=== PATIENT | female | born 1990 | race Caucasian/White ===

== ENCOUNTER → 2019-05-20 10:29 | Outpatient (CLI) | payer MEDICAID, SELFPAY ==
[2014-07-11 08:45] VITALS: BMI 27.5
[2019-05-20 12:08] LABS: Absolute Lymphocyte Count 3.35 X10^3/uL (0.83-4.51); Absolute Neutrophil Count 4.9 X10^3/uL (2.0-7.7); Basophil# 0.02 X10^3/uL; Basophil% 0.2 % (0-1); Eosinophil# 0.47 X10^3/uL; Hemoglobin 11.5 g/dL (12.0-15.0); Lymphocyte # 3.35 X10^3/ul (4.0); Lymphocyte % 35.9 % (19-41); Mean Corp Hgb Conc 31.1 g/dL (32-36); Mean Corpuscular Hgb 26.6 pg (27.0-32.0); Mean Corpuscular Volume 85.5 fL (81-99); Mean Platelet Vol. 9.1 fl (6.2-12.0); Monocyte# 0.56 X10^3/uL; NRBC Flagged by Analyzer 0 % (0-5); Neutrophil # 4.92 X10^3/uL (2.7-7.7); Neutrophil % 52.8 % (47-70); Platelet Count 521 K/mm3 (150-450); RBC Distribution Width CV 15.3 % (11.6-14.6); Red Blood Count 4.33 M/mm3 (4.2-5.4); White Blood Count 9.3 K/mm3 (4.4-11.0)
[2019-05-20 12:21] LABS: ALB/GLOB Ratio 0.8 RATIO (0.9-2.4); AST(SGOT) 13 U/L (15-37); Alanine Aminotransfer ALT/SGPT 18 U/L (13-56); Albumin, Serum 3.3 g/dL (3.2-5.0); Alkaline Phosphatase 86 U/L (45-117); Anion Gap 7 (5-15); BUN 7 mg/dL (7-18); BUN/Creat Ratio 10.4 RATIO (10-20); Calcium,Total 8.5 mg/dL (8.5-10.1); Chloride 107 mmol/L (98-107); Cholesterol 246 mg/dL (200); Creatinine, Serum 0.67 mg/dL (0.55-1.02); EST Glomerular Filtration Rate 109 mL/min (>60); Est Glom Filt Rate - Afr Amer 132 mL/min (>60); Globulin 3.9 g/dL (2.2-4.2); Glucose 100 mg/dL (74-106); High Density Lipoprotein 42 mg/dL; Potassium 3.8 mmol/L (3.5-5.1); Protein, Total 7.2 g/dL (6.4-8.2); Sodium Level 138 mmol/L (136-145); Triglycerides 154 mg/dL; Very Low Density Lipoprotein 31 mg/dL (5-40)
[2019-05-22 16:07] LABS: Alternaria alternata 0.12 kU/L (Class 0/I); Aspergillus fumigatus 0.16 kU/L (Class 0/I); Bahia Grass 1.68 kU/L (Class III); Bermuda Grass 1.89 kU/L (Class III); Bluegrass, Kentucky 1.81 kU/L (Class III); Cat Hair/Dander, Standard 0.11 kU/L (Class 0/I); Cedar, Mountain 1.42 kU/L (Class III); Cladosporium herbarum 0.12 kU/L (Class 0/I); D farinae Mite 4.18 kU/L (Class IV); D pteronyssinus 4.12 kU/L (Class IV); Dog Epithelia 0.66 kU/L (Class II); Elm, American White 1.82 kU/L (Class III); Hazelnut Tree 1.71 kU/L (Class III); Hickory, White 1.98 kU/L (Class III); Johnson Grass 1.95 kU/L (Class III); Maple/Box Elder 1.88 kU/L (Class III); Mucor racemosus 0.31 kU/L (Class 0/I); Mugwort 1.85 kU/L (Class III); Mulberry, White 1.59 kU/L (Class III); Oak, White 1.77 kU/L (Class III); Penicillium chrysogen <0.10 kU/L (Class 0); Plantain, English 2.19 kU/L (Class III); Ragweed, Short/Common 3.56 kU/L (Class III); Sheep Sorrel(Dock) 2.15 kU/L (Class III); Sweet Gum 2.35 kU/L (Class III)
[2019-05-23 12:03] LABS: Nettle 1.73 kU/L (Class III)
== END ==
PROVIDERS: PCP Family Medicine; Referring Provider Family Medicine; Visit Provider Family Medicine
DX: J30.9 Allergic rhinitis, unspecified (principal); Z82.49 Family history of ischemic heart disease and other diseases of the circulatory system
CPT/HCPCS: 36415; 80053; 80061; 85025; 86003

== ENCOUNTER 2020-12-25 14:20 | Emergency (ER) | payer MEDICAID, SELFPAY ==
[2020-12-25 14:23] VITALS: BP 126/92; PULSE 79; RESP 18; TEMP 36.6; O2SAT 98; BMI 30.6
[2020-12-25 14:57] VITALS: BP 127/101; PULSE 79; RESP 16; O2SAT 98
--- NOTE | 2020-12-25 14:59 | RAD_ITS ---
STUDY: X-RAY CHEST REASON FOR EXAM: Female, 30 years old. Cp TECHNIQUE: Single AP portable view of the chest. COMPARISON: None. FINDINGS: EKG electrodes are seen. The lungs are clear and expanded. There is no demonstrated pleural abnormality. Normal size heart. Normal mediastinum and milton. Normal visualized pulmonary arteries. Normal visualized aortic arch and descending thoracic aorta. Normal visualized thoracic spine. Normal visualized ribs, clavicles, and shoulders. There is no demonstrated abnormality of the visualized soft tissue structures of the upper abdomen. RAD/Chest 1 View (Portable) IMPRESSION: Normal x-ray examination of the chest. Electronically Signed: Alberto Padilla MD at 15:10 EDT , Service support ,
--- NOTE | 2020-12-25 15:46 | EKG12_ITS ---
Test Reason : CP Blood Pressure : / mmHG Vent. Rate : 073 BPM Atrial Rate : 073 BPM P-R Int : 126 ms QRS Dur : 076 ms QT Int : 428 ms P-R-T Axes : 055 039 055 degrees QTc Int : 471 ms Sinus rhythm with marked sinus arrhythmia Low voltage QRS Borderline ECG Confirmed by RAMYA THOMSON, JOSE ALBERTO ([id number]), news editor BRIDGET RM ([id number]) on 12/28/2020 11:12:36 AM Referred By: Confirmed By:JOSE ALBERTO BUI MD
--- NOTE | 2020-12-25 16:06 | ED.VIS.CHEST ---
HPI History of Present Illness Chief Complaint: Chest Pain Narrative Narrative: Patient presents with 1 day of bilateral upper chest wall pain unknown if there is any injury however she when she moves her arms she has chest pain she has no pleuritic component she has no shortness of breath no radiation of the chest pain. No recent fever chills cough or congestion no abdominal pain. PFSH PFSH Medical History Smoker Home Medications naproxen [Naprosyn] 500 mg PO BID #14 tab 12/25/20 [Rx Last Taken Unknown] Allergy/AdvReac Type Severity Reaction Status Date / Time amoxicillin Allergy Unknown Verified 12/25/20 14:25 Penicillins Allergy Unknown Verified 12/25/20 14:25 Social History Smoking Status: Current every day smoker tobacco type: cigarettes ROS ROS ED ROS Narrative Past medical history: Reviewed Medications: Reviewed Social history: Noncontributory Review of systems: All systems negative except as indicated General: No fever Eyes: No visual changes ENT: No upper airway congestion, normal voice Neck: No neck pain Cardiovascular: Chest pain as in HPI Respiratory: No shortness of breath or cough Gastrointestinal: No abdominal pain, nausea vomiting or diarrhea Genitourinary: No dysuria Musculoskeletal: Denies myalgias no difficulty with ambulation Skin: No rash Neurological: No memory loss, confusion or any focal weakness Psych: No recent behavioral changes Hematologic: No easy bleeding or easy bruising EXAM Physical Exam Narrative Exam Narrative: Physical exam General: Well nourished, Well developed, No Acute Distress Head: Normocephalic, Atraumatic Eyes: Conjunctiva not pale ENT: Moist mucous membranes Neck: Supple, Nontender, No lymphadenopathy Cardiovascular: Regular rate, Regular rhythm Chest wall: She has bilateral reproducible chest wall pain both with palpation and with movement of the arms. Respiratory: No distress, CTA bilaterally Abdomen: Soft, Nontender, Nondistended Back: Nontender, Normal Inspection. Negative for: CVA tenderness Extremities: Nontender, No edema Skin: Normal color, No rash Neurological: Alert, Normal Strength, Normal Sensation Psychological: Normal affect Const Vital Signs: 12/25/20 14:23 12/25/20 14:57 Temperature 98 F Temperature Source Temporal Pulse Rate 79 79 Respiratory Rate 18 16 Respiratory Effort Normal Blood Pressure 126/92 H 127/101 H Blood Pressure Mean 103 109 Pulse Ox 98 98 Oxygen Delivery Method Room Air Room Air MDM MDM MDM Narrative Medical decision making narrative: Patient has a normal EKG and chest x-ray this is likely musculoskeletal all discharged in stable condition. Radiography Diagnostic Testing: Clinical Impression(s) from Imaging Studies Chest X-Ray 12/25/20 14:59 IMPRESSION: Normal x-ray examination of the chest. Electronically Signed: Alberto Padilla MD at 15:10 EDT , Service support , Discharge Plan Triage Chief Complaint: Chest Pain ED Provider: Han Sandhu Dx/Rx/DC Orders Clinical Impression: Chest pain Instructions: ED Chest Pain, Uncertain Cause Prescriptions: New naproxen [Naprosyn] 500 mg tablet 500 mg PO BID Qty: 14 RF: 0 Primary Care Provider: Ranjeet Bernard Referrals: Ranjeet Bernard MD [Primary Care Provider] - Disposition Disposition: Home, Self Care
[2020-12-25 16:16] VITALS: BP 148/104; PULSE 77; RESP 16; O2SAT 99
== END 2020-12-25 16:17 | disposition home or self-care (01) ==
PROVIDERS: Emergency Provider Emergency Medicine; PCP Family Medicine
DX: R07.89 Other chest pain (principal); F17.210 Nicotine dependence, cigarettes, uncomplicated
CPT/HCPCS: 71045; 93005; 99283

== ENCOUNTER 2021-03-11 11:31 | Inpatient (IN) | payer MEDICAID, SELFPAY ==
[2021-03-11] VITALS (33 sets, daily range): BP systolic 54–153; BP diastolic 41–125; PULSE 37–99; RESP 11–158; TEMP 36.1–36.7; O2SAT 97–99; BMI 29.7; BMI 30.5
--- NOTE | 2021-03-11 11:36 | EKG12_ITS ---
Test Reason : CP Blood Pressure : / mmHG Vent. Rate : 104 BPM Atrial Rate : 104 BPM P-R Int : 120 ms QRS Dur : 074 ms QT Int : 366 ms P-R-T Axes : 064 004 033 degrees QTc Int : 481 ms AGE AND GENDER SPECIFIC ECG ANALYSIS Sinus tachycardia Anteroseptal infarct , possibly acute ACUTE MT / STEMI Abnormal ECG Confirmed by RAMYA THOMSON, JOSE ALBERTO ([id number]), make up editor BRIDGET RM ([id number]) on 03/12/2021 9:34:10 AM Referred By: Joyce Dolan Confirmed By:JOSE ALBERTO BUI MD
--- NOTE | 2021-03-11 11:41 | CM.ED ---
SW Note Referral Source: STEMI Referral Reason: STEMI SW and RN CM responded to STEMI alert. NO family present. SW remains available. Plan: Emotional support to family, if present. Erna HILLMAN
[2021-03-11] MEDS: Aspirin 81 MG TAB.CHEW 324 MG PO (11:42)
[2021-03-11] MEDS: TICAGRELOR 90 MG TABLET 180 MG PO (11:42)
[2021-03-11] MEDS: Heparin Injection (Vial) 5,000 UNIT/ML VIAL 4000 UNIT IV (11:42)
[2021-03-11] MEDS: Morphine 4 MG/ML Syringe IV (11:42)
--- NOTE | 2021-03-11 11:43 | ED.VIS.CHEST ---
HPI History of Present Illness Chief Complaint: Chest Pain Narrative Narrative: 30-year-old female presenting with chest pain. She states it started as a mild discomfort this morning when she woke up and she took ibuprofen and went back to sleep and woke up with the feeling of somebody stepping on her chest. She denies any cardiac history. She states to get has no medical problems. She does have a history of tobacco use. She states that her father has cardiac issues but she is not sure if he had them in a young age. Patient has no history of DVT/PE and no risk factors. PFSH PFSH Medical History Asthma CAD (coronary artery disease) Myocardial infarct (~03/11/21) Smoker Medical History no medical history Allergy/AdvReac Type Severity Reaction Status Date / Time amoxicillin Allergy Unknown Verified 03/11/21 11:36 Penicillins Allergy Unknown Verified 03/11/21 11:36 Family History (Updated 03/11/21 @ 14:58 by Malissa SHAY, PA) Father , age 68 CAD (coronary artery disease) had ICD Surgical History (Updated 03/11/21 @ 15:09 by Malissa SHAY, PA) S/P coronary artery stent placement Surgical History no surgical history Social History (Updated 03/11/21 @ 15:15 by Malissa SHAY, PA) current occupational status: disabled Smoking Status: Current every day smoker tobacco type: cigarettes additional social history: completed 9th grade, working on [employer] ED Constitutional Constitutional ED: Denies chills or fever(s) Eyes Eyes: Denies blurry vision or change in vision ENT ENT ED: Denies rhinorrhea or sore throat Cardiovascular Cardiovascular: Reports as per HPI Respiratory/Chest Respiratory/Chest: Reports dyspnea; Denies cough Gastrointestinal Gastrointestinal: Reports nausea; Denies abdominal pain or vomiting Genitourinary Genitourinary ED: Denies dysuria or hematuria Musculoskeletal Musculoskeletal: Reports back pain; Denies arthralgias or myalgias Integumentary Denies rash Neurologic Neurologic: Denies headache(s) EXAM Physical Exam Const Vital Signs: 03/11/21 11:32 03/11/21 11:36 03/11/21 11:47 Temperature 97.9 F Temperature Source Temporal Pulse Rate 98 Respiratory Rate 23 H 22 H Respiratory Effort Blood Pressure 152/125 H 153/125 H Blood Pressure Mean 134 Pulse Ox 99 99 Oxygen Delivery Method Room Air Room Air 03/11/21 11:48 Temperature Temperature Source Pulse Rate Respiratory Rate Respiratory Effort Normal Non-Labored Blood Pressure Blood Pressure Mean Pulse Ox Oxygen Delivery Method Positive well nourished Constitutional Narrative: Appears to be having significant chest pain General Appearance ED: Negative for pallor HEENT Reports moist mucous membranes normocephalic and atraumatic Eyes PERRL and EOMs intact bilaterally Chest Wall inspection of chest normal and palpation of chest normal Resp Resp Narrative: Tachypneic Auscultation: Negative for rales, rhonchi or wheezes Cardio regular rate and regular rhythm Neuro oriented x3 and CN's II-XII intact bilaterally Sensorium / Orientation: awake and alert Psych Attitude: agitated Mood & Affect: anxious Skin General Skin Exam: Negative for jaundice or pallor Heart Score History: Highly Suspicious ECG: Significant ST-Depression Age: </= 45 years Risk Factors: 1 or 2 Risk Factors Troponin: >/=3 x Normal Limit Score: 7 MDM MDM MDM Narrative Medical decision making narrative: Patient presented with chest pain and her initial EKG showed ST elevations in V2, V3, V4, V5. There is some slight elevation in V6 as well as leads I and aVL. Reciprocal changes are noted in lead III and aVF with depression. On my interpretation his EKG represents acute STEMI. STEMI alert is called. Patient given 324 of aspirin, Brilinta 180 mg, 4000 units of heparin. She did not have a chest x-ray in the emergency room due to needing to go to the [facility] emergently. Dr. Dolan came to the bedside we reviewed the EKG and he took her to the [facility]. Her blood work came back with a leukocytosis of 14.1, hemoglobin of 12.8, hematocrit 40.1, platelets 584 which is elevated. BMP was normal with exception of a slight elevation in the glucose at 127 without anion gap. Chloride was 110. Troponin returned at 784. It was reported to me that the patient had a 90% occlusion of her LAD. Impression: 1. STEMI Lab Data Labs: Laboratory Results - last 24 hr 03/11/21 03/11/21 11:40 11:40 WBC 14.1 H RBC 4.86 Hgb 12.8 Hct 40.1 MCV 82.5 MCH 26.3 L MCHC 31.9 L RDW Std Deviation 45.6 H RDW Coeff of Elke 15.1 H Plt Count 584 H MPV 8.7 Immature Gran % (Auto) 0.400 Neut % (Auto) 60.6 Lymph % (Auto) 29.9 [place] % (Auto) 5.2 Eos % (Auto) 3.6 Baso % (Auto) 0.3 Absolute Neuts (auto) 8.5 H Absolute Lymphs (auto) 4.20 Nucleated RBC % 0 Sodium 139 Potassium 3.5 Chloride 110 H Carbon Dioxide 22.0 Anion Gap 7 BUN 7 Creatinine 0.84 Estim Creat Clear Calc 79.54 Est GFR (MDRD) Af Amer 100 Est GFR (MDRD) Non-Af 83 BUN/Creatinine Ratio 8.3 L Glucose 127 H Calcium 8.9 Troponin I High Sens 784 H* Discharge Plan Disposition Disposition: Acute Care Hospital [facility]
[2021-03-11 11:52] LABS: Absolute Neutrophil Count 8.5 X10^3/uL (2.0-7.7); Basophil# 0.04 X10^3/uL; Basophil% 0.3 % (0-1); Eosinophil# 0.51 X10^3/uL; Eosinophils% 3.6 % (0-5); Hematocrit 40.1 % (37-47); Hemoglobin 12.8 g/dL (12.0-15.0); Lymphocyte % 29.9 % (19-41); Mean Corp Hgb Conc 31.9 g/dL (32-36); Mean Corpuscular Hgb 26.3 pg (27.0-32.0); Mean Corpuscular Volume 82.5 fL (81-99); Mean Platelet Vol. 8.7 fl (6.2-12.0); Monocyte# 0.73 X10^3/uL; Monocyte% 5.2 % (0-10); NRBC Flagged by Analyzer 0 % (0-5); Neutrophil # 8.52 X10^3/uL (2.7-7.7); Neutrophil % 60.6 % (47-70); Platelet Count 584 K/mm3 (150-450); RBC Distribution Width CV 15.1 % (11.6-14.6); RBC Distribution Width SD 45.6 fl (35.1-43.9); Red Blood Count 4.86 M/mm3 (4.2-5.4); White Blood Count 14.1 K/mm3 (4.4-11.0)
[2021-03-11 12:17] LABS: Anion Gap 7 (5-15); BUN 7 mg/dL (7-18); BUN/Creat Ratio 8.3 RATIO (10-20); Calcium,Total 8.9 mg/dL (8.5-10.1); Chloride 110 mmol/L (98-107); Creatinine, Serum 0.84 mg/dL (0.55-1.02); EST Glomerular Filtration Rate 83 mL/min (>60); Est Glom Filt Rate - Afr Amer 100 mL/min (>60); Estimated Creatinine Clearance 79.54 ml/min; Glucose 127 mg/dL (74-106); Potassium 3.5 mmol/L (3.5-5.1); Sodium Level 139 mmol/L (136-145); Troponin-I HS 784 pg/mL (3.0-54.0)
--- NOTE | 2021-03-11 12:18 | ED.RN ---
Anabelle Rodriguez aware pt is here and will be in icu after procedure. She will find a sitter for her daughter and will be in to see pt.
--- NOTE | 2021-03-11 13:15 | EKG12_ITS ---
Test Reason : AM EKG Blood Pressure : / mmHG Vent. Rate : 078 BPM Atrial Rate : 078 BPM P-R Int : 128 ms QRS Dur : 074 ms QT Int : 476 ms P-R-T Axes : 052 048 090 degrees QTc Int : 542 ms Normal sinus rhythm with sinus arrhythmia Prolonged QT Septal LA, age undetermined, cannot be excluded Abnormal ECG Confirmed by RAMYA THOMSON, JOSE ALBERTO ([id number]), food editor BRIDGET RM ([id number]) on 03/12/2021 1:55:02 PM Referred By: Joyce Dolan Confirmed By:JOSE ALBERTO BUI MD
--- NOTE | 2021-03-11 13:22 | PCM.CONS.C ---
Documented by User: LAURITA Hilton 03/12/21 09:10 Assessment & Plan Assessment/Plan (1) STEMI (ST elevation myocardial infarction): (2) CAD (coronary artery disease): (3) S/P coronary artery stent placement: PLAN: pt underwent thrombectomy and PCI to LAD would like to obtain a COVID test and toxicology report to help evaluate for causes of premature CAD. Will start pt on Brilinta, ASA, atorvastatin. When BP tolerates will start BB and GORAN-I. She will need to be on Brilinta at least one year prior to stopping and life long ASA will encourage smoking cessation will refer pt to cardiac rehab HPI Consult Data Date of Consult: 03/12/21 HPI Narrative HPI Narrative: YURI DAVIS, is a 30 F who presented to the ER with sudden onset CP. Pt notes that the CP started earlier this morning. She took some advil and went back to bed. When she awoke she had pain that was substernal, radiated to her right shoulder and to her back. Described it as pressure/heaviness, 10/10. Was relieved after stent was placed. She notes that she was in the ER in December for similar symptoms but were not as significant and had not had any since then. EKG today demonstrated ST elevations in V2,V3,V4,V5. Slight elevation in V6 as well as leads I and aVL. Reciprocal changes are noted in lead III and aVF with depression. STEMI was called, she was urgently taken to systems testing laboratory technician. Initial troponin was 784. She does have a hx of tobacco abuse, she tells me she has decreased this. She previously was smoking 2PPD and has decreased this to one. It does appear that she has untreated hyperlipidemia. She denies recent drug use. She thinks that she has a sinus infection but has not been treated for this. She notes that her father had CAD and at 68 but had surgery when she was young and had an ICD. PFSH Medical History Asthma CAD (coronary artery disease) Myocardial infarct (~03/11/21) Smoker Medical History no medical history Allergy/AdvReac Type Severity Reaction Status Date / Time amoxicillin Allergy Unknown Verified 03/11/21 11:36 Penicillins Allergy Unknown Verified 03/11/21 11:36 Family History Father , age 68 CAD (coronary artery disease) had ICD Surgical History S/P coronary artery stent placement Surgical History no surgical history Social History current occupational status: disabled Smoking Status: Current every day smoker tobacco type: cigarettes additional social history: completed 9th grade, working on [employer] Constitutional Constitutional: Reports fatigue; Denies change in weight, fever(s) or headache(s) Eyes Eyes: Reports none ENT HEENT: Reports dental pain, nasal congestion and post nasal drip; Denies dizziness, dysphagia or epistaxis Cardiovascular Cardiovascular: Reports as per HPI Respiratory/Chest Respiratory/Chest: Denies chest congestion, dyspnea on exertion, shortness of breath at rest or shortness of breath with exertion Gastrointestinal Gastrointestinal: Denies abdominal pain, bloating, melena or nausea Musculoskeletal Musculoskeletal: Denies arthralgias, deformity, difficulty walking or muscle spasms Neurologic Neurologic: Denies abnormal gait, dizziness, headache(s), loss of vision or syncope Physical Exam Const alert, oriented x3, no apparent distress and average body habitus Nutritional Appearance: obese HEENT normocephalic, head/scalp atraumatic, hearing grossly normal bilaterally, external ears normal and nasal mucous membranes and turbinates normal Teeth and Gingiva: poor dentition Throat: posterior oropharynx normal Eyes PERRL, EOMs intact bilaterally and conjunctivae normal Neck full ROM, no lymphadenopathy, supple and no JVD Resp normal respiratory effort and clear to auscultation bilaterally Cardio regular rate, regular rhythm, S1 normal heart sound, S2 normal heart sound, no murmurs, no rub, no gallops, no clicks and peripheral pulses 2+ throughout GI normal to inspection, nondistended, normoactive bowel sounds, soft to palpation, non-tender and non-distended Extremity normal to inspection and normal capillary refill Neuro oriented x3, CN's II-XII intact bilaterally, moves all extremities, no focal motor deficits and no sensory deficits noted Psych mental status grossly normal and thought process normal Risk Stratification Risk Stratification Applicable: Yes Age >/= 65: No >/= 3 CAD Risk Factors (HTN, HLD, DM, family hx of CAD, or current smoker): Yes Aspirin Use in the Past 7 Days: No Severe Angina (>/= episodes in 24 hours): Yes EKG ST Changes >/= 0.5mm: Yes Positive Cardiac Marker: Yes ERON Risk Stratification Score: 4 ERON % Risk: 20% Risk Charges/Coding Visit Charges Office Visits / Consults: [id number] IP Consult L5 Objective Data Vital Signs: Vital Signs Temp Pulse Resp BP Pulse Ox 97.9 F 98 22 H 153/125 H 99 03/11/21 11:32 03/11/21 11:32 03/11/21 11:36 03/11/21 11:36 03/11/21 11:47 Oxygen Delivery Method Room Air Weight: 167 lb 8.821 oz Body Mass Index (BMI) 29.7 Lab / Micro Data Result Diagrams: 03/12/21 05:00 03/12/21 05:00 Labs: Laboratory Results - last 24 hr 03/11/21 11:40: WBC 14.1 H, RBC 4.86, Hgb 12.8, Hct 40.1, MCV 82.5, MCH 26.3 L, MCHC 31.9 L, RDW Std Deviation 45.6 H, RDW Coeff of Elke 15.1 H, Plt Count 584 H, MPV 8.7, Immature Gran % (Auto) 0.400, Neut % (Auto) 60.6, Lymph % (Auto) 29.9, [place] % (Auto) 5.2, Eos % (Auto) 3.6, Baso % (Auto) 0.3, Absolute Neuts (auto) 8.5 H, Absolute Lymphs (auto) 4.20, Nucleated RBC % 0 03/11/21 11:40: Sodium 139, Potassium 3.5, Chloride 110 H, Carbon Dioxide 22.0, Anion Gap 7, BUN 7, Creatinine 0.84, Estim Creat Clear Calc 79.54, Est GFR (MDRD) Af Amer 100, Est GFR (MDRD) Non-Af 83, BUN/Creatinine Ratio 8.3 L, Glucose 127 H, Calcium 8.9, Troponin I High Sens 784 H* Cardiology Labs/Tests 03/11/21 11:40: WBC 14.1 H, RBC 4.86, Hgb 12.8, Hct 40.1, MCV 82.5, MCH 26.3 L, MCHC 31.9 L, Plt Count 584 H, MPV 8.7, Immature Gran % (Auto) 0.400, Neut % (Auto) 60.6, Lymph % (Auto) 29.9, [place] % (Auto) 5.2, Eos % (Auto) 3.6, Baso % (Auto) 0.3, Absolute Neuts (auto) 8.5 H, Nucleated RBC % 0 03/11/21 11:40: Sodium 139, Potassium 3.5, Chloride 110 H, Carbon Dioxide 22.0, Anion Gap 7, BUN 7, Creatinine 0.84, Est GFR (MDRD) Af Amer 100, Est GFR (MDRD) Non-Af 83, BUN/Creatinine Ratio 8.3 L, Glucose 127 H, Calcium 8.9 Cardiac Cath with PCI 03/11/2021: Hemodynamics; LVEDP measuring 28 mmHg Ejection fraction is around 40% with anteroapical hypokinesia There is no systolic gradient across aortic valve. There is no mitral regurgitation noted Coronary angiography; 1. Left main coronary artery normal angiographically bifurcating into LAD and left circumflex 2. LAD has large thrombus at the ostium and the proximal LAD occluded, postprocedure successful PCI showing large LAD reaching all the way to the apex with abundant septal branches and prominent first diagonal branch 3. Left circumflex large vessel normal angiographically 4. RCA large dominant normal angiographically Conclusion recommendation; This patient 30-year-old female presented with STEMI with large anterior septal DE with a large thrombus in the ostium and the proximal LAD With successful PCI as explained X-RAY CHEST 03/11/2021: REASON FOR EXAM: Female, 30 years old. Chest pain -- If not obtained within past 24 hours. TECHNIQUE: Single AP portable view of the chest. COMPARISON: Comparison is made with prior study dated 12/25/2020. FINDINGS: EKG electrodes are seen. The lungs are clear and expanded. There is no demonstrated pleural abnormality. Normal size heart. Normal mediastinum and milton. Normal visualized pulmonary arteries. Normal visualized aortic arch and descending thoracic aorta. Normal visualized thoracic spine. Normal visualized ribs, clavicles, and shoulders. There is no demonstrated abnormality of the visualized soft tissue structures of the upper abdomen. RAD/Chest 1 View (Portable) IMPRESSION: Normal x-ray examination of the chest. Documented by User: Dr. Joyce Dolan MD 03/12/21 16:39 Assessment & Plan Assessment/Plan (1) STEMI (ST elevation myocardial infarction): (2) CAD (coronary artery disease): (3) S/P coronary artery stent placement: PLAN: Patient with a STEMI/large thrombus in proximal LAD Underwent successful PCI and stenting of the proximal LAD Stable clinically She had echocardiographic evaluation which showed moderate LV systolic dysfunction ejection fraction in the range of 35-40% with anteroseptal and apical hypokinesia Also noted she has moderate size apical thrombus Patient started on Eliquis 5 mg twice a day, low-dose aspirin 81 mg and Brilinta 90 mg twice daily Cardiac care plan recommendations; 1. We will continue medical treatment 2. From cardiac standpoint patient will follow up with the cardiology team at [facility] 3. Cardiac rehab program/phase 1 4. DAPT/dual antiplatelet therapy with Brilinta 90 mg twice daily/low-dose aspirin for 1 year and continuation of low-dose aspirin indefinitely 5. To continue on GORAN inhibitor, beta-imma carvedilol, statin 6. Advise cessation of smoking. HPI Consult Data Date of Consult: 03/12/21 [facility] Medical History Asthma CAD (coronary artery disease) Myocardial infarct (~03/11/21) Smoker Medical History no medical history Allergy/AdvReac Type Severity Reaction Status Date / Time amoxicillin Allergy Unknown Verified 03/11/21 11:36 Penicillins Allergy Unknown Verified 03/11/21 11:36 Family History Father , age 68 CAD (coronary artery disease) had ICD Surgical History S/P coronary artery stent placement Surgical History no surgical history Social History current occupational status: disabled Smoking Status: Current every day smoker tobacco type: cigarettes additional social history: completed 9th grade, working on [employer] Lab / Micro Data Result Diagrams: 03/12/21 05:00 03/12/21 05:00
--- NOTE | 2021-03-11 13:26 | PCIREPORT_ITS ---
PCI Cardiac Cath Report PCI Report: PCI/STEMI cath report; 1. Access from right radial/right common femoral artery 2. Selective left coronary angiography 3. Selective right coronary angiography 4. Successful PCI of the culprit which is a large thrombus involving the proximal/ostial left anterior descending artery With a ERON 0 flow in the LAD, with placement of 3 x 30 mm overlapped by 3 x 15 mm drug-eluting stent/NEDA-Orsiro, postdilated with 3.5 x 20 mm NC balloon and achieve an excellent result With improvement of ERON flow from 0 to 3 and reduction of occluded LAD from 100% to 0% 5. Measurement of LVEDP 6. Low ventriculogram 7. Selective right common femoral artery angiography and placement of Perclose to close the right common femoral artery arteriotomy site 8. Placement of TR band to right radial artery arteriotomy site. Consent; Risk and benefit of the procedure explained in detail to the patient she elected to proceed informed consent obtained Preprocedure diagnosis; 30-year-old patient who with With sudden onset retrosternal chest pain with diaphoresis, relative at home called EMS service and brought at the emergency to the ER at [facility] where she has ST elevation in the anterior leads with reciprocal changes in the inferior Patient had no history of diabetes no history of hypertension she is a mother of 2-year-old daughter and her father with a history of MS with a history of bypass surgery Also noted patient had a history of smoking. Procedure in detail; Interventional equipment; 1. Diagnostic catheter 5 [place] JL 3.5 2. 5 [place] JR4 diagnostic catheter 3. 5 [place] angled pigtail catheter 4. 6 [place] 3.5 JL guide catheter 5. 0.014 run-through extra floppy 180 cm straight guidewire. 6. 2.5 x 50 mm regular balloon/Emerge-MR. 7. 3 x 30 mm drug-eluting stent//NEDA-Orsiro mission 8. 3 x 15 mm drug-eluting stent/DEWS-Orsiro [place] 9. 3.5 x 20 mm NC balloon Patient was brought to the emergency to the [employer] she was given heparin 5000 in the ER, aspirin, Brilinta Initially obtain access from the right radial artery however she had severe spasm with difficulty of proceeding with the guide catheter due to severe spasm with use of multiple nitroglycerin and verapamil Therefore we will proceed with access from the right common femoral artery under fluoroscopic guidance with a 6 [place] sheath placed in the right common femoral artery To proceed with a diagnostic catheter 5 [place] JR4, 5 [place] JR4 and selective angiogram of left and right. Obtain Identify the culprit lesion which is a large thrombus involving the large proximal and ostial LAD then we will proceed with guide catheter with use 6 [place] JL 3.5 guide advanced to the ascending aorta through the right common femoral artery and engaged the left ostium without difficulty and then we will proceed with the 0.014 guidewire across the lesion then predilated the lesion with 2.5 x 15 mm regular balloon this was followed by placement of a drug- eluting stent 3 x 30 overlapped by 3 x 15 and postdilated with 3.5 x 20 mm NC balloon and achieve an excellent result with ERON-3 flow maintained in the LAD Following this we used a pigtail catheter electrogram obtained 30 degree lateral projection in addition to measurement of LVEDP. Hemodynamics; LVEDP measuring 28 mmHg Ejection fraction is around 40% with anteroapical hypokinesia There is no systolic gradient across aortic valve. There is no mitral regurgitation noted Coronary angiography; 1. Left main coronary artery normal angiographically bifurcating into LAD and left circumflex 2. LAD has large thrombus at the ostium and the proximal LAD occluded, postprocedure successful PCI showing large LAD reaching all the way to the apex with abundant septal branches and prominent first diagonal branch 3. Left circumflex large vessel normal angiographically 4. RCA large dominant normal angiographically Conclusion recommendation; This patient 30-year-old female presented with STEMI with large anterior septal MS with a large thrombus in the ostium and the proximal LAD With successful PCI as explained Cardiac care plan recommendations; 1. We will check for hypercoagulable status of this patient 2. Patient to continue on DAPT/dual antiplatelet therapy with Brilinta 90 mg twice daily/aspirin 81 mg once a day for 1 year 3. We will start the patient on statin high-dose atorvastatin 40 mg 4. We will start on low-dose beta-mima and GORAN inhibitor as tolerated 5. Patient had history of smoking and advised cessation of smoking 6. Patient will be scheduled for cardiac rehab program at [facility] 7. Patient to follow-up with the cardiology team for continuation of cardiac care plan at [facility] cardiac center. Joyce Dolan MD,FAC,[facility]
[2021-03-11] MEDS: 0.9% Normal Saline 1,000 ML 75 ML IV (13:45)
--- NOTE | 2021-03-11 13:59 | CRPHASE1_ITS ---
Patient Communication PHII Cardiac Rehab Discussed with Patient:: Yes Guide to Cardiac Rehab Given to Patient:: Yes Cardiac Rehab Facility Choice List Given to Patient:: Yes Choice Program [facility][NOTE 3] PHII:: Communication Given to CR Cat Scan Tech:: Joyce Dolan Phase II Cardiac Rehab:: Yes Sessions:: 36 sessions - 3 days/wk, 12 weeks Cardiac Rehabilitation Info Cardiac Rehabilitation Program Information: Cardiac Rehabilitation is important for patients like you who are recovering from a heart problem. Cardiac rehabilitation programs are recognized as integral to the continued care of the patient with coronary heart disease. The cardiac rehabilitation program is designed to optimize a patient's physical, psychological, and social functioning. Health career manager work in cardiac rehabilitation programs and assist you with getting the treatments you need to get stronger and healthier - like exercise, healthy eating habits, and medications. Cardiac rehabilitation has been show to help people with heart problems live longer and have better life enjoyment than people who do not go to cardiac rehabilitation. Please contact the Cardiac Rehabilitation Program at [facility] at in two weeks if you have not heard from them.
--- NOTE | 2021-03-11 13:59 | CRPH1.INSTRU ---
General Education CAD and cardiac anatomy and function:: Needs reinforcement Explanation of diagnoses and procedures:: Needs reinforcement Sign/Symptoms of IL:: Needs reinforcement Antiplatelet therapy: Needs reinforcement Proper use of NTG-SL: Needs reinforcement Emergency procedures and activation of EMS: Needs reinforcement Compliance of all prescribed medications: Needs reinforcement Smoking Patient Nicotine/Smoking Risk Factors Are:: Cigarettes Recommendations Include:: Participation in a smoking cessation program Nicotine/Smoking Response Code:: Needs reinforcement Dyslipidemia Patient Dyslipidemia Risk Factors Are:: Total Cholesterol, Triglycerides, HDL, LDL Recommendations Include:: Lipid profile not available, Therapeutic Lifestyle Change dietary guidelines Dyslipidemia Response Code:: Needs reinforcement Overweight/Obesity Patient Overweight/Obesity Risk Factors Are:: Overweight = 26-29 Recommendations Include:: Weight loss of 5-10%, Reduced calorie diet, Exercise 5-7 times/week Overweight/Obesity:: Needs reinforcement Hypertension Patient Hypertension Risk Factors Are:: No documented hx of HTN Heart Disease Patient Heart Disease Risk Factors Are:: Family history of heart disease < 65 years old Recommendations Include:: Educated family members of their risk Heart Disease Response Code:: Needs reinforcement Diabetes Patient Diabetes Risk Factors Are:: No documented hx of diabetes Sedentary Patient Sedentary Risk Factors Are:: Lack of regular exercise Recommendations Include:: Aerobic exercise 5-7 times/week for 20-30 minutes continuously, Benefits of regular exercise, Discussed home walking program, Monitored Outpatient Cardiac Rehab Sedentary Response Code:: Needs reinforcement
--- NOTE | 2021-03-11 14:17 | EKG12_ITS ---
Test Reason : HYPOTENSION Blood Pressure : / mmHG Vent. Rate : 084 BPM Atrial Rate : 084 BPM P-R Int : 116 ms QRS Dur : 072 ms QT Int : 492 ms P-R-T Axes : 060 062 085 degrees QTc Int : 581 ms Normal sinus rhythm T wave abnormality, consider anterior ischemia Prolonged QT Abnormal ECG When compared with ECG of 11-MAR-2021 11:33, MANUAL COMPARISON REQUIRED, DATA IS UNCONFIRMED Confirmed by ANN THOMSON, MILES ([id number]), video tape editor BRIDGET RM ([id number]) on 03/15/2021 9:41:48 AM Referred By: Joyce Dolan Confirmed By:MILES JUAREZ MD
--- NOTE | 2021-03-11 14:18 | HP.PCM.HOS_ITS ---
HPI - General General Date of Admission: 03/11/21 Date of Service: 03/11/21 Chief Complaint: Chest pain and SOB on day of admission HPI Narrative YURI DAVIS, is a 30 F came to ER with chest pain mainly mild discomfort when she woke up. She took Advil and went to bed but pain did not relieved and woke up with substernal with radiation to right shoulder and back, felt like pressure or heaviness 10 out of 10 intensity. She had associated mild shortness of breath. Twelve-lead EKG shows ST elevation in V2 V3 V4 and V5 with slight elevation in V6, 1 and aVL. Reciprocal changes in lead III and aVF with depression. STEMI was called and patient taken to [facility] immediately. Right radial artery therefore was accessed through right common femoral artery. Large thrombus involving ostial and occluded proximal LAD was found with ERON 0 flow. Patient had 2 stents and balloon dilatation placed ERON flow from 0-3. EF Patient had perclosure device placed. EF 40% with anteroapical hypokinesia. No MR. No systolic gradient of her aortic valve. Patient was brought to ICU and was admitted. Soon after that patient developed hypotension and bradycardia, heart rate down to 30s and blood pressure systolic in 60s. I went to see the patient. IV fluid resuscitation bolus, Levophed drip was started. Salesforce Developer was channeler insole was called stat. The patient pain over right groin, perineal region right lumbar area. There is suspicion of a retroperitoneal bleed. Patient looked pale. The channeler insole came immediately. Right femoral artery pressure . Patient complained of pain. Salesforce Developer ordered 6 units of of PRBC transfusion with 2 units stat, vascular surgery consult, route delivery service driver consult, CT abdomen patient is hemodynamically stable. Patient went for CT abdomen when heart rate and blood pressure was notably stabl e. Family history: Father had coronary artery reviewed ICD in at the age of 68. [facility] Medical History Asthma CAD (coronary artery disease) Myocardial infarct (~03/11/21) Smoker Medical History no medical history Allergy/AdvReac Type Severity Reaction Status Date / Time amoxicillin Allergy Unknown Verified 03/11/21 11:36 Penicillins Allergy Unknown Verified 03/11/21 11:36 Family History Father , age 68 CAD (coronary artery disease) had ICD Surgical History S/P coronary artery stent placement Surgical History no surgical history Social History current occupational status: disabled Smoking Status: Current every day smoker tobacco type: cigarettes additional social history: completed 9th grade, working on [employer] ROS ROS Narrative Patient was seen while patient was having bradycardia, hypotension, mild headache and pain over right groin and femoral region. Complaining of mild blurry vision. As per ER physician and channeler insole consult note patient does not have any comorbidities. History of smoking 2 pack/day of cigarettes. Denies drug substance use No cardiac history. 14 complete ROS unobtainable as patient hemodynamically unstable, mild dizziness, and encephalopathic Vital Signs Vital Signs Vital Signs: 03/11/21 11:32 03/11/21 11:36 03/11/21 11:47 Temperature 97.9 F Temperature Source Temporal Pulse Rate 98 Respiratory Rate 23 H 22 H Respiratory Effort Blood Pressure 152/125 H 153/125 H Blood Pressure Mean 134 Pulse Ox 99 99 Oxygen Delivery Method Room Air Room Air 03/11/21 11:48 Temperature Temperature Source Pulse Rate Respiratory Rate Respiratory Effort Normal Non-Labored Blood Pressure Blood Pressure Mean Pulse Ox Oxygen Delivery Method Weight Weight: 172 lb 9.951 oz Body Mass Index (BMI) 30.5 Physical Exam Narrative General: Drowsy, lethargic, dizziness HEENT: Atraumatic, PERRLA, EOMI, Normocephalic Oral: No Gingival or Mucosal Lesions/ Ulcerations Neck: Supple, No JVD, Negative Carotid Bruits Lungs: Air entry diminished in bilateral lung bases. No crepitation/rhonchi. Tachypnea respiratory rate 22 to 23/min Cardiovascular: Sinus bradycardia, heart rate in 60s. BP 83/65. No murmur gallop or rub. Abdomen: Bowel Sounds , Soft, Non Tender, Non-Distended : Mild tenderness over right groin, lumbar area. External urethral catheter. Extremities: No edema, Capillary Refill Less than 3 Seconds Skin: Right groin firm pressure application. Dressing is dry. Musculoskeletal: No Tenderness to Palpation of Joints or Extremities Neurological: Cranial nerves II-XII grossly intact, complete neuro exam unobt ainable Psych/Mental Status: Lethargic, dizzy Results Lab / Micro Data Result Diagrams: 03/11/21 16:30 03/11/21 11:40 Labs: Laboratory Results - last 24 hr 03/11/21 11:40: WBC 14.1 H, RBC 4.86, Hgb 12.8, Hct 40.1, MCV 82.5, MCH 26.3 L, MCHC 31.9 L, RDW Std Deviation 45.6 H, RDW Coeff of Elke 15.1 H, Plt Count 584 H, MPV 8.7, Immature Gran % (Auto) 0.400, Neut % (Auto) 60.6, Lymph % (Auto) 29.9, [place] % (Auto) 5.2, Eos % (Auto) 3.6, Baso % (Auto) 0.3, Absolute Neuts (auto) 8.5 H, Absolute Lymphs (auto) 4.20, Nucleated RBC % 0 03/11/21 11:40: Sodium 139, Potassium 3.5, Chloride 110 H, Carbon Dioxide 22.0, Anion Gap 7, BUN 7, Creatinine 0.84, Estim Creat Clear Calc 79.54, Est GFR (MDRD) Af Amer 100, Est GFR (MDRD) Non-Af 83, BUN/Creatinine Ratio 8.3 L, Gl ucose 127 H, Calcium 8.9, Troponin I High Sens 784 H* Assessment & Plan Assessment/Plan (1) STEMI (ST elevation myocardial infarction): QUALIFIERS: Involved coronary artery: LAD coronary artery Qualified Code(s): I21.02 - ST elevation (STEMI) myocardial infarction involving left anterior descending coronary artery PLAN: 1. Anterior wall STEMI: Patient went for immediate cardiac [facility] as per STEMI protocol. Patient had thrombectomy and PCI to LAD as mentioned in HPI. Initially, right radial artery approach was taken but patient had severe spasm and guidewire could not be advanced even after verapamil and other agents and then right femoral artery approach was done. Patient had complication with hypotension and bradycardia after cardiac cath in ICU. IV fluid volume resuscitation, 1 unit PRBC transfusion given with high suspicion of retroperitoneal bleed and temporally started him on IV norepinephrine drip. CT abdomen and pelvis with IV contrast shows no evidence of retroperitoneal hematoma. Asymptomatic gallstones. 2. Hypotension and bradycardia, etiology exactly unclear possible vasovagal effect, possible distributive shock: As mentioned above, route delivery service driver was consulted. H&H done twice 1 during hypotension and later on showed hemoglobin 12.6 and 13.0 on baseline. Platelet count 524,000. Patient has leukocytosis with high neutrophil. I talked to Dr. Dolan, he said no aspirin or Brilinta today but resume from tomorrow. No beta-mima or antihypertensive as patient on Levophed drip. Atorvastatin 40 mg nightly daily. Fasting profile tomorrow a.m. U tox and COVID-19 PCR ordered. Serum test is negative. 3. Chronic cigarette smoking: Patient smokes a pack per day. Was previously smoking 2 packs/day. 4. DVT prophylaxis: Low risk. Bilateral SCDs. No anticoagulation today. Evaluate tomorrow if no bleeding, patient will be on aspirin and Brilinta. 5 Leukocytosis with left shift, etiology unclear: Patient does not show signs or symptoms of infection. History of dyslipidemia, untreated: Fasting for ordered. Not on any statin at home. Chest x-ray reported normal. No hypoxia. Charges/Coding Visit Charges Inpatient E&M: 44066 Init Hosp L3
--- NOTE | 2021-03-11 14:36 | EKG12_ITS ---
Test Reason : AM EKG Blood Pressure : / mmHG Vent. Rate : 080 BPM Atrial Rate : 080 BPM P-R Int : 130 ms QRS Dur : 074 ms QT Int : 502 ms P-R-T Axes : 060 034 102 degrees QTc Int : 578 ms Normal sinus rhythm Low voltage QRS Septal infarct , age undetermined T wave abnormality, consider anterolateral ischemia Prolonged QT Abnormal ECG When compared with ECG of 12-MAR-2021 05:01, T wave inversion more evident in Anterolateral leads Confirmed by ANN THOMSON, MILES ([id number]), offline editor BRIDGET RM ([id number]) on 03/16/2021 10:02:32 AM Referred By: Joyce Dolan Confirmed By:MILES JUAREZ MD
--- NOTE | 2021-03-11 14:45 | RAD_ITS ---
STUDY: X-RAY CHEST REASON FOR EXAM: Female, 30 years old. Chest pain -- If not obtained within past 24 hours. TECHNIQUE: Single AP portable view of the chest. COMPARISON: Comparison is made with prior study dated 12/25/2020. FINDINGS: EKG electrodes are seen. The lungs are clear and expanded. There is no demonstrated pleural abnormality. Normal size heart. Normal mediastinum and mil[place]. Normal visualized pulmonary arteries. Normal visualized aortic arch and descending thoracic aorta. Normal visualized thoracic spine. Normal visualized ribs, clavicles, and shoulders. There is no demonstrated abnormality of the visualized soft tissue structures of the upper abdomen. RAD/Chest 1 View (Portable) IMPRESSION: Normal x-ray examination of the chest. Electronically Signed: Alberto Padilla MD at 15:00 EST , Service support ,
[2021-03-11] MEDS: 0.9% Normal Saline 1,000 ML 999 ML IV (15:11)
[2021-03-11 15:26] LABS: Absolute Neutrophil Count 12.5 X10^3/uL (2.0-7.7); Basophil# 0.03 X10^3/uL; Basophil% 0.2 % (0-1); Eosinophil# 0.24 X10^3/uL; Eosinophils% 1.4 % (0-5); Hematocrit 39.7 % (37-47); Hemoglobin 12.6 g/dL (12.0-15.0); Lymphocyte % 21.6 % (19-41); Mean Corp Hgb Conc 31.7 g/dL (32-36); Mean Corpuscular Hgb 26.6 pg (27.0-32.0); Mean Corpuscular Volume 83.8 fL (81-99); Mean Platelet Vol. 8.9 fl (6.2-12.0); Monocyte# 0.65 X10^3/uL; Monocyte% 3.8 % (0-10); NRBC Flagged by Analyzer 0 % (0-5); Neutrophil # 12.45 X10^3/uL (2.7-7.7); Neutrophil % 72.5 % (47-70); Platelet Count 532 K/mm3 (150-450); RBC Distribution Width CV 15.1 % (11.6-14.6); RBC Distribution Width SD 45.7 fl (35.1-43.9); Red Blood Count 4.74 M/mm3 (4.2-5.4); White Blood Count 17.2 K/mm3 (4.4-11.0)
--- NOTE | 2021-03-11 15:26 | CT_ITS ---
STUDY: CT ABDOMEN AND PELVIS WITHOUT CONTRAST REASON FOR EXAM: Female, 30 years old. Possible retroperitoneal hematoma. RADIATION DOSAGE (If Supplied By Facility): CTDIvol = ( 15.64 ) mGy, DLP = ( 801.18 ) mGycm TECHNIQUE: Transaxial images were obtained from the dome of the diaphragm to the symphysis pubis without oral contrast, and without intravenous contrast. Sagittal and coronal images were reconstructed. Individualized dose optimization techniques were used for this CT. COMPARISON: None. FINDINGS: The visualized lung bases are unremarkable. The visualized portions of the heart are within normal limits. Normal liver. There are multiple gallstones. Normal spleen. Normal pancreas. Normal bilateral adrenal glands. Normal right kidney. Normal left kidney. Normal visualized stomach. Normal small intestine. Normal colon. The appendix is visualized and appears normal. Normal abdominal aorta. Normal inferior vena cava. Normal retroperitoneum. Distended urinary bladder. Normal abdominal wall. Normal osseous structures. CT/Abdomen/Pelvis without Cont IMPRESSION: No evidence of retroperitoneal hematoma. Gallstones. Electronically Signed: Alberto Padilla MD at 16:01 EST , Service support ,
[2021-03-11 15:53] LABS: BNP,B-Type NATRIURETIC PEPTIDE 76.2 pg/mL (0-100)
[2021-03-11 15:54] LABS: Magnesium 1.9 mg/dL (1.6-2.6); Troponin-I HS > 25000 pg/mL (3.0-54.0)
[2021-03-11 15:59] LABS: Internal QC Validated? YES +Cl - CLEAR BKGD; Pregnancy, Serum, hCG Quali. NEGATIVE Negative
[2021-03-11 16:41] LABS: Absolute Lymphocyte Count 2.98 X10^3/uL (0.83-4.51); Absolute Neutrophil Count 16.2 X10^3/uL (2.0-7.7); Basophil# 0.05 X10^3/uL; Basophil% 0.2 % (0-1); Eosinophil# 0.22 X10^3/uL; Eosinophils% 1.1 % (0-5); Hematocrit 39.1 % (37-47); Lymphocyte # 2.98 X10^3/ul (0.83-4.51); Lymphocyte % 14.7 % (19-41); Mean Corp Hgb Conc 33.2 g/dL (32-36); Mean Corpuscular Hgb 27.3 pg (27.0-32.0); Mean Platelet Vol. 8.7 fl (6.2-12.0); Monocyte# 0.72 X10^3/uL; Monocyte% 3.5 % (0-10); NRBC Flagged by Analyzer 0 % (0-5); Neutrophil # 16.24 X10^3/uL (2.7-7.7); Neutrophil % 80.1 % (47-70); Platelet Count 524 K/mm3 (150-450); RBC Distribution Width CV 14.8 % (11.6-14.6); RBC Distribution Width SD 44.7 fl (35.1-43.9); Red Blood Count 4.77 M/mm3 (4.2-5.4); White Blood Count 20.3 K/mm3 (4.4-11.0)
[2021-03-11 17:13] LABS: Troponin-I HS > 25000 pg/mL (3.0-54.0)
--- NOTE | 2021-03-11 17:17 | EX.PCM.CONCC ---
Assessment & Plan Assessment/Plan (1) STEMI (ST elevation myocardial infarction): QUALIFIERS: Involved coronary artery: LAD coronary artery Qualified Code(s): I21.02 - ST elevation (STEMI) myocardial infarction involving left anterior descending coronary artery (2) S/P coronary artery stent placement: (3) CAD (coronary artery disease): PLAN: RECOMMENDATIONS: 1. Wean Levophed as tolerated 2. Hold on any beta-blockers for now 3. No further blood transfusions 4. Continue cardiac monitoring 5. Okay to use albuterol as needed 6. No further H&H until tomorrow morning indicated IMPRESSIONS: 1. Acute cardiogenic shock status post ST elevation SD status post intervention Patient currently on pressor therapy, but weaning quickly. Clinical suspicion for a vagal response leading to acute findings. Patient does not have any retroperitoneal hematoma. Hemoglobin is adequate at this time. Patient will be weaned off of pressors prior to initiation of any beta-blockers or GORAN inhibitors. Continue to monitor with telemetry. Reasonable to add atropine to the bedside if patient has another bradycardic episode. 2. Tobacco abuse/reported asthma/elevated blood sugars Extensive discussion with the patient about the necessity of complete smoking cessation to avoid future complications. Patient reports a history of asthma, but is not currently on any therapy. Patient does have some wheezing on exam, but this may be a pulmonary edema. Albuterol as needed is likely sufficient. We will hold off on any steroids at this time, especially given elevated blood sugars. Could consider obtaining a hemoglobin A1c/diabetic work-up as an outpatient. TIME: 32 minutes critical care time spent addressing patient's hypotension, concern for retroperitoneal hematoma, STEMI, review of all data and collaboration with care team HPI Consult Data Date of Consult: 03/11/21 HPI Narrative HPI Narrative: YURI DAVIS is a 30 F, with a past medical history significant for tobacco abuse and asthma, who presents to [facility] on 03/11/2021 secondary to mild chest discomfort upon waking up. Patient had taken some ibuprofen and went back to sleep. Patient described it as someone stepping on my chest. Patient does not have any history of cardiac issues and has never had DVT/PE. Patient does state that her father has cardiac issues. In the ER, patient was hypertensive at 152/125 and tachypneic at 23 breaths/min. Initial EKG showed ST elevations in V2 through V5 with reciprocal depression. STEMI was called. Patient was given aspirin, Brilinta and heparin and transferred to the [facility] for intervention. Laboratory work-up showed a white blood cell count of 14.1, creatinine of 0.84 and a potassium of 3.5. Initial troponin was 784. In the [facility], patient was unable to have a radial approach secondary to vasospasm in the brachial area. Patient ultimately had to use a femoral approach and was noted to have a large clot in the left main. This was addressed by the eyeglass cutter and the patient was transferred to the intensive care unit. I was called emergently to the patient's room for concerns for a need for a central line or a retroperitoneal hematoma. Patient reportedly became bradycardic and hypotensive along with becoming pale and diaphoretic. Patient was seen by the eyeglass cutter at the bedside. A nurse was applying pressure to the groin. Patient was ordered a unit of trauma blood prior to my arrival. Ultrasound machine was obtained and patient was evaluated using an abdominal probe. No retroperitoneal hematoma could be noted. However, there was significant concern by the eyeglass cutter, so patient was personally escorted to the CT scanner for definitive study. Patient also was initiated on Levophed through a peripheral IV. No hematoma was noted on CT scan of the chest and the patient was transferred back to the intensive care unit. Patient appears to be much improved at this time. Patient is still requiring Levophed, but requirements have significantly decreased. Patient is not reporting any chest pain, Harshil pain, nausea or vomiting. Patient does not report any history of hypercoagulable state. Patient is a smoker and reportedly does have asthma. 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 Patient is not currently on any inhaler therapy. Patient is reportedly not a diabetic, but did have a blood sugar of 127 on presentation. Review of systems otherwise negative from a constitutional, HEENT, respiratory, cardiovascular, GI, genitourinary, musculoskeletal, skin, neurologic, psychiatric and hematologic system unless stated above. PFSH Medical History Asthma CAD (coronary artery disease) Myocardial infarct (~03/11/21) Smoker Medical History no medical history Allergy/AdvReac Type Severity Reaction Status Date / Time amoxicillin Allergy Unknown Verified 03/11/21 11:36 Penicillins Allergy Unknown Verified 03/11/21 11:36 Family History Father , age 68 CAD (coronary artery disease) had ICD Surgical History S/P coronary artery stent placement Surgical History no surgical history Social History current occupational status: disabled Smoking Status: Current every day smoker tobacco type: cigarettes additional social history: completed 9th grade, working on [employer] ROS Narrative See HPI Physical Exam Const alert, oriented x3 and no apparent distress Nutritional Appearance: obese HEENT normocephalic, head/scalp atraumatic, hearing grossly normal bilaterally, external ears normal and nasal mucous membranes and turbinates normal Teeth and Gingiva: other Other Details: Primarily edentulous Throat: posterior oropharynx normal Eyes PERRL, EOMs intact bilaterally and conjunctivae normal Neck full ROM, no lymphadenopathy, supple and no JVD Chest inspection of chest normal Chest: symmetrical chest wall rise; Negative for crepitus Resp normal respiratory effort and normal air movement Auscultation: clear to auscultation bilaterally and wheezes expiratory wheezes; Negative for rales or rhonchi Cardio regular rate, regular rhythm, S1 normal heart sound, S2 normal heart sound, no murmurs, no rub, no gallops, no clicks and peripheral pulses 2+ throughout GI normal to inspection, nondistended, normoactive bowel sounds, soft to palpation, non-tender and non-distended Extremity normal to inspection and normal capillary refill Skin no rashes or lesions noted Skin Narrative: No significant ecchymosis noted at insertion sites Neuro oriented x3, CN's II-XII intact bilaterally, moves all extremities, no focal motor deficits and no sensory deficits noted Psych mental status grossly normal and thought process normal Lab / Micro Data Result Diagrams: 03/11/21 16:30 03/11/21 11:40 Labs: Laboratory Results - last 24 hr 03/11/21 11:40: WBC 14.1 H, RBC 4.86, Hgb 12.8, Hct 40.1, MCV 82.5, MCH 26.3 L, MCHC 31.9 L, RDW Std Deviation 45.6 H, RDW Coeff of [place]ke 15.1 H, Plt Count 584 H, MPV 8.7, Immature Gran % (Auto) 0.400, Neut % (Auto) 60.6, Lymph % (Auto) 29.9, [place] % (Auto) 5.2, Eos % (Auto) 3.6, Baso % (Auto) 0.3, Absolute Neuts (auto) 8.5 H, Absolute Lymphs (auto) 4.20, Nucleated RBC % 0 03/11/21 11:40: Sodium 139, Potassium 3.5, Chloride 110 H, Carbon Dioxide 22.0, Anion Gap 7, BUN 7, Creatinine 0.84, Estim Creat Clear Calc 79.54, Est GFR (MDRD) Af Amer 100, Est GFR (MDRD) Non-Af 83, BUN/Creatinine Ratio 8.3 L, Glucose 127 H, Calcium 8.9, Troponin I High Sens 784 H* 03/11/21 15:15: Magnesium 1.9, Troponin I High Sens > 80905 H* 03/11/21 15:15: Serum , Qual NEGATIVE 03/11/21 15:15: B-Natriuretic Peptide 76.2 03/11/21 15:15: WBC 17.2 H, RBC 4.74, Hgb 12.6, Hct 39.7, MCV 83.8, MCH 26.6 L, MCHC 31.7 L, RDW Std Deviation 45.7 H, RDW Coeff of [place]ke 15.1 H, Plt Count 532 H, MPV 8.9, Immature Gran % (Auto) 0.500, Neut % (Auto) 72.5 H, Lymph % (Auto) 21.6, [place] % (Auto) 3.8, Eos % (Auto) 1.4, Baso % (Auto) 0.2, Absolute Neuts (auto) 12.5 H, Absolute Lymphs (auto) 3.70, Nucleated RBC % 0 03/11/21 15:15: Blood Type A POSITIVE, Antibody Screen NEGATIVE, Crossmatch See Detail 03/11/21 16:30: Troponin I High Sens > 26027 H* 03/11/21 16:30: WBC 20.3 H, RBC 4.77, Hgb 13.0, Hct 39.1, MCV 82.0, MCH 27.3, MCHC 33.2, RDW Std Deviation 44.7 H, RDW Coeff of [place]ke 14.8 H, Plt Count 524 H, MPV 8.7, Immature Gran % (Auto) 0.400, Neut % (Auto) 80.1 H, Lymph % (Auto) 14.7 L, [place] % (Auto) 3.5, Eos % (Auto) 1.1, Baso % (Auto) 0.2, Absolute Neuts (auto) 16.2 H, Absolute Lymphs (auto) 2.98, Nucleated RBC % 0 Radiology Impression Chest X-Ray 03/11/21 14:45 IMPRESSION: Normal x-ray examination of the chest. Electronically Signed: Alberto Padilla MD at 15:00 EST , Service support , Abdomen/Pelvis CT 03/11/21 15:26 IMPRESSION: No evidence of retroperitoneal hematoma. Gallstones. Electronically Signed: Alberto Padilla MD at 16:01 EST , Service support , Charges/Coding Procedures Hospitalists Procedures: [id number] Critial Care 1st Hr
--- NOTE | 2021-03-11 17:29 | CHAPLAIN ---
Type of Pastoral Visit ___ Initial Visit ___ Follow-up Visit ___ On-call Visit ___ General Patient Visit ___ Spiritual Assessment ___ Family Conference ___ Bereavement ___ Rapid Response ___ Code Blue ___ Other (describe below) Pastoral Care Referral From ___ Patient ___ Family ___ Nurse ___ Physician ___ De Icer Kit Assembler ___ Metal Tile Lather ___ Other (describe below) Sacrament/Intervention ___ Active listening ___ Anointing ___ Scientologist ___ Bereavement ___ Communion ___ Sarah exploration ___ ___ Life review ___ Prayer ___ Reconciliation ___ Sacrament of Sick ___ Supportive presence ___ Wedding ___ Other (describe below) Pastoral Comments responded to stemi - no family present
--- NOTE | 2021-03-11 17:31 | PCS.PANDOC ---
PANDEMIC DOCUMENTATION INITIATED: Date: 10/05/2020 Time: 190
[2021-03-11] MEDS: TICAGRELOR 90 MG TABLET PO (20:55)
[2021-03-11] MEDS: Atorvastatin Calcium 40 MG Tablet PO (20:55)
[2021-03-12] VITALS (19 sets, daily range): BP systolic 82–112; BP diastolic 57–83; PULSE 66–101; RESP 14–22; TEMP 36.1–36.6; O2SAT 96–100
[2021-03-12 00:20] LABS: Amphetamine Urine VISTA NEGATIVE (<1000 ng/mL); Barbiturate Urine VISTA NEGATIVE (< 200 ng/mL); Benzodiazepine Urine VISTA POSITIVE (< 200 ng/mL); Cocaine Urine VISTA NEGATIVE (< 300 ng/mL); Ecstacy Urine VISTA NEGATIVE (< 500 ng/mL); Methadone Urine VISTA NEGATIVE (< 300 ng/mL); PCP Urine VISTA NEGATIVE (< 25 ng/mL); THC Urine VISTA NEGATIVE (< 50 ng/mL); Vista UDS pH Range 4
[2021-03-12 01:41] LABS: Phosphorus 3.3 mg/dL (2.5-4.9)
[2021-03-12 01:43] LABS: Troponin-I HS 18431 pg/mL (3.0-54.0)
[2021-03-12] MEDS: Ondansetron 4 MG/2 ML Vial IV (05:07)
[2021-03-12 05:08] LABS: Absolute Lymphocyte Count 2.31 X10^3/uL (0.83-4.51); Absolute Neutrophil Count 13.2 X10^3/uL (2.0-7.7); Basophil# 0.03 X10^3/uL; Basophil% 0.2 % (0-1); Eosinophil# 0.14 X10^3/uL; Eosinophils% 0.9 % (0-5); Hematocrit 37.7 % (37-47); Hemoglobin 12.4 g/dL (12.0-15.0); Lymphocyte # 2.31 X10^3/ul (0.83-4.51); Lymphocyte % 14.1 % (19-41); Mean Corp Hgb Conc 32.9 g/dL (32-36); Mean Corpuscular Hgb 27.4 pg (27.0-32.0); Mean Corpuscular Volume 83.2 fL (81-99); Mean Platelet Vol. 8.8 fl (6.2-12.0); Monocyte# 0.65 X10^3/uL; NRBC Flagged by Analyzer 0 % (0-5); Neutrophil # 13.17 X10^3/uL (2.7-7.7); Neutrophil % 80.4 % (47-70); Platelet Count 436 K/mm3 (150-450); RBC Distribution Width SD 45.5 fl (35.1-43.9); Red Blood Count 4.53 M/mm3 (4.2-5.4); White Blood Count 16.4 K/mm3 (4.4-11.0)
[2021-03-12 05:36] LABS: ALB/GLOB Ratio 0.8 RATIO (0.9-2.4); AST(SGOT) 80 U/L (15-37); Alanine Aminotransfer ALT/SGPT 42 U/L (13-56); Albumin, Serum 2.9 g/dL (3.2-5.0); Alkaline Phosphatase 75 U/L (45-117); Anion Gap 8 (5-15); BUN 8 mg/dL (7-18); BUN/Creat Ratio 14.5 RATIO (10-20); Chloride 108 mmol/L (98-107); Cholesterol 156 mg/dL (200); Creatinine, Serum 0.55 mg/dL (0.55-1.02); EST Glomerular Filtration Rate 135 mL/min (>60); Est Glom Filt Rate - Afr Amer 164 mL/min (>60); Estimated Creatinine Clearance 121.47 ml/min; Globulin 3.6 g/dL (2.2-4.2); Glucose 104 mg/dL (74-106); High Density Lipoprotein 36 mg/dL; Potassium 3.5 mmol/L (3.5-5.1); Protein, Total 6.5 g/dL (6.4-8.2); Sodium Level 138 mmol/L (136-145); Thyroid Stim Hormone (TSH) 0.82 uIU/mL (0.358-3.74); Triglycerides 97 mg/dL; Very Low Density Lipoprotein 19 mg/dL (5-40)
--- NOTE | 2021-03-12 06:48 | PN.CC_ITS ---
Assessment & Plan Assessment/Plan (1) STEMI (ST elevation myocardial infarction): QUALIFIERS: Involved coronary artery: LAD coronary artery Qualified Code(s): I21.02 - ST elevation (STEMI) myocardial infarction involving left anterior descending coronary artery (2) S/P coronary artery stent placement: (3) CAD (coronary artery disease): PLAN: RECOMMENDATIONS: 1. Likely okay to initiate medical therapy for STEMI 2. Increase activity per cardiology 3. No further blood transfusions 4. Continue cardiac monitoring 5. Okay to leave the intensive care unit from my perspective 6. Hemodynamically stable on room air. We will sign off from a critical care perspective IMPRESSIONS: 1. Acute cardiogenic shock status post ST elevation IA status post i ntervention Patient no longer requiring pressor therapy. Clinical suspicion for a vag al response leading to acute bradycardia and hypotension yesterday. Patient does not have any retroperitoneal hematoma. Hemoglobin is adequate at this time. Likely okay to initiate medical therapy for ST elevation IA. Continue to monitor with telemetry. Okay to leave the intensive care unit from my perspective 2. Tobacco abuse/reported asthma/elevated blood sugars Extensive discussion with the patient about the necessity of complete smoking cessation to avoid future complications. Patient reports a history of asthma, but is not currently on any therapy. Patient does have some wheezing on exam, but this may be a pulmonary edema. Albuterol as needed is likely sufficient. We will hold off on any steroids at this time, especially given elevated blood sugars. Could consider obtaining a hemoglobin A1c/diabetic work- up as an outpatient. Patient could follow-up as an outpatient for evaluation of asthma if requested, otherwise defer to PCP Subjective Subjective Patient did well overnight. Patient has been off of Levophed since last evening and tolerating well. Patient with no complaints this morning. Patient is not having any nausea, chest pain or palpitations. No significant recurrent ectopy has been noted overnight. Objective Data Objective Data Vital Signs: Vital Signs Temp Pulse Resp BP Pulse Ox 36.3 C L 69 16 88/57 L 97 03/12/21 00:00 03/12/21 06:00 03/12/21 06:00 03/12/21 06:00 03/12/21 06:00 Oxygen Delivery Method Room Air Weight: 83.1 kg Body Mass Index (BMI) 30.5 Intake & Output: Intake and Output for Last 24 Hours 03/10/21 03/11/2103/12/22 23:59 23:59 23:59 Intake Total 1367.26 / 1367.26 Output Total 500 / 800 300 / 300 Balance 867.26 / 567.26 -300 / -300 Lab / Micro Data Result Diagrams: 03/12/21 05:00 03/12/21 05:00 Labs: Laboratory Results - last 24 hr 03/11/21 11:40: WBC 14.1 H, RBC 4.86, Hgb 12.8, Hct 40.1, MCV 82.5, MCH 26.3 L, MCHC 31.9 L, RDW Std Deviation 45.6 H, RDW Coeff of Elke 15.1 H, Plt Count 584 H, MPV 8.7, Immature Gran % (Auto) 0.400, Neut % (Auto) 60.6, Lymph % (Auto) 29.9, [place] % (Auto) 5.2, Eos % (Auto) 3.6, Baso % (Auto) 0.3, Absolute Neuts (auto) 8.5 H, Absolute Lymphs (auto) 4.20, Nucleated RBC % 0 03/11/21 11:40: Sodium 139, Potassium 3.5, Chloride 110 H, Carbon Dioxide 22.0, Anion Gap 7, BUN 7, Creatinine 0.84, Estim Creat Clear Calc 79.54, Est GFR (MDRD) Af Amer 100, Est GFR (MDRD) Non-Af 83, BUN/Creatinine Ratio 8.3 L, Glucose 127 H, Calcium 8.9, Troponin I High Sens 784 H* 03/11/21 15:15: Magnesium 1.9, Troponin I High Sens > 74251 H* 03/11/21 15:15: Serum , Qual NEGATIVE 03/11/21 15:15: B-Natriuretic Peptide 76.2 03/11/21 15:15: WBC 17.2 H, RBC 4.74, Hgb 12.6, Hct 39.7, MCV 83.8, MCH 26.6 L, MCHC 31.7 L, RDW Std Deviation 45.7 H, RDW Coeff of Elke 15.1 H, Plt Count 532 H, MPV 8.9, Immature Gran % (Auto) 0.500, Neut % (Auto) 72.5 H, Lymph % (Auto) 21.6, [place] % (Auto) 3.8, Eos % (Auto) 1.4, Baso % (Auto) 0.2, Absolute Neuts (auto) 12.5 H, Absolute Lymphs (auto) 3.70, Nucleated RBC % 0 03/11/21 15:15: Blood Type A POSITIVE, Antibody Screen NEGATIVE, Crossmatch See Detail 03/11/21 16:30: Troponin I High Sens > 87808 H* 03/11/21 16:30: WBC 20.3 H, RBC 4.77, Hgb 13.0, Hct 39.1, MCV 82.0, MCH 27.3, MCHC 33.2, RDW Std Deviation 44.7 H, RDW Coeff of Elke 14.8 H, Plt Count 524 H, MPV 8.7, Immature Gran % (Auto) 0.400, Neut % (Auto) 80.1 H, Lymph % (Auto) 14.7 L, [place] % (Auto) 3.5, Eos % (Auto) 1.1, Baso % (Auto) 0.2, Absolute Neuts (auto) 16.2 H, Absolute Lymphs (auto) 2.98, Nucleated RBC % 0 03/11/21 23:40: Urine Opiates Screen POSITIVE H, Urine Methadone Screen NEGATIVE, Ur Barbiturates Screen NEGATIVE, Ur Phencyclidine Scrn NEGATIVE, Ur Amphetamines Screen NEGATIVE, U Methamphetamin-MDMA NEGATIVE, U Benzodiazepines Scrn POSITIVE H, Urine Cocaine Screen NEGATIVE, U Cannabinoids Screen NEGATIVE, Ur Drug Screen Comment 03/12/21 01:00: Troponin I [place] Sens [id number] H* 03/12/21 01:00: Phosphorus 3.3 03/12/21 05:00: Sodium 138, Potassium 3.5, Chloride 108 H, Carbon Dioxide 22.0, Anion Gap 8, BUN 8, Creatinine 0.55, Estim Creat Clear Calc 121.47, Est GFR (MDRD) Af Amer 164, Est GFR (MDRD) Non-Af 135, BUN/Creatinine Ratio 14.5, Glucose 104, Calcium 8.0 L, Total Bilirubin 0.70, AST 80 H, ALT 42, Alkaline Phosphatase 75, Total Protein 6.5, Albumin 2.9 L, Globulin 3.6, Albumin/Globulin Ratio 0.8 L, Triglycerides 97, Cholesterol 156, LDL Cholesterol 101, VLDL Cholesterol 19, HDL Cholesterol 36 L, TSH 0.82 03/12/21 05:00: WBC 16.4 H, RBC 4.53, Hgb 12.4, Hct 37.7, MCV 83.2, MCH 27.4, MCHC 32.9, RDW Std Deviation 45.5 H, RDW Coeff of Elke 15.0 H, Plt Count 436, MPV 8.8, Immature Gran % (Auto) 0.400, Neut % (Auto) 80.4 H, Lymph % (Auto) 14.1 L, [place] % (Auto) 4.0, Eos % (Auto) 0.9, Baso % (Auto) 0.2, Absolute Neuts (auto) 13.2 H, Absolute Lymphs (auto) 2.31, Nucleated RBC % 0 Micro: Microbiology 03/11/21 17:30 Nasal Secretion SARS-CoV-2 Antigen (Rapid) - Final Radiography Diagnostic Testing: Radiology Impression Chest X-Ray 03/11/21 14:45 IMPRESSION: Normal x-ray examination of the chest. Electronically Signed: Alberto Padilla MD at 15:00 EST , Service support , Abdomen/Pelvis CT 03/11/21 15:26 IMPRESSION: No evidence of retroperitoneal hematoma. Gallstones. Electronically Signed: Alberto Padilla MD at 16:01 EST , Service support , Physical Exam Const alert, oriented x3 and no apparent distress Nutritional Appearance: obese HEENT normocephalic, head/scalp atraumatic, hearing grossly normal bilaterally, external ears normal and nasal mucous membranes and turbinates normal Teeth and Gingiva: other Other Details: Primarily edentulous Throat: posterior oropharynx normal Eyes PERRL, EOMs intact bilaterally and conjunctivae normal Neck full ROM, no lymphadenopathy, supple and no JVD Chest inspection of chest normal Chest: symmetrical chest wall rise; Negative for crepitus Resp normal respiratory effort and normal air movement Auscultation: clear to auscultation bilaterally and wheezes expiratory wheezes; Negative for rales or rhonchi Cardio regular rate, regular rhythm, S1 normal heart sound, S2 normal heart sound, no murmurs, no rub, no gallops, no clicks and peripheral pulses 2+ throughout GI normal to inspection, nondistended, normoactive bowel sounds, soft to palpation, non-tender and non-distended Extremity normal to inspection and normal capillary refill Skin no rashes or lesions noted Skin Narrative: No significant ecchymosis noted at insertion sites Neuro oriented x3, CN's II-XII intact bilaterally, moves all extremities, no focal motor deficits and no sensory deficits noted Psych mental status grossly normal and thought process normal Charges/Coding Visit Charges Inpatient E&M: 03270 Subs Hosp L2
--- NOTE | 2021-03-12 09:11 | ECHOCS_ITS ---
Reason For Study: STEMI Procedure This was a 2D Doppler, Color Flow transthoracic echocardiogram. Contrast injection was performed. Exam performed portable in ICU/CCU. Left Ventricle Normal left ventricle. The estimated ejection fraction is 35-40 %. Anterior [place] : Hypokinetic. Right Ventricle Normal right ventricle. Normal systolic function. Atria Normal left atrium. Normal right atrium. Mitral Valve The mitral valve is structurally normal. No prolapse or stenosis seen. Mild (1+) mitral valve insufficiency. Tricuspid Valve The tricuspid valve is not well visualized. Unable to estimate RV systolic pressure due to insufficient tricuspid regurgitant envelope. Aortic Valve Normal aortic valve. Pulmonic Valve The pulmonic valve is not well visualized. Great Vessels Normal aortic root. Pericardium/Pleural No pericardial effusion. Medication Diluted definity 5ml given slow IV push to enhance endocardial definition. MMode/2D Measurements & Calculations LVIDd: 4.6 cm IVSd: 0.76 cm Ao root diam: 2.4 cm LVIDs: 3.1 cm LVPWd: 0.72 cm RVDd: 2.6 cm FS: 31.6 % LAV(MOD-bp): 32.3 ml LVAd ap4: 29.5 cm2 SV(MOD-sp4): 34.9 ml LAV(MOD-bp) Indexed: 17.9 ml/m2 LVLd ap4: 7.8 cm LAV(MOD-sp2): 31.8 ml EDV(MOD-sp4): 91.1 ml LAV(MOD-sp4): 29.5 ml EDV(sp4-el): 94.2 ml LVAs ap4: 21.5 cm2 LVLs ap4: 6.9 cm ESV(MOD-sp4): 56.3 ml ESV(sp4-el): 57.0 ml EF(MOD-sp4): 38.3 % EF(sp4-el): 39.5 % SV(sp4-el): 37.2 ml LA A4 area: 12.9 cm2 LA dimension(2D): 2.9 cm RA A4 area: 8.3 cm2 Doppler Measurements & Calculations MV E max den: 54.7 cm/sec Lat Peak E' Den: 7.0 cm/sec Med Peak E' Den: 5.8 cm/sec MV A max den: 62.8 cm/sec E/E' lat: 7.8 E/E' med: 9.4 MV E/A: 0.87 Ao V2 max: 115.6 cm/sec LV V1 max: 88.0 cm/sec PA V2 max: 74.0 cm/sec Ao max P.3 mmHg LV V1 max P.1 mmHg Ao V2 mean: 87.7 cm/sec Ao mean P.3 mmHg Ao V2 VTI: 23.4 cm TR max den: 221.3 cm/sec TR max P.6 mmHg ECHO/Echo Complete W/ Contrast Interpretation Summary The estimated ejection fraction is 35-40 %. Moderate LV systolic function Anteroseptal and apical Hypolinesia Moderate size Apical thrombus contrast echo used and showed Segmental wall motion as described No previous echo for comparison Ordering Physician: Malissa Durbin Referring Physician: Ranjeet Navarro Performed By: Yisel Peguero, DANETTE, RVT
--- NOTE | 2021-03-12 10:00 | EKG12_ITS ---
Test Reason : POST CATH Blood Pressure : / mmHG Vent. Rate : 091 BPM Atrial Rate : 091 BPM P-R Int : 118 ms QRS Dur : 080 ms QT Int : 432 ms P-R-T Axes : 050 046 086 degrees QTc Int : 531 ms Normal sinus rhythm Septal infarct (cited on or before 11-MAR-2021) Prolonged QT Abnormal ECG When compared with ECG of 11-MAR-2021 11:33, Serial changes of evolving Septal infarct Present Confirmed by ANN THOMSON, MILES ([id number]), department editor BRIDGET RM ([id number]) on 03/16/2021 10:04:38 AM Referred By: Joyce Dolan Confirmed By:MILES JUAREZ MD
--- NOTE | 2021-03-12 10:18 | PCM.PN.CARD ---
Subjective Subjective Patient seen and evaluated today in the intensive care unit She was sitting out in a chair comfortable no symptoms of chest pain still having mild discomfort abdominal discomfort Objective Data Vital Signs: Vital Signs Temp Pulse Resp BP Pulse Ox 96.9 F L 83 18 107/64 99 03/12/21 08:00 03/12/21 09:00 03/12/21 09:00 03/12/21 09:00 03/12/21 10:11 Oxygen Delivery Method Room Air Weight: 183 lb 3.266 oz Body Mass Index (BMI) 30.5 Intake & Output: Intake and Output for Last 24 Hours 03/10/21 03/11/21 03/12/21 23:59 23:59 23:59 Intake Total 1367.26 / 1367.26 892.5 / 892.5 Output Total 500 / 800 1200 / 1200 Balance 867.26 / 567.26 -307.5 / -307.5 Lab / Micro Data Result Diagrams: 03/12/21 05:00 03/12/21 05:00 Labs: Laboratory Results - last 24 hr 03/11/21 11:40: WBC 14.1 H, RBC 4.86, Hgb 12.8, Hct 40.1, MCV 82.5, MCH 26.3 L, MCHC 31.9 L, RDW Std Deviation 45.6 H, RDW Coeff of [place]ke 15.1 H, Plt Count 584 H, MPV 8.7, Immature Gran % (Auto) 0.400, Neut % (Auto) 60.6, Lymph % (Auto) 29.9, [place] % (Auto) 5.2, Eos % (Auto) 3.6, Baso % (Auto) 0.3, Absolute Neuts (auto) 8.5 H, Absolute Lymphs (auto) 4.20, Nucleated RBC % 0 03/11/21 11:40: Sodium 139, Potassium 3.5, Chloride 110 H, Carbon Dioxide 22.0, Anion Gap 7, BUN 7, Creatinine 0.84, Estim Creat Clear Calc 79.54, Est GFR (MDRD) Af Amer 100, Est GFR (MDRD) Non-Af 83, BUN/Creatinine Ratio 8.3 L, Glucose 127 H, Calcium 8.9, Troponin I High Sens 784 H* 03/11/21 15:15: Magnesium 1.9, Troponin I High Sens > [id number] H* 03/11/21 15:15: Serum , Qual NEGATIVE 03/11/21 15:15: B-Natriuretic Peptide 76.2 03/11/21 15:15: WBC 17.2 H, RBC 4.74, Hgb 12.6, Hct 39.7, MCV 83.8, MCH 26.6 L, MCHC 31.7 L, RDW Std Deviation 45.7 H, RDW Coeff of Elke 15.1 H, Plt Count 532 H, MPV 8.9, Immature Gran % (Auto) 0.500, Neut % (Auto) 72.5 H, Lymph % (Auto) 21.6, [place] % (Auto) 3.8, Eos % (Auto) 1.4, Baso % (Auto) 0.2, Absolute Neuts (auto) 12.5 H, Absolute Lymphs (auto) 3.70, Nucleated RBC % 0 03/11/21 15:15: Blood Type A POSITIVE, Antibody Screen NEGATIVE, Crossmatch See Detail 03/11/21 16:30: Troponin I High Sens > [id number] H* 03/11/21 16:30: WBC 20.3 H, RBC 4.77, Hgb 13.0, Hct 39.1, MCV 82.0, MCH 27.3, MCHC 33.2, RDW Std Deviation 44.7 H, RDW Coeff of [place]ke 14.8 H, Plt Count 524 H, MPV 8.7, Immature Gran % (Auto) 0.400, Neut % (Auto) 80.1 H, Lymph % (Auto) 14.7 L, [place] % (Auto) 3.5, Eos % (Auto) 1.1, Baso % (Auto) 0.2, Absolute Neuts (auto) 16.2 H, Absolute Lymphs (auto) 2.98, Nucleated RBC % 0 03/11/21 23:40: Urine Opiates Screen POSITIVE H, Urine Methadone Screen NEGATIVE, Ur Barbiturates Screen NEGATIVE, Ur Phencyclidine Scrn NEGATIVE, Ur Amphetamines Screen NEGATIVE, U Methamphetamin-MDMA NEGATIVE, U Benzodiazepines Scrn POSITIVE H, Urine Cocaine Screen NEGATIVE, U Cannabinoids Screen NEGATIVE, Ur Drug Screen Comment 03/12/21 01:00: Troponin I High Sens 16492 H* 03/12/21 01:00: Phosphorus 3.3 03/12/21 05:00: Sodium 138, Potassium 3.5, Chloride 108 H, Carbon Dioxide 22.0, Anion Gap 8, BUN 8, Creatinine 0.55, Estim Creat Clear Calc 121.47, Est GFR (MDRD) Af Amer 164, Est GFR (MDRD) Non-Af 135, BUN/Creatinine Ratio 14.5, Glucose 104, Calcium 8.0 L, Total Bilirubin 0.70, AST 80 H, ALT 42, Alkaline Phosphatase 75, Total Protein 6.5, Albumin 2.9 L, Globulin 3.6, Albumin/Globulin Ratio 0.8 L, Triglycerides 97, Cholesterol 156, LDL Cholesterol 101, VLDL Cholesterol 19, HDL Cholesterol 36 L, TSH 0.82 03/12/21 05:00: WBC 16.4 H, RBC 4.53, Hgb 12.4, Hct 37.7, MCV 83.2, MCH 27.4, MCHC 32.9, RDW Std Deviation 45.5 H, RDW Coeff of Elke 15.0 H, Plt Count 436, MPV 8.8, Immature Gran % (Auto) 0.400, Neut % (Auto) 80.4 H, Lymph % (Auto) 14.1 L, [place] % (Auto) 4.0, Eos % (Auto) 0.9, Baso % (Auto) 0.2, Absolute Neuts (auto) 13.2 H, Absolute Lymphs (auto) 2.31, Nucleated RBC % 0 Micro: Microbiology 03/11/21 17:30 Nasal Secretion SARS-CoV-2 Antigen (Rapid) - Final Cardiology Labs/Tests 03/11/21 11:40: WBC 14.1 H, RBC 4.86, Hgb 12.8, Hct 40.1, MCV 82.5, MCH 26.3 L, MCHC 31.9 L, Plt Count 584 H, MPV 8.7, Immature Gran % (Auto) 0.400, Neut % (Auto) 60.6, Lymph % (Auto) 29.9, [place] % (Auto) 5.2, Eos % (Auto) 3.6, Baso % (Auto) 0.3, Absolute Neuts (auto) 8.5 H, Nucleated RBC % 0 03/11/21 11:40: Sodium 139, Potassium 3.5, Chloride 110 H, Carbon Dioxide 22.0, Anion Gap 7, BUN 7, Creatinine 0.84, Est GFR (MDRD) Af Amer 100, Est GFR (MDRD) Non-Af 83, BUN/Creatinine Ratio 8.3 L, Glucose 127 H, Calcium 8.9 03/11/21 15:15: Magnesium 1.9 03/11/21 15:15: B-Natriuretic Peptide 76.2 03/11/21 15:15: WBC 17.2 H, RBC 4.74, Hgb 12.6, Hct 39.7, MCV 83.8, MCH 26.6 L, MCHC 31.7 L, Plt Count 532 H, MPV 8.9, Immature Gran % (Auto) 0.500, Neut % (Auto) 72.5 H, Lymph % (Auto) 21.6, [place] % (Auto) 3.8, Eos % (Auto) 1.4, Baso % (Auto) 0.2, Absolute Neuts (auto) 12.5 H, Nucleated RBC % 0 03/11/21 16:30: WBC 20.3 H, RBC 4.77, Hgb 13.0, Hct 39.1, MCV 82.0, MCH 27.3, MCHC 33.2, Plt Count 524 H, MPV 8.7, Immature Gran % (Auto) 0.400, Neut % (Auto) 80.1 H, Lymph % (Auto) 14.7 L, [place] % (Auto) 3.5, Eos % (Auto) 1.1, Baso % (Auto) 0.2, Absolute Neuts (auto) 16.2 H, Nucleated RBC % 0 03/12/21 01:00: Phosphorus 3.3 03/12/21 05:00: Sodium 138, Potassium 3.5, Chloride 108 H, Carbon Dioxide 22.0, Anion Gap 8, BUN 8, Creatinine 0.55, Est GFR (MDRD) Af Amer 164, Est GFR (MDRD) Non-Af 135, BUN/Creatinine Ratio 14.5, Glucose 104, Calcium 8.0 L, Total Bilirubin 0.70, Triglycerides 97, Cholesterol 156, LDL Cholesterol 101, VLDL Cholesterol 19, HDL Cholesterol 36 L 03/12/21 05:00: WBC 16.4 H, RBC 4.53, Hgb 12.4, Hct 37.7, MCV 83.2, MCH 27.4, MCHC 32.9, Plt Count 436, MPV 8.8, Immature Gran % (Auto) 0.400, Neut % (Auto) 80.4 H, Lymph % (Auto) 14.1 L, [place] % (Auto) 4.0, Eos % (Auto) 0.9, Baso % (Auto) 0.2, Absolute Neuts (auto) 13.2 H, Nucleated RBC % 0 Rhythm: Normal sinus rhythm EKG: Anteroseptal ST elevation TX/STEMI Radiography Diagnostic Testing: Radiology Impression Chest X-Ray 03/11/21 14:45 IMPRESSION: Normal x-ray examination of the chest. Electronically Signed: Alberto Padilla MD at 15:00 EST , Service support , Abdomen/Pelvis CT 03/11/21 15:26 IMPRESSION: No evidence of retroperitoneal hematoma. Gallstones. Electronically Signed: Alberto Padilla MD at 16:01 EST , Service support , Physical Exam Narrative depot agent showed underlying normal sinus Patient alert orientated x3 Comfortable no symptoms of chest pain reported. Cardiovascular examination; S1-S2 regular normal, no systolic or diastolic murmur, no pericardial rub Chest examination; Clear to auscultation bilateral Examination of the right groin no evidence of hematoma noted. Assessment & Plan Assessment/Plan (1) CAD (coronary artery disease): (2) STEMI (ST elevation myocardial infarction): QUALIFIERS: Involved coronary artery: LAD coronary artery Qualified Code(s): I21.02 - ST elevation (STEMI) myocardial infarction involving left anterior descending coronary artery (3) S/P coronary artery stent placement: PLAN: 30 year-old patient who presented with severe retrosternal chest pain diaphoretic With a diagnosis of STEMI/anteroseptal TX Emergency cardiac catheterization with PCI and stent of the proximal LAD Post intervention patient had hypotension with bradycardia CT abdomen/pelvis no evidence of retroperitoneal hematoma. Hemoglobin remained stable And she had no further episode of chest pain/no post TX angina The rn cardiac rehab and hemodynamically she remained stable today Cardiac care plan recommendations; 1. We will continue on dual antiplatelet therapy with Brilinta and aspirin 2. Okay to transfer to the PCU from cardiac standpoint 3. We will continue cardiac medication with restarting atorvastatin 40 mg, in addition to GORAN inhibitor and beta-mima carvedilol as tolerated. 4. We will continue to monitor and follow-up in PCU
[2021-03-12] MEDS: Aspirin 81 MG TAB.CHEW PO (10:19)
[2021-03-12] MEDS: 0.9% Saline Lock 10 ML Syringe IV (10:19)
[2021-03-12] MEDS: TICAGRELOR 90 MG TABLET PO ×2 (10:19→21:50)
--- NOTE | 2021-03-12 10:26 | PCM.PN.HOSP ---
Subjective Subjective Doing well, there was some concern for retroperitoneal bleed yesterday secondary to hypotension however CTA of the pelvis and legs was negative for retroperitoneal hematoma. She is doing well today, denies any chest pain. Objective Data Objective Data Vital Signs: Vital Signs Temp Pulse Resp BP Pulse Ox 96.9 F L 83 18 107/64 99 03/12/21 08:00 03/12/21 09:00 03/12/21 09:00 03/12/21 09:00 03/12/21 10:11 Oxygen Delivery Method Room Air Weight: 183 lb 3.266 oz Body Mass Index (BMI) 30.5 Intake & Output: Intake and Output for Last 24 Hours 03/11/21 03/12/21 03/13/21 03:59 03:59 03:59 Intake Total 1367.26 / 1367.26 892.5 / 892.5 Output Total 800 / 800 900 / 900 Balance 567.26 / 567.26 -7.5 / -7.5 Lab / Micro Data Result Diagrams: 03/12/21 05:00 03/12/21 05:00 Labs: Laboratory Results - last 24 hr 03/11/21 11:40: WBC 14.1 H, RBC 4.86, Hgb 12.8, Hct 40.1, MCV 82.5, MCH 26.3 L, MCHC 31.9 L, RDW Std Deviation 45.6 H, RDW Coeff of Elke 15.1 H, Plt Count 584 H, MPV 8.7, Immature Gran % (Auto) 0.400, Neut % (Auto) 60.6, Lymph % (Auto) 29.9, [place] % (Auto) 5.2, Eos % (Auto) 3.6, Baso % (Auto) 0.3, Absolute Neuts (auto) 8.5 H, Absolute Lymphs (auto) 4.20, Nucleated RBC % 0 03/11/21 11:40: Sodium 139, Potassium 3.5, Chloride 110 H, Carbon Dioxide 22.0, Anion Gap 7, BUN 7, Creatinine 0.84, Estim Creat Clear Calc 79.54, Est GFR (MDRD) Af Amer 100, Est GFR (MDRD) Non-Af 83, BUN/Creatinine Ratio 8.3 L, Glucose 127 H, Calcium 8.9, Troponin I High Sens 784 H* 03/11/21 15:15: Magnesium 1.9, Troponin I High Sens > 13167 H* 03/11/21 15:15: Serum , Qual NEGATIVE 03/11/21 15:15: B-Natriuretic Peptide 76.2 03/11/21 15:15: WBC 17.2 H, RBC 4.74, Hgb 12.6, Hct 39.7, MCV 83.8, MCH 26.6 L, MCHC 31.7 L, RDW Std Deviation 45.7 H, RDW Coeff of Elke 15.1 H, Plt Count 532 H, MPV 8.9, Immature Gran % (Auto) 0.500, Neut % (Auto) 72.5 H, Lymph % (Auto) 21.6, [place] % (Auto) 3.8, Eos % (Auto) 1.4, Baso % (Auto) 0.2, Absolute Neuts (auto) 12.5 H, Absolute Lymphs (auto) 3.70, Nucleated RBC % 0 03/11/21 15:15: Blood Type A POSITIVE, Antibody Screen NEGATIVE, Crossmatch See Detail 03/11/21 16:30: Troponin I High Sens > [id number] H* 03/11/21 16:30: WBC 20.3 H, RBC 4.77, Hgb 13.0, Hct 39.1, MCV 82.0, MCH 27.3, MCHC 33.2, RDW Std Deviation 44.7 H, RDW Coeff of Elke 14.8 H, Plt Count 524 H, MPV 8.7, Immature Gran % (Auto) 0.400, Neut % (Auto) 80.1 H, Lymph % (Auto) 14.7 L, [place] % (Auto) 3.5, Eos % (Auto) 1.1, Baso % (Auto) 0.2, Absolute Neuts (auto) 16.2 H, Absolute Lymphs (auto) 2.98, Nucleated RBC % 0 03/11/21 23:40: Urine Opiates Screen POSITIVE H, Urine Methadone Screen NEGATIVE, Ur Barbiturates Screen NEGATIVE, Ur Phencyclidine Scrn NEGATIVE, Ur Amphetamines Screen NEGATIVE, U Methamphetamin-MDMA NEGATIVE, U Benzodiazepines Scrn POSITIVE H, Urine Cocaine Screen NEGATIVE, U Cannabinoids Screen NEGATIVE, Ur Drug Screen Comment 03/12/21 01:00: Troponin I High Sens 70710 H* 03/12/21 01:00: Phosphorus 3.3 03/12/21 05:00: Sodium 138, Potassium 3.5, Chloride 108 H, Carbon Dioxide 22.0, Anion Gap 8, BUN 8, Creatinine 0.55, Estim Creat Clear Calc 121.47, Est GFR (MDRD) Af Amer 164, Est GFR (MDRD) Non-Af 135, BUN/Creatinine Ratio 14.5, Glucose 104, Calcium 8.0 L, Total Bilirubin 0.70, AST 80 H, ALT 42, Alkaline Phosphatase 75, Total Protein 6.5, Albumin 2.9 L, Globulin 3.6, Albumin/Globulin Ratio 0.8 L, Triglycerides 97, Cholesterol 156, LDL Cholesterol 101, VLDL Cholesterol 19, HDL Cholesterol 36 L, TSH 0.82 03/12/21 05:00: WBC 16.4 H, RBC 4.53, Hgb 12.4, Hct 37.7, MCV 83.2, MCH 27.4, MCHC 32.9, RDW Std Deviation 45.5 H, RDW Coeff of Elke 15.0 H, Plt Count 436, MPV 8.8, Immature Gran % (Auto) 0.400, Neut % (Auto) 80.4 H, Lymph % (Auto) 14.1 L, [place] % (Auto) 4.0, Eos % (Auto) 0.9, Baso % (Auto) 0.2, Absolute Neuts (auto) 13.2 H, Absolute Lymphs (auto) 2.31, Nucleated RBC % 0 Micro: Microbiology 03/11/21 17:30 Nasal Secretion SARS-CoV-2 Antigen (Rapid) - Final Radiography Diagnostic Testing: Radiology Impression Chest X-Ray 03/11/21 14:45 IMPRESSION: Normal x-ray examination of the chest. Electronically Signed: Alberto Padilla MD at 15:00 EST , Service support , Abdomen/Pelvis CT 03/11/21 15:26 IMPRESSION: No evidence of retroperitoneal hematoma. Gallstones. Electronically Signed: Alberto Padilla MD at 16:01 EST , Service support , Physical Exam Const alert, oriented x3 and no apparent distress General Appearance: cooperative HEENT normocephalic and moist oral mucous membranes Eyes PERRL, EOMs intact bilaterally and conjunctivae normal Neck supple and no JVD Resp normal respiratory effort, no retractions, no use of accessory muscles and clear to auscultation bilaterally Auscultation: Negative for crackles, rales, rhonchi or wheezes Cardio regular rate, regular rhythm, S1 normal heart sound, S2 normal heart sound and no murmurs GI soft to palpation, non-tender and non-distended; Negative for hepatosplenomegaly Extremity no clubbing, cyanosis or edema Skin no rashes or lesions noted Neuro no focal motor deficits and no sensory deficits noted Psych affect normal Appearance: appropriate Assessment & Plan Assessment/Plan (1) STEMI (ST elevation myocardial infarction): QUALIFIERS: Involved coronary artery: LAD coronary artery Qualified Code(s): I21.02 - ST elevation (STEMI) myocardial infarction involving left anterior descending coronary artery (2) CAD (coronary artery disease): (3) S/P coronary artery stent placement: PLAN: 1. Anterior wall STEMI with cardiogenic shock/tobacco abuse ? Stimulant was called and she had a stent placed in the mid LAD ? Post procedure she had severe bradycardia and hypotension concern was for retroperitoneal hematoma this was negative, this was likely either vasovagal or a response to her systemic. Doing well now ? No longer requiring any pressor support shock has resolved ? She did receive 1 unit of blood no further transfusions are necessary ? Appreciate cardiology's assistance ? We will transfer to PCU ? Discussed with her the importance of antiplatelets for a year she expressed on her doing ? Counseled on cessation 2. Leukocytosis ? Afebrile, could be a stress response to the STEMI as well as the procedure ? We will continue to monitor DVT: SCDs Charges/Coding Visit Charges Inpatient E&M: 47728 Subs Hosp L2
[2021-03-12] MEDS: APIXABAN 5 MG TABLET PO ×2 (13:08→21:50)
--- NOTE | 2021-03-12 13:40 | CASEMGMT ---
BARBARA SOLIS SPRAYER OPERATOR CM to room to meet with patient for initial transition planning/care coordination assessment. BARBARA SOLIS introduced self and role at [facility]. Pt voices understanding and consents to assessment at this time. Pt resting in bed in no distress at this time. Pt is A/O at this time and answers all questions appropriately. Care providers, pharmacy, and demographics verified/updated at this time. PCP: Pt was seeing Dr Bernard, but has missed some appts and has not seen him for about a year. She confirms she would like to go back to him. BARBARA SOLIS placed call to Dr Bernard's office. Per school attendance secretary, pt has had a couple of appt no-shows and she is not sure if Dr Bernard will be able to see pt. She requests for pt to contact Dr Bernard's office after she is discharged to inquire if he is able to see her or not. Pt made aware of this. Pt provided w/list of local PCP's to refer to if Dr Bernard is not able to see her. She voices appreciation. Specialists: None. She plans to f/u @ [facility]. Preferred Pharmacy: [facility]. Pt made aware she will be going home on both Brilinta and Eliquis. LAURITA Matt, was in to see pt and provided education on these medications with pt. BARBARA SOLIS discussed 30-day savings card and that these will be applied by [facility] pharmacy, if there is any co-pay. Pt denies having any questions at this time. Insurance: [employer] Prescription Benefit: Yes Living Will/HPOA: [facility] does not have LW or HCPOA . Interested in more information but [facility] does not want to talk with SW at this time to complete paperwork. Provided information on advanced directives and given Social Service rac card with number to call if chooses in the future to utilize [facility] social work for advanced directive completion. Educated patient that, if patient so chooses, can come back to [facility] and meet with a SW as an outpatient to complete health care advanced directives. Patient expresses understanding. LNOK: 2 cousins--both listed on demographics. Pt's parents are . She also has 2 sisters. Pt's 2 sisters live in [place], but pt has not seen them for about a year. She states they just came to town to see her when they found out she had a heart attack. She states is glad they came now but voices frustration that it has been so long. Pt also shared w/RN CM about loss of a full-term baby (son) about a year ago and that her dad had passed w/in 3 days of losing her son. Pt states with all the loss she has had and now w/having a heart attack that it has been a lot to process. Living Arrangements: Lives w/cousins Anabelle and Ramona (both listed on demographics), pt's 2-yr-old dtr, dtr's father (temporarily), and cousin's . Pt independent @ home. Transportation: Pt does not drive. Her cousin will take her home @ d/c. DME: Denies using any DME and denies needs. HHC/SNF: No hx of either. Pt wishes to return home and states has no concerns with going home at time of discharge. Pt voices no further concerns/needs at this time. Advised pt to ask for CM if any further questions/concerns/needs arise. Voices understanding. PLAN: Home Janet CONCEPCION RN, CM
--- NOTE | 2021-03-12 16:22 | CASEMGMT ---
Social Work SW met with pt and introduced role of SW. Pt is sitting in bed and open to talking with SW. Pt denies any previous mental health concerns. Pt openly able to discuss difficulties in the past. Pt and SW discussed ways to cope with past events and with current medical situation. Pt states that she does not see a counselor but does enjoy journaling and art and that these are ways she deals with life events. Pt states she lives at home with her boyfriend, her cousin and two year old daughter. Pt stating that family is very supportive and pt reports feeling safe at home. Pt also able to sight spending time with her dgt as something to look forward to. Pt did accept list of counselors but denies need for SW to set up appointment as she does not feel it is needed at this time. ROSE Loco
[2021-03-12] MEDS: Atorvastatin Calcium 40 MG Tablet PO (21:50)
[2021-03-13] VITALS (7 sets, daily range): BP systolic 91–98; BP diastolic 58–63; PULSE 71–80; RESP 15–16; TEMP 36.5–36.6; O2SAT 96–100
[2021-03-13 06:14] LABS: Absolute Lymphocyte Count 2.44 X10^3/uL (0.83-4.51); Absolute Neutrophil Count 8.6 X10^3/uL (2.0-7.7); Basophil# 0.03 X10^3/uL; Basophil% 0.3 % (0-1); Eosinophil# 0.34 X10^3/uL; Eosinophils% 2.8 % (0-5); Hematocrit 37.7 % (37-47); Hemoglobin 12.2 g/dL (12.0-15.0); Lymphocyte # 2.44 X10^3/ul (0.83-4.51); Lymphocyte % 20.3 % (19-41); Mean Corp Hgb Conc 32.4 g/dL (32-36); Mean Corpuscular Hgb 26.9 pg (27.0-32.0); NRBC Flagged by Analyzer 0 % (0-5); Neutrophil # 8.56 X10^3/uL (2.7-7.7); Neutrophil % 71.3 % (47-70); Platelet Count 440 K/mm3 (150-450); RBC Distribution Width CV 14.8 % (11.6-14.6); RBC Distribution Width SD 44.8 fl (35.1-43.9); Red Blood Count 4.54 M/mm3 (4.2-5.4)
[2021-03-13 06:39] LABS: Anion Gap 6 (5-15); BUN 9 mg/dL (7-18); BUN/Creat Ratio 12.8 RATIO (10-20); Calcium,Total 8.7 mg/dL (8.5-10.1); Chloride 108 mmol/L (98-107); EST Glomerular Filtration Rate 102 mL/min (>60); Est Glom Filt Rate - Afr Amer 123 mL/min (>60); Estimated Creatinine Clearance 95.44 ml/min; Glucose 103 mg/dL (74-106); Potassium 3.5 mmol/L (3.5-5.1); Sodium Level 139 mmol/L (136-145)
[2021-03-13] MEDS: TICAGRELOR 90 MG TABLET PO (09:55)
[2021-03-13] MEDS: Aspirin 81 MG TAB.CHEW PO (09:55)
[2021-03-13] MEDS: APIXABAN 5 MG TABLET PO (09:55)
--- NOTE | 2021-03-13 13:02 | PCM.PN.CARD ---
Subjective Subjective Patient seen and evaluated today along with the nursing staff She is comfortable sitting out in the chair and she was walking today with the assistance of the nursing staff No symptoms of chest pain reported Abdominal pain resolved Objective Data Vital Signs: Vital Signs Temp Pulse Resp BP Pulse Ox 97.8 F 80 16 92/62 99 03/13/21 09:51 03/13/21 09:51 03/13/21 09:51 03/13/21 09:51 03/13/21 09:51 Oxygen Delivery Method Room Air Weight: 179 lb 14.355 oz Body Mass Index (BMI) 30.5 Intake & Output: Intake and Output for Last 24 Hours 03/11/21 03/12/21 03/13/21 23:59 23:59 23:59 Intake Total 1367.26 / 1367.26 1292.5 / 1412.5 720 / 720 Output Total 500 / 800 1200 / 1200 Balance 867.26 / 567.26 92.5 / 212.5 720 / 720 Lab / Micro Data Result Diagrams: 03/13/21 05:14 03/13/21 05:14 Labs: Laboratory Results - last 24 hr 03/13/21 05:14: WBC 12.0 H, RBC 4.54, Hgb 12.2, Hct 37.7, MCV 83.0, MCH 26.9 L, MCHC 32.4, RDW Std Deviation 44.8 H, RDW Coeff of Elke 14.8 H, Plt Count 440, MPV 9.0, Immature Gran % (Auto) 0.300, Neut % (Auto) 71.3 H, Lymph % (Auto) 20.3, [place] % (Auto) 5.0, Eos % (Auto) 2.8, Baso % (Auto) 0.3, Absolute Neuts (auto) 8.6 H, Absolute Lymphs (auto) 2.44, Nucleated RBC % 0 03/13/21 05:14: Sodium 139, Potassium 3.5, Chloride 108 H, Carbon Dioxide 25.0, Anion Gap 6, BUN 9, Creatinine 0.70, Estim Creat Clear Calc 95.44, Est GFR (MDRD) Af Amer 123, Est GFR (MDRD) Non-Af 102, BUN/Creatinine Ratio 12.8, Glucose 103, Calcium 8.7 Cardiology Labs/Tests 03/13/21 05:14: WBC 12.0 H, RBC 4.54, Hgb 12.2, Hct 37.7, MCV 83.0, MCH 26.9 L, MCHC 32.4, Plt Count 440, MPV 9.0, Immature Gran % (Auto) 0.300, Neut % (Auto) 71.3 H, Lymph % (Auto) 20.3, [place] % (Auto) 5.0, Eos % (Auto) 2.8, Baso % (Auto) 0.3, Absolute Neuts (auto) 8.6 H, Nucleated RBC % 0 03/13/21 05:14: Sodium 139, Potassium 3.5, Chloride 108 H, Carbon Dioxide 25.0, Anion Gap 6, BUN 9, Creatinine 0.70, Est GFR (MDRD) Af Amer 123, Est GFR (MDRD) Non-Af 102, BUN/Creatinine Ratio 12.8, Glucose 103, Calcium 8.7 Rhythm: Normal sinus rhythm EKG: Initial EKG showed evidence of ST elevation WI/anteroseptal Post PCI EKG showed evidence of recent anteroseptal WI. ECHO: Anteroseptal and hypokinesia Moderate LV systolic dysfunction ejection fraction in the range of 35-40% Moderate size apical thrombus Radiography Diagnostic Testing: Radiology Impression Echocardiogram 03/12/21 09:11 Interpretation Summary The estimated ejection fraction is 35-40 %. Moderate LV systolic function Anteroseptal and apical Hypolinesia Moderate size Apical thrombus contrast echo used and showed Segmental wall motion as described No previous echo for comparison Ordering Physician: Malissa Durbin Referring Physician: Ranjeet Navarro Performed By: Yisel Peguero, RDCS, RVT Physical Exam Narrative Patient alert and orientated x3 Has no symptoms of chest pain or abdominal pain Cardiovascular semination; S1-S2 is regular No systolic or diastolic murmur No pericardial rub. Or gallop Chest examination; clear to auscultation bilateral Examination abdomen soft not distended Right common femoral artery area/right groin no hematoma Pedal pulses palpable bilateral Assessment & Plan Assessment/Plan (1) CAD (coronary artery disease): (2) STEMI (ST elevation myocardial infarction): QUALIFIERS: Involved coronary artery: LAD coronary artery Qualified Code(s): I21.02 - ST elevation (STEMI) myocardial infarction involving left anterior descending coronary artery (3) S/P coronary artery stent placement: PLAN: 28-year-old patient who presented with sudden onset chest pain with the clinical diagnosis of a STEMI/anteroseptal WI Underwent successful PCI of the proximal LAD with placement of drug-eluting stent She has large thrombus involving the ostium and the proximal LAD. Postprocedure she had episode of hypotension with bradycardia however there was no chest pain and she was evaluated with a repeat blood test with CBC which she remains stable normal, CT abdomen and pelvis no evidence of retroperitoneal hematoma Subsequent evaluation by echocardiogram showed evidence of anteroseptal and apical hypokinesia with moderate LV systolic dysfunction with ejection fraction in the range of 35 to 40%, apical moderate-sized thrombus noted Cardiac care plan recommendations; 1. I discussed with the patient and the nursing staff today the cardiac medication which include 6 medication DAPT/dual antiplatelet therapy with Brilinta 90 mg twice daily/low-dose aspirin 81 mg once a day 2. Eliquis 5 mg twice daily 3. Carvedilol as tolerated 4. GORAN inhibitor with lisinopril 6. Atorvastatin Patient also advised cessation for smoking Patient will be scheduled for phase 1 cardiac rehab program at [facility]/cardiac team 7. Patient to follow-up with the cardiology team for continuation of cardiac care and for follow-up on the apical thrombus and discuss duration of the anticoagulation/to be seen in 2 weeks
[2021-03-13 13:32] LABS: Mucous, Urine 0 SEEN /hpf (<or=2+)
[2021-03-13 13:34] LABS: Color, Urine Yellow (Yellow); Glucose, Dipstick Normal (Normal); Ketone-Dipstick Negative (Negative); Leukocyte Esterase-Dipstick 500 /ul (Negative); Nitrite-Dipstick Negative (Negative); Occult Blood-Urine 10 /ul (Negative); Protein-Dipstick 15 mg/dl (Negative); Specific Gravity, Urine 1.005 (1.002-1.030); Urine Bilirubin Dipstick Negative (Negative); Urine Clarity Sl. Cloudy (Clear); Urine Urobilinogen 1 mg/dl (Normal)
[2021-03-13 13:41] LABS: Bacteria 2+ /hpf (None Seen); Red Blood Cells-Urine 0-5 SEEN /hpf (0-5); Squamous Epithelial Cells - UA 5-10 SEEN /hpf (5-10); White Blood Cells 10-25 SEEN /hpf (0-5); Yeast-Urine RARE /hpf (None Seen)
--- NOTE | 2021-03-13 13:50 | PCM.DC ---
Discharge Instructions Diet Discharge Diet: Low fat / Low cholesterol Activity Discharge Activity: Return to Normal Activity Dressing / Incision Call your doctor if you observe: Fever of 101 or Higher, Shortness of breath, Dizziness, Fainting spells, Swelling in the ankles, Chest pain and Increased palpitations (irregular heartbeat) Follow Up Care Test Results: Test results from this visit will be discussed in further detail at your follow-up appointment, if applicable. Discharge Plan Admission Admit Date/Time: 03/11/21 14:11 Attending Provider: Luis Miguel Juan Primary Care Provider: Ranjeet Bernard Consulting Providers: Wesley Morrissey ; Harshal Massey ; Anabelle Tyler NP Discharge Orders/Prescriptions Prescriptions: New atorvastatin 40 mg Tablet 40 mg PO QHS Qty: 30 RF: 0 aspirin 81 mg Tablet,Chewable 81 tab PO DAILY Qty: 30 RF: 0 Brilinta 90 mg Tablet 90 mg PO BID Qty: 60 RF: 0 Eliquis 5 mg Tablet 5 mg PO BID Qty: 60 RF: 0 ciprofloxacin HCl [Cipro] 500 mg tablet 500 mg PO BID Qty: 10 RF: 0 Referrals / Follow Up: Markos Garcia MD [STAFF PHYSICIAN] - Within 2 Weeks Ranjeet Bernard MD [Primary Care Provider] - Within 1 Week Disposition Disposition (needs filled in before D/C Order can be placed): Home, Self Care
--- NOTE | 2021-03-13 14:00 | DS.PCM_ITS ---
Providers Date of Admission: 03/11/21 Primary Care Physician: Dr. Ranjeet Bernard MD Consultations 03/11/21 17:02 Consult: [facility] / Pulmonary Medicine Routine Consulting Provider: [facility] Reason for Consult: hypotension, required IV levophed EMERGENT Consult: No MD Notified: Yes Date Notified: 03/11/21 Time Notified: 15:00 Method of Notification: Verbal Reason For Visit: STEMI Diagnosis Discharge Diagnosis (1) CAD (coronary artery disease): Status: Deleted Code(s): I25.10 - Atherosclerotic heart disease of [place] coronary artery without angina pectoris (2) STEMI (ST elevation myocardial infarction): Status: Deleted Code(s): I21.3 - ST elevation (STEMI) myocardial infarction of unspecified site Qualifiers: Involved coronary artery: LAD coronary artery Qualified Code(s): I21.02 - ST elevation (STEMI) myocardial infarction involving left anterior descending coronary artery (3) S/P coronary artery stent placement: Status: Deleted Code(s): Z95.5 - Presence of coronary angioplasty implant and graft Medications at Discharge Home Medications apixaban [Eliquis] 5 mg PO BID #60 tab 03/13/21 aspirin 81 tab PO DAILY #30 tab 03/13/21 atorvastatin 40 mg PO QHS #30 tab 03/13/21 ciprofloxacin HCl [Cipro] 500 mg PO BID #10 tab 03/13/21 ticagrelor [Brilinta] 90 mg PO BID #60 tab 03/13/21 Hospital Course Operations None Procedures 2-D Echocardiogram and Cardiac catheterization Summary of Care Provided Minutes Spent on Discharge: 43 Hospital Course: Per HPI: YURI DAVIS, is a 30 F came to ER with chest pain mainly mild discomfort when she woke up. She took Advil and went to bed but pain did not relieved and woke up with substernal with radiation to right shoulder and back, felt like pressure or heaviness 10 out of 10 intensity. She had associated mild shortness of breath. Twelve-lead EKG shows ST elevation in V2 V3 V4 and V5 with slight elevation in V6, 1 and aVL. Reciprocal changes in lead III and aVF with depression. STEMI was called and patient taken to Weight Count Operator immediately. Right radial artery therefore was accessed through right common femoral artery. Large thrombus involving ostial and occluded proximal LAD was found with ERON 0 flow. Patient had 2 stents and balloon dilatation placed ERON flow from 0-3. EF Patient had perclosure device placed. EF 40% with anteroapical hypokinesia. No MR. No systolic gradient of her aortic valve. Patient was brought to ICU and was admitted. Soon after that patient developed hypotension and bradycardia, heart rate down to 30s and blood pressure systolic in 60s. I went to see the patient. IV fluid resuscitation bolus, Levophed drip was started. Business Strategy Manager was compliance assistant was called stat. The patient pain over right groin, perineal region right lumbar area. There is suspicion of a retroperitoneal bleed. Patient looked pale. The compliance assistant came immediately. Right femoral artery pressure . Patient complained of pain. Business Strategy Manager ordered 6 units of of PRBC transfusion with 2 units stat, vascular surgery consult, face burler consult, CT abdomen patient is hemodynamically stable. Patient went for CT abdomen when heart rate and blood pressure was notably stable. Family history: Father had coronary artery reviewed ICD in at the age of 68. Hospital Course: 1. Anterior wall STEMI with cardiogenic shock/apical thrombus/tobacco abuse ? Stimulant was called and she had a stent placed in the mid LAD ? Post procedure she had severe bradycardia and hypotension concern was for retroperitoneal hematoma this was negative, this was likely either vasovagal or a response to her systemic. Doing well now ? No longer requiring any pressor support shock has resolved ? She did receive 1 unit of blood no further transfusions are necessary ? Appreciate cardiology's assistance ? We will transfer to PCU ? Discussed with her the importance of antiplatelets for a year she expressed on her doing ? Counseled on cessation 03/13/2021: Feels much better today, is having some burning with urination, UA does show a UTI therefore will obtain a urine culture and continue with Cipro twice daily for 5 days. She will be discharged on Eliquis for her apical thrombus as well as aspirin and Brilinta for her drug-eluting stent in the mid LAD. She will also need to be on Lipitor and we have encouraged tobacco cessation. She also needs to be on a beta-mima and lisinopril however given her recent cardiogenic shock secondary to her STEMI and the need for pressors, her blood pressure is still borderline in the 90s therefore hopefully on follow- up with cardiology in 2weeks her blood pressure will be stable enough to tolerate these two medications. I discussed with her the plan for discharge and she expressed understanding of the risk benefits of going home and would like to go home today. 2. UTI ? Initially had a leukocytosis up to 20 but did resolve on its own prior to initiation of antibiotics however she started to complain of burning with urination today ? UA consistent with UTI therefore will obtain a urine culture and discharge on Cipro 500 mg p.o. twice daily Physical Exam Narrative Const alert, oriented x3 and no apparent distress General Appearance: cooperative HEENT normocephalic and moist oral mucous membranes Eyes PERRL, EOMs intact bilaterally and conjunctivae normal Neck supple and no JVD Resp normal respiratory effort, no retractions, no use of accessory muscles and clear to auscultation bilaterally Auscultation: Negative for crackles, rales, rhonchi or wheezes Cardio regular rate, regular rhythm, S1 normal heart sound, S2 normal heart sound and no murmurs GI soft to palpation, non-tender and non-distended; Negative for hepatosplenomegaly Extremity no clubbing, cyanosis or edema Skin no rashes or lesions noted Neuro no focal motor deficits and no sensory deficits noted Psych affect normal Appearance: appropriate Weight / BMI Weight Weight: 179 lb 14.355 oz Body Mass Index (BMI) 30.5 ABG / Lab / Microbiology Data Result Diagrams: 03/13/21 05:14 03/13/21 05:14 Laboratory: Laboratory Results - last 24 hr 03/13/21 05:14: WBC 12.0 H, RBC 4.54, Hgb 12.2, Hct 37.7, MCV 83.0, MCH 26.9 L, MCHC 32.4, RDW Std Deviation 44.8 H, RDW Coeff of [place] 14.8 H, Plt Count 440, MPV 9.0, Immature Gran % (Auto) 0.300, Neut % (Auto) 71.3 H, Lymph % (Auto) 20.3, [place] % (Auto) 5.0, Eos % (Auto) 2.8, Baso % (Auto) 0.3, Absolute Neuts (auto) 8.6 H, Absolute Lymphs (auto) 2.44, Nucleated RBC % 0 03/13/21 05:14: Sodium 139, Potassium 3.5, Chloride 108 H, Carbon Dioxide 25.0, Anion Gap 6, BUN 9, Creatinine 0.70, Estim Creat Clear Calc 95.44, Est GFR (MDRD) Af Amer 123, Est GFR (MDRD) Non-Af 102, BUN/Creatinine Ratio 12.8, G lucose 103, Calcium 8.7 03/13/21 13:25: Urine Color Yellow, Urine Clarity Sl. Cloudy, Urine pH 7.0, Ur Specific [place] 1.005, Urine Protein 15 H, Urine Glucose (UA) Normal, Urine Ketones Negative, Urine Occult Blood 10 H, Urine Nitrite Negative, Urine Bilirubin Negative, Urine Urobilinogen 1 H, Ur Leukocyte Esterase 500 H, Urine RBC 0-5 SEEN, Urine WBC 10-25 SEEN, Ur Squamous Epith Cells 5-10 SEEN, Urine Bacteria 2+, Urine Mucus 0 SEEN, Urine Yeast RARE Microbiology: Microbiology 03/11/21 17:30 Nasal Secretion SARS-CoV-2 Antigen (Rapid) - Final Radiography Diagnostic Testing: Radiology Impression Echocardiogram 03/12/21 09:11 Interpretation Summary The estimated ejection fraction is 35-40 %. Moderate LV systolic function Anteroseptal and apical Hypolinesia Moderate size Apical thrombus contrast echo used and showed Segmental wall motion as described No previous echo for comparison Ordering Physician: Malissa Durbin Referring Physician: Ranjeet Bernard Performed By: Yisel Peguero, ROCKYCS, RVT D/C Instructions Discharge Diet: Low fat / Low cholesterol Call your doctor if you observe: Fever of 101 or Higher, Shortness of breath, D izziness, Fainting spells, Swelling in the ankles, Chest pain and Increased palpitations (irregular heartbeat) Meaningful Use Info Meaningful Use Diagnoses (Choose all that apply): None applicable Discharge Plan Admission Admit Date/Time: 03/11/21 14:11 Attending Provider: Luis Miguel Juan Primary Care Provider: Ranjeet Bernard Consulting Providers: Wesley Morrissey ; Harshal Massey ; Anabelle Tyler [employer] Discharge Orders/Prescriptions Prescriptions: New atorvastatin 40 mg Tablet 40 mg PO QHS Qty: 30 RF: 0 aspirin 81 mg Tablet,Chewable 81 tab PO DAILY Qty: 30 RF: 0 Brilinta 90 mg Tablet 90 mg PO BID Qty: 60 RF: 0 Eliquis 5 mg Tablet 5 mg PO BID Qty: 60 RF: 0 ciprofloxacin HCl [Cipro] 500 mg tablet 500 mg PO BID Qty: 10 RF: 0 Referrals / Follow Up: Markos Garcia MD [STAFF PHYSICIAN] - Within 2 Weeks Ranjeet Bernard MD [Primary Care Provider] - Within 1 Week Disposition Disposition (needs filled in before D/C Order can be placed): Home, Self Care Charges/Coding Visit Charges Inpatient E&M: 35400 Disch Hosp
== END 2021-03-13 14:41 | disposition home or self-care (01) | DRG 174 ==
LOC: ED 11:42 → ICU 13:27 → PCU 03-12 15:45
PROVIDERS: Admitting Provider Internal Medicine; Emergency Provider Student in an Organized Health Care Education/Training Program; PCP Family Medicine; Referring Provider Internal Medicine Interventional Cardiology; Visit Provider Family Medicine
DX: I21.02 ST elevation (STEMI) myocardial infarction involving left anterior descending coronary artery (principal); R57.0 Cardiogenic shock; J81.1 Chronic pulmonary edema; E78.5 Hyperlipidemia, unspecified; K80.20 Calculus of gallbladder without cholecystitis without obstruction; Z79.02 Long term (current) use of antithrombotics/antiplatelets; Z87.891 Personal history of nicotine dependence; Z79.82 Long term (current) use of aspirin; Z82.49 Family history of ischemic heart disease and other diseases of the circulatory system; Z23 Encounter for immunization
CPT/HCPCS: 36415; 71045; 74176; 80048; 80053; 80061; 80307; 81001; 83735; 83880; 84100; 84443; 84484; 84703; 85025; 86850; 86900; 86901; 86920; 86922; 87086; 87088; 87186; 87426; 92941; 93005; 93306; 93458; 99152; 99153; 99251; 99284; 99406; C1874; J7030; J7050; P9016; Q9957; Q9967; 90686; A4216; C1725; C1760; C1769; C1887; C1894; C8929; C9606; G0463; J1327; J1940; J2405

== ENCOUNTER 2021-04-28 14:52 | Outpatient (CLI) | payer MEDICAID, SELFPAY ==
--- NOTE | 2021-04-28 13:48 | PCM.CR.ITP ---
Diagnosis - General Information Admitting Diagnosis: STEMI, PCI w/coronary stenting Secondary Diagnosis: Atherosclerotic coronary artery disease without angina, cardiogenic shock, thrombosis of atrium-auricular appendage, abnormalfindings on fdiagnostic imageing of heart, ischemic cardiomyopathy, tobaaco use. Personal Learning Style:: Audio/Visual, Written Barriers to Learning: No Barriers Stage of change r/t lifestyle modifications:: Contemplation Gave educational material for:: Treating Heart Disease, Emotions & Heart Disease, Stress Management & Relaxation, Sleep Disorders & Heart Disease, How The Heart Works, What it means to have Heart Disease, How Coronary Artery Disease is Diagnosed, Heart Procedures, What Heart Medications Do, Risk Factors & Modifications, Living an Active Life, Nutrition - Education/Goals Individual Counseling: Initial Assessment: Nicotine/Smoking, Abnormal Cholesterol Levels, High Blood Pressure, Overweight/Obesity Cardiac Rehabilitation Goals: 1. Maintain the individual as the primary focus of care. 2. To improve the patient's quality of life. 3. Identification of cardiac risk factors and provide cardiac risk factor management. 4. Enhance the psychosocial status of the patient. 5. Reconditioning enough to allow the patient to resume customary activities. 6. Control symptoms of cardiac disease Personal Goals: Initial Assessment: Quit smoking (participate in smoking cessation, Improve energy level, Participate in home exercise program, Improve knowledge of cardiac disease, Improve muscle strength and endurance, Control risk factors (learn risk factor modification) Scale for measuring improvement of personal goals: Enter appropriate number in Comments. 2 = Unchanged. 3 = Slightly Better. 4 = Moderate Improvement. 5 = Met my Goal - Diagnosis & Disease Process Outcomes/Goals: Pt IDs own risk factors & lifestyle modifications by Session 10, Verbalizes symptoms of angina & response by session 3., Pt independently manages Plan/Interventions: Assist Pt to ID & engage in lifestyle modification to reduce CVD risk, Instruct on individual risk factors, Review symptoms of angina & emergency actions, Review secondary diagnosis & identify educational needs. - Safety Referral to Physical Therapy: No Referral to [facility] Case Management: No Fall Risk Assessed:: Yes Assistive Devices:: None Exercise - Initial Assessment - Visit Date of Eval: 04/28/21 Session #:: 0 - pre-cardiac rehab evaluation Mets: Pre-: >7 METS for 30 minutes by discharge - Physician Prescribed Exercise Modalities: Treadmill, Rower, Airdyne, NuStep Frequency: 3x/week for 12 weeks [36 sessions] Intensity: 60-80% of age predicted maximum heart rate reserve Current METSs:: 3.0 Target Heart Rate:: 122-159 Resting Blood Pressure: 92/62 EKG Type: sinus rhythm with marked sinus arrhythmia - Outcomes & Goals Goals:: Verbalizes understanding of THR, RPE & goal METS by session 6, Documents in home exercise log/reports 30 min aerobic 5 day/wk by DC, Demonstrates accurate pulse taking by DC - Intervention & Plan Exercise Program Goals: Instruct on personal THR & RPE, Instruct on MET level & personal MET goal, Show patient to take own pulse /validate performance until accurate, Instruct on home exercise - Physical Activity Home Exercise Physical Activity - Home Exercise: Safe Exercise, Warm-up, Self-monitoring, Cool-Down, Home Exercise > 30 min Daily, Sitting Time <3 hours/daily - Outcomes & Goals Outcomes/Goals: Demonstrates correct Warm-up/exercise Cool-Down (S3) if = 2.5 METs, Verbalizes symptoms of exercise intolerance by Session 3 (S3), Demonstrate safe equipment use (S3) & follows exercise prescrition (6) - Intervention & Plan Plan/Intervention: Instruct warm-up & cool-down if exercising at > 2 METs, Instruct on symptoms of exercise intolerance & actions to take, Instruct & monitor on saf, Assess intial functional capacity & safety risk Nutrition - Initial Assessment - Program Goals Nutrition Program Goals: LDL <100 optimal. 100 - 129 Near optimal. 130 - 159 Borderline High. 160 - 189 High. Total Cholesterol <200 desirable. 200 - 239 Borderline High. >/= 240 High. HDL < 40 Low >/=60 High. Triglycerides <150 desirable. <199 optimal. VlDL 5 - 40. HgbA1C <7%. BMI <25 Patient has diagnosis of Hyperlipidemia (ICD E78)?: Yes - Visit Date of Assessment:: 04/28/21 Session #:: 0 - pre-cardiac rehab evaluation - Cholesterol/Lipids Triglycerides (mg/dL): 97 Total Cholesterol (mg/dL): 156 LDL Cholesterol (mg/dL): 101 HDL Cholesterol (mg/dL): 36 Determine presence & major risk factors that modify LDL goal: Cigarette smoking, Hypertension or hypertensive medication Outcomes/Goals: Pt IDs own risk factors & lifestyle modifications by Session 10, Verbalizes symptoms of angina & response by session 3., Pt independently manages Intervention/Plan: Instruct on personal lipid levels & lipid goals/NCEP guidelines, Instruct on cholesterol Referral to dietitian:: Yes - Medical Nutrition Therpy - Diabetes (Other Core Measures) Diabetes Type: Not Applicable - Weight Mgt (Other Care) Not Applicable: No Height: 5 ft 3 in Weight:: 179 lb BMI: 31.6 Diagnosis Overweight/Obesity BMI> 30% ICD-10 E66: Yes Diagnosis High BMI/Morbid Obesity BMI> 35% ICD-10 Z68: No Outcomes/Goals: Pt sets, maintains & shows weight loss goal & trend during rehab Intervention/Plan: Instruct on ideal BMI & set weight loss goal w/patient, Assist pt to ID & incorporate diet changes for weight loss by S9, Refer to Structured Weight Loss program as appropriate, Encourage goal of using 250-300dcal per session for weight loss - Healthy Eating Habits Will attend diet classes:: Yes Outcomes/Goals:: Consume diet rich in vegs,fruits,whole grain/high fiber,fish,lean meat, Limit sat/trans fats,cholesterol & added salts & sugars Intervention/Plan:: Assess current eating habits - Education Gave educational materials for:: Relate diabetes to coronary artery disease, Healthy eating Nutrition - 30-Day Assessment Nutrition - 60-Day Assessment Nutrition - 90-Day Assessment Nutrition - Final Assessment Medical - Initial Assessment - Visit Date of Eval: 04/28/21 Session #:: 0 - Pre-cardiac rehab evaluation - Medication Compliance Preventative Medication(s):: Aspirin, Ticagrelor/P2Y12 inhibitor, Beta mima H/O mental health issues: depression, anxiety, or addiction?: No Doesn?t believe in the benefits of treatment?: No Believes medications are unnecessary or harmful?: No Has a concern about medication side effects?: No Expresses concern over the cost of medications?: No Outcomes/Goals: Verbalizes medications,desired effect & common side effects @ DC, Pt self-reports following medication regimen, Keeps card in wallet w/medications listed by DC Interventions/plans: Instruct on medication effects & side effects, Review medication list w/patient every two weeks, Instruct importance of taking meds as ordered & assist problem solving - Tobacco Use Tobacco Use: Cigarettes How many cigarettes do you smoke per day?: 10 Years Smokin Do you use smokeless tobacco?: No Outcomes/Goals: Smoking cessation achieved or maintained by discharge, Identify aids/strategies for achieving smoking cessation by session 6, Other additional outcome/goals - actively participate in a smoking cessation program Interventions/plan: Instruct on effects of smoking & provide smoking cessation resource, Assist pt to set quit date & provide encouragement, Assist pt to develop strategies to achieve/maintain quit date, Assist pt w/nicotine replacement & medication for cessation success - Hypertension Hypertension Diagnosis:: Hypertension ICD-10 I10 Resting Blood Pressure:: 92/62 [place] [employer] Hypertension Guidelines: [place] [employer] Hypertension Guidelines. Normal BP Less than 120/80. Elevated BP 120/80. Hypertension Stage 1: BP 130-139/80-89. Hypertesnion Stage 2: BP 140 or higher/90 or higher. Hypertension Crisis: BP higher than 180/120 Outcomes/Goals: Able to verbalize/achieve optimal blood pressure <130/80, Incorporates diet changes & exercise for blood pressure control by DC Interventions/plan: Instruct on optimal blood pressure, hypertension & medications, Instruct on effects of sodium, alcohol, stress, exercise &hypertension - Tobacco Cessation Referral Smoking Cessation Referral:: Yes Individual Education/Counseling:: Yes Education Schedule Given:: Yes Medical- 30-Day Assessment Medical- 60-Day Assessment Medical- 90-Day Assessment Medical - Final Assessment Psychosocial - Initial Assess - VIsit Date of Eval: 04/28/21 Session #:: 0 - pre-cardiac rehab evaluation Not Applicable: Yes History of previous Mental disease:: No - Psychosocial Test Tool Used:: [employer] [place] QOL Cardiac, PHQ-9 Questionnaire phq-9 Severity: Severity. 1-4 Minimal Depression. 5-9 Mild Depression. 10-14 Moderate Depression. 15-19 Moderately Sever Depression. 20-27 Severe Depression. Rule: - Referral to Behavioral Health PS - Interventions: Yes Attend Stress Management Classes, No Referral to Behavioral Health if PHQ-9 score >9:, No Referral to [facility], No Referral to Physician if PHQ-9 if score is 5-9: - Outcomes/Goals: See list Psychosocial Outcomes/Goals:: ID's personal stressors & 2 strategies to manage stress by discharge - Intervention/Plan: See List Interventions/Plan:: Assess stressors,coping strategies & signs of derpression on admission, Instruct/assist pt to develop coping & personal stress Mgt strategies, Instruct patient to recognize signs & symptoms of depression, Instruct patient to recog Psychosocial - 30-Day Assess Psychosocial - 60-Day Assess Psychosocial - 90-Day Assess Psychosocial - Final Assessmen Patient Health Questionnaire Initial Assessment 1. Little interest or pleasure in doing things: Not at all 2. Feeling down, depressed, or hopeless: Several days 3. Trouble falling or staying asleep, or sleeping too much: Several days 4. Feeling tired or having little energy: Several days 5. Poor appetite or overeating: Several days 6. Feeling bad about yourself -- or that you are a failure or have let yourself or your family down: Nearly every day 7. Trouble concentrating on things, such as reading the newspaper or watching television: Not at all 8. Moving or speaking so slowly that other people could have noticed. Or the opposite - being so fidgety or restless that you have been moving around a lot more than usual: Not at all 9. Thoughts that you would be better off , or of hurting yourself in some way: Not at all How difficult have these problems made it for you to do your work, take care of things at home, or get along with other people?: Somewhat difficult Total Score: 7 YONI-Q SV Test - Statements CAD is a disease of the arteries in the heart: False Examples of risk factors for heart disease: I Don't Know Angina is chest pain or discomfort: I Don't Know The benefits of resistance training include: I Don't Know Eating more meat and dairy products: I Don't Know Anti-platelet medications such as aspirin are important: I Don't Know The only effective way to manage stress: I Don't Know An exercise warm-up slowly increases heart rate: True Prepared, processed foods usually have high sodium: True Depression is common after a heart attack: I Don't Know The statin medications lower cholesterol: I Don't Know To control blood pressure, lower the amount of sodium: I Don't Know If someone gets chest discomfort during walking: I Don't Know Transfats are partially hydrogenated vegetable oils: I Don't Know Sleep apnea that is not treated increases the risk: I Don't Know To control cholesterol, one should become a vegetarian: I Don't Know Someone knows if he/she is exercising at the right level: I Don't Know Diabetes cannot be prevented with exercise & health eating: False Stress is a large risk for heart attack: True A diet that can help lower blood pressure is rich in: True - Total Score Total Correct Responses: 6 Self-Efficacy Initial Assessment We would like to know how confident you are in doing certain activities. Please select your confidence level for:: Select your confidence level for the following using the scale 1-10 where 1 is not at all confident and 10 is totally confident. Your score is the average of all 6 responses. Fatigue: How confident are you that you can keep the fatigue caused by your disease from interfering with the things you want to do? Select Number: 6 Physical Discomfort or Pain: How confident are you that you can keep the physical discomfort or pain of your disease from interfering with the things you want to do? Select Number: 1 Emotional Distress: How confident are you that you can keep the emotional distress caused by your disease from interfering with the things you want to do? Select Number: 6 Other Symptoms or Health Problems: How confident are you that you can keep other symptoms or health problems from interfering with the things you want to do? Select Number: 10 Different Tasks and Activities: How confident are you that you can do the different tasks and activities needed to manage your health condition so as to reduce your need to see a doctor? Select Number: 10 Medication: How confident are you that you can do things other than just taking medication to reduce how much your illness affects your everyday life? Select Number: 5 Total Score:: 6 Nutrition Survey - Nutrition Survey Initial Have you lost >10 lbs over the past 2 months without trying?: No Are you following a special diet at home for diabetes, low fat, or low salt?: No Are you interested in meeting with a dietitian for help understanding your diet?: Yes Do you eat less than 3 meals a day?: No Do you eat fatty meats (morrison, sausage, ribs, etc), fried foods, desserts, large amounts of salad dressings, margarine, butter, or cheese most days?: No Do you have food allergies? [Enter types in comment field]: No Do you eat in restaurants more than 3 times a week?: No Do you season food with salt, seasoning salt, or garlic salt?: Yes Do you used canned, boxed, frozen meals, or soups, seasoning packets?: Yes Total Score:: 3
--- NOTE | 2021-04-28 13:49 | PCM.CR.HP2 ---
CR - History & Physical - General Arrival date:: 04/28/21 Arrival time:: 13:52 Date of Referral:: 03/13/21 Date of CR Evaluation:: 04/28/21 Referring Physician: Dr. Markos Garcia Primary Diagnosis: STEMI, PCI w/coronary stenting - History of Present Cardiac Event Onset Date: Enter Onset Date of cardiac illnesses in Comment field below Acute Myocardial Infarction within 12 months:: Yes - ST elevation myocardial infarction PTCA or coronary stenting:: Yes - PCI w/coronary stenting Type of Symptoms:: Severe chest pains, chest was tight, couldn't breath..came by private car to the emergency room. Interventions with present event:: immediately taken to the [facility] laborer from the emergency room. Were there any complications?: none - Sleep Disorder Evaluation Hx of Sleep Apnea: No Do you snore loudly (louder than talking or can be heard through closed doors)?: Yes - difficulty sleeping at times Do you often feel tired/ fatigued/ sleepy during daytime?: Yes Has anyone observed you stop breathing during sleep?: No History of Hypertension (for STOP score): No STOP Results: Positive - Medications Home Medications: Ambulatory Orders Medication Instructions Recorded ciprofloxacin HCl [Cipro] 500 mg PO BID #10 tab 03/13/21 apixaban 5 mg tablet 5 mg PO BID #180 tab 03/23/21 aspirin 81 mg chewable tablet 81 tab PO DAILY #90 tab 03/23/21 atorvastatin 40 mg tablet 40 mg PO QHS #90 tab 03/23/21 carvedilol 3.125 mg tablet 3.125 mg PO BID #180 tab 03/23/21 famotidine 40 mg tablet 40 mg PO DAILY 03/23/21 prenat.vits,george,ahk-mnmj-lwrkx 1 tab PO DAILY 03/23/21 ticagrelor 90 mg tablet 90 mg PO BID #180 tab 03/23/21 - Allergies Allergies/Adverse Reactions: Allergies amoxicillin Allergy (Verified 03/23/21 13:09) Unknown Penicillins Allergy (Verified 03/23/21 13:09) Unknown Advanced Directives - Advanced Directives Power of Transfer Knitter: No Living Will: No Advance Directives Information Provided: Yes Advance Directives on File: No DNR Order?:: No Past Medical History - Covid-19 Screening Fever: No Unexplained muscle aches: No Current respiratory symptoms: No Upper respiratory infections symptoms: No Gastro-intestinal symptoms: No Kbj-Irkf-Itflrk symptoms: No Has tested positive for COVID-19 in last 30 days: No Date of testin04/28/21 - patient has nt been vaccinated Had contact w/person w/symptoms or Covid-19 (+) last 14 days: No Has High Risk Exposures ID'd by Health dept/Inf Control team: No 65 years or older:: No Lives in Assisted Living facility:: No Has a chronic lung disease or moderate to severe asthma:: Yes Has a serious heart condition:: Yes Immunocompromised:: No Severely obese (Body Mass Index of 40 or higher):: No Diabetic:: No Has chronic kidney disease undergoing dialysis:: No Has liver disease:: No - Past Medical Illness Medical History: Past Medical History (Last Updated 03/23/21 @ 13:28 by Malissa SHAY, PA) Asthma J45.909 Atherosclerosis of coronary artery without angina pectoris I25.[address] elevation myocardial infarction (STEMI) of anterior wall Onset Date: 03/11/21 I21.09 Tobacco abuse Z72.0 - Past Surgical History Surgical History: Past Surgical History (Last Reviewed 03/23/21 @ 13:26 by Malissa SHAY, PA) History of coronary artery stent placement Onset Date: 03/11/21 Z95.5 [id number] and Prox LAD w/ 3 x 30 mm Orsiro [place] Stent overlapped w/ 3 x 15 mm Orsiro [place] Stent 03/11/2021 - Family History Summary Family History: Family History (Last Reviewed 03/23/21 @ 13:26 by Malissa SHAY, PA) Father , age 68 CAD (coronary artery disease) had ICD Social History - Smoking History Smoking Status: Current every day smoker Years Smokin Packs Smoked per Day: 0.5 Hx Tobacco Use: Yes Hx Smoking Exposure: Yes - Alcohol Use Alcohol Usage: No - Substance Abuse Hx Substance Use: No - Occupation Occupation (List type of work in comments):: Retired - disability - Hobbies, Recreation, Social Activities Hobbies: Other - writing and reading, art-drawing Recreational Activities: I am able to engage in a few activities - still dealing with depression from stillborn , and then this medical issue of the heart attack Social Environment - Status Marital Status: Single - Current Living Arrangements Living Environment:: Family - Children How many children do you have?: 0 Do any of your children live nearby?: No - Safety Do you feel safe in your surroundings?: Yes - Assistance Do you need any assistance at home?: none Review of Systems - Review of Systems Hints: Right click = Denies (Slash). Left click = Reports ([place]) Review of Present Symptoms: Reports: Shortness of Breath with Exertion, Angina - unsure if it is angina; describes if she is standing to long she gets chest tightness that will occasionally go away after she rests. sometimes it last longer., Fatigue, Appetite - Normal. Denies: Shortness of Breath at Rest, Dizziness/Lightheadedness, Heart Arrhythmia/Irregularities, Appetite - Special Diet, Sleep - Normal - have frequent periods where she cant sleep, Sexual Changes - Pain Is Patient Pain Free?: Yes Pain Location: none Pain Level: 0/10 Risk Factor Assessment - Chief Complaint Chief Complaint: [address] Garcia's who presents to CR today for her evaluation to start CR. - Vital Signs Temperature: 97.8 F Respiratory Rate: 14 Pulse Ox: 96 Blood Pressure: 92/62 - Pulse Pulse Rate: 80 Pulse Rhythm: Regular - Hypertension Blood Pressure Sitting - Left Arm: 92/62 - Blood Cholesterol/Lipids Total Cholesterol (mg/dL) Goal = less than 200 mg/dL: 156 HDL Cholesterol (mg/dL) Goal = less than 40 mg/dL: 36 LDL Cholesterol (mg/dL) Goal = less than 70 mg/dL: 101 Triglycerides (mg/dL) Goal = less than 150 mg/dL: 97 - Obesity Height: 5 ft 3 in Weight:: 179 lb Weight in Pounds: 179.0 lbs Weight Source: Standing Scale Body Mass Index (BMI): 31.6 Nutritional Referral for Obesity: Yes - Physical Inactivity Physical Inactivity: None - Risk Stratification Risk Guidelines: Lowest Risk: Risk Factor for Diabetes, Risk Factor for Hypertension, Risk Factor for Depression, Moderate Risk: Risk Factor for Dyslipidemia, Risk Factor for Sedentary Lifestyle, Highest Risk: Risk Factor for Smoking, Risk Factor for Obesity - Family History Family History: Family History (Last Reviewed 03/23/21 @ 13:26 by Malissa Durbin PA, PA) Father CAD (coronary artery disease) Motivation - Motivation to Participate On a scale of 1 to 10, how prepared are you to commit to attending program?: 10 What do you see as barriers to successfully being able to complete the program?: shortness of breath when getting to worked up-asthma What do you see as the benefits of succesfully completing the program? In other words, what do you hope to get out of participating in the program?: getting healthier quitting smoking Are there issues you are dealing with that will interfere with completing the program?: depression of losing baby boy who was stillborn at Do you have a spouse or signficant other, family or friends who will help support you to complete the program?: yes
[2021-04-28 14:11] VITALS: BP 92/62; BMI 31.6
[2021-04-28 14:25] VITALS: BP 92/62; PULSE 80; RESP 14; TEMP 36.6; O2SAT 96; BMI 31.6
== END 2021-04-28 23:59 | disposition home or self-care (01) ==
LOC: CR 14:52
PROVIDERS: PCP Family Medicine; Referring Provider Internal Medicine Cardiovascular Disease; Visit Provider Internal Medicine Cardiovascular Disease
DX: I25.10 Atherosclerotic heart disease of native coronary artery without angina pectoris (principal); J45.909 Unspecified asthma, uncomplicated; I25.5 Ischemic cardiomyopathy; I25.2 Old myocardial infarction; Z78.0 Asymptomatic menopausal state; Z95.5 Presence of coronary angioplasty implant and graft; Z79.01 Long term (current) use of anticoagulants; Z79.82 Long term (current) use of aspirin; Z79.899 Other long term (current) drug therapy

== ENCOUNTER 2021-05-19 13:00 | Outpatient (RCR) | payer MEDICAID, SELFPAY | END 2021-05-20 23:59 | disposition home or self-care (01) | LOC: CR 13:00 | PROVIDERS: PCP Family Medicine; Referring Provider Internal Medicine Cardiovascular Disease; Visit Provider Internal Medicine Cardiovascular Disease | DX: I23.6 Thrombosis of atrium, auricular appendage, and ventricle as current complications following acute myocardial infarction (principal); R57.0 Cardiogenic shock; I21.09 ST elevation (STEMI) myocardial infarction involving other coronary artery of anterior wall; I25.5 Ischemic cardiomyopathy; I25.10 Atherosclerotic heart disease of native coronary artery without angina pectoris; R93.1 Abnormal findings on diagnostic imaging of heart and coronary circulation; Z95.5 Presence of coronary angioplasty implant and graft; Z72.0 Tobacco use | CPT/HCPCS: S9472; 93798 ==

== ENCOUNTER 2021-06-16 13:00 | Outpatient (RCR) | payer MEDICAID, SELFPAY ==
--- NOTE | 2021-05-28 09:32 | PCM.CR.ITP ---
Diagnosis Exercise - 30-day Assessment - Visit Date of Eval: 05/28/21 Session #:: 8 - Physician Prescribed Exercise Modalities: Treadmill, Airdyne, NuStep Frequency: 3x/week for 12 weeks [36 sessions] Intensity: 60-80% of age predicted maximum heart rate reserve Current METSs:: 4.5 Target Heart Rate:: 122-159 Current RPE:: 11-12 Maximum Excercise HR:: 135 Resting Blood Pressure: 90/60 Maximum Exercise Blood Pressure: 114/64 EKG Type: NSR to sinus tachycardia no ectopy. Current Physical Activity or Exercising minutes: 34:52 - Outcomes & Goals Goals:: Verbalizes understanding of THR, RPE & goal METS by session 6, Documents in home exercise log/reports 30 min aerobic 5 day/wk by DC, Demonstrates accurate pulse taking by DC - Intervention & Plan Exercise Program Goals: Instruct on personal THR & RPE, Instruct on MET level & personal MET goal, Show patient to take own pulse /validate performance until accurate, Instruct on home exercise - 30-day Reassessments 30 day Reassessments:: Progressing - Physical Activity Home Exercise Physical Activity - Home Exercise: Safe Exercise, Warm-up, Self-monitoring, Cool-Down, Home Exercise > 30 min Daily, Sitting Time <3 hours/daily - Outcomes & Goals Outcomes/Goals: Demonstrates correct Warm-up/exercise Cool-Down (S3) if = 2.5 METs, Verbalizes symptoms of exercise intolerance by Session 3 (S3), Demonstrate safe equipment use (S3) & follows exercise prescrition (6) - Intervention & Plan Plan/Intervention: Instruct warm-up & cool-down if exercising at > 2 METs, Instruct on symptoms of exercise intolerance & actions to take, Instruct & monitor on saf, Assess intial functional capacity & safety risk - 30-day Reassessments 30 day Reassessments:: Progressing Nutrition - Initial Assessment Nutrition - 30-Day Assessment - Program Goals Nutrition Program Goals: LDL <100 optimal. 100 - 129 Near optimal. 130 - 159 Borderline High. 160 - 189 High. Total Cholesterol <200 desirable. 200 - 239 Borderline High. >/= 240 High. HDL < 40 Low >/=60 High. Triglycerides <150 desirable. <199 optimal. VlDL 5 - 40. HgbA1C <7%. BMI <25 Patient has diagnosis of Hyperlipidemia (ICD E78)?: Yes - Visit Date of Assessment:: 05/28/21 Session #:: 8 - Cholesterol/Lipids Triglycerides (mg/dL): 97 Total Cholesterol (mg/dL): 156 LDL Cholesterol (mg/dL): 101 HDL Cholesterol (mg/dL): 36 Determine presence & major risk factors that modify LDL goal: Cigarette smoking, Hypertension or hypertensive medication, Low HDL cholesterol <40 mg/dL* Outcomes/Goals: Pt IDs own risk factors & lifestyle modifications by Session 10, Verbalizes symptoms of angina & response by session 3., Pt independently manages Intervention/Plan: Instruct on personal lipid levels & lipid goals/NCEP guidelines, Instruct on cholesterol Referral to dietitian:: Yes - Medical Nutrition Therapy 30-day Reassessments:: Progressing - Diabetes (Other Core Measures) Diabetes Type: Not Applicable - Weight Mgt (Other Care) Height: 5 ft 3 in Weight:: 172 lb BMI: 30.4 Diagnosis Overweight/Obesity BMI> 30% ICD-10 E66: Yes Diagnosis High BMI/Morbid Obesity BMI> 35% ICD-10 Z68: No Outcomes/Goals: Pt sets, maintains & shows weight loss goal & trend during rehab Intervention/Plan: Instruct on ideal BMI & set weight loss goal w/patient, Assist pt to ID & incorporate diet changes for weight loss by S9, Refer to Structured Weight Loss program as appropriate, Encourage goal of using 250-300dcal per session for weight loss 30 day Reassessments:: Progressing - Healthy Eating Habits Will attend diet classes:: Yes Outcomes/Goals:: Consume diet rich in vegs,fruits,whole grain/high fiber,fish,lean meat, Limit sat/trans fats,cholesterol & added salts & sugars Intervention/Plan:: Assess current eating habits 30-day Reassessments:: Progressing - Education Gave educational materials for:: Healthy eating Nutrition - 60-Day Assessment Nutrition - 90-Day Assessment Nutrition - Final Assessment Medical - Initial Assessment Medical- 30-Day Assessment - Visit Date of Eval: 05/28/21 Session #:: 8 - Medication Compliance Preventative Medication(s):: Aspirin, Ticagrelor/P2Y12 inhibitor, Statin/lipid, Beta mima, Eliquis H/O mental health issues: depression, anxiety, or addiction?: Yes Doesn?t believe in the benefits of treatment?: No Believes medications are unnecessary or harmful?: No Has a concern about medication side effects?: No Expresses concern over the cost of medications?: No Outcomes/Goals: Verbalizes medications,desired effect & common side effects @ DC, Pt self-reports following medication regimen, Keeps card in wallet w/medications listed by DC Interventions/plans: Instruct on medication effects & side effects, Review medication list w/patient every two weeks, Instruct importance of taking meds as ordered & assist problem solving 30-day Reassessments:: Progressing - Tobacco Use Tobacco Use: Cigarettes How many cigarettes do you smoke per day?: 10 Years Smokin Do you use smokeless tobacco?: No Outcomes/Goals: Smoking cessation achieved or maintained by discharge, Identify aids/strategies for achieving smoking cessation by session 6 Interventions/plan: Instruct on effects of smoking & provide smoking cessation resource, Assist pt to set quit date & provide encouragement, Assist pt to develop strategies to achieve/maintain quit date, Assist pt w/nicotine replacement & medication for cessation success 30-day Reassessments:: Not Met Reassessment Notes & Comments:: Still smoking 1/2 PPD, has not followed-up with Smoking Cessation - Hypertension Hypertension Diagnosis:: Hypertension ICD-10 I10 Resting Blood Pressure:: 90/60 [place] [employer] Hypertension Guidelines: [place] [employer] Hypertension Guidelines. Normal BP Less than 120/80. Elevated BP 120/80. Hypertension Stage 1: BP 130-139/80-89. Hypertesnion Stage 2: BP 140 or higher/90 or higher. Hypertension Crisis: BP higher than 180/120 Peak Exercise Blood Pressure:: 114/64 Outcomes/Goals: Able to verbalize/achieve optimal blood pressure <130/80, Incorporates diet changes & exercise for blood pressure control by DC Interventions/plan: Instruct on optimal blood pressure, hypertension & medications, Instruct on effects of sodium, alcohol, stress, exercise &hypertension 30 day Reassessments:: Progressing - Tobacco Cessation Referral Smoking Cessation Referral:: Yes Individual Education/Counseling:: Yes - One-on-One Smoking Cessation Education Schedule Given:: Yes Medical- 60-Day Assessment Medical- 90-Day Assessment Medical - Final Assessment Psychosocial - Initial Assess Psychosocial - 30-Day Assess - VIsit Date of Eval: 05/28/21 Session #:: 8 Not Applicable: Yes History of previous Mental disease:: No Self-reported stressors: Family - Psychosocial Test Tool Used:: PHQ-9 Questionnaire phq-9 Severity: Severity. 1-4 Minimal Depression. 5-9 Mild Depression. 10-14 Moderate Depression. 15-19 Moderately Sever Depression. 20-27 Severe Depression. Rule: - Referral to Behavioral Health PS - Interventions: Yes Attend Stress Management Classes, No Referral to Behavioral Health if PHQ-9 score >9:, No Referral to [facility], No Referral to Physician if PHQ-9 if score is 5-9: - Outcomes/Goals: See list Psychosocial Outcomes/Goals:: ID's personal stressors & 2 strategies to manage stress by discharge - Intervention/Plan: See List Interventions/Plan:: Assess stressors,coping strategies & signs of derpression on admission, Instruct/assist pt to develop coping & personal stress Mgt strategies, Instruct patient to recognize signs & symptoms of depression, Instruct patient to recog - 30-day Reassessments: 30 day Reassessments:: Progressing Psychosocial - 60-Day Assess Psychosocial - 90-Day Assess Psychosocial - Final Assessmen Patient Health Questionnaire 30-Day Re-eval Assessment 1. Little interest or pleasure in doing things: Not at all 2. Feeling down, depressed, or hopeless: Several days 3. Trouble falling or staying asleep, or sleeping too much: Several days 4. Feeling tired or having little energy: Several days 5. Poor appetite or overeating: Several days 6. Feeling bad about yourself -- or that you are a failure or have let yourself or your family down: Nearly every day 7. Trouble concentrating on things, such as reading the newspaper or watching television: Not at all 8. Moving or speaking so slowly that other people could have noticed. Or the opposite - being so fidgety or restless that you have been moving around a lot more than usual: Not at all 9. Thoughts that you would be better off , or of hurting yourself in some way: Not at all How difficult have these problems made it for you to do your work, take care of things at home, or get along with other people?: Somewhat difficult Total Score: 7 Self-Efficacy 30-Day Re-eval Assessment We would like to know how confident you are in doing certain activities. Please select your confidence level for:: Select your confidence level for the following using the scale 1-10 where 1 is not at all confident and 10 is totally confident. Your score is the average of all 6 responses. Fatigue: How confident are you that you can keep the fatigue caused by your disease from interfering with the things you want to do? Select Number: 6 Physical Discomfort or Pain: How confident are you that you can keep the physical discomfort or pain of your disease from interfering with the things you want to do? Select Number: 1 Emotional Distress: How confident are you that you can keep the emotional distress caused by your disease from interfering with the things you want to do? Select Number: 6 Other Symptoms or Health Problems: How confident are you that you can keep other symptoms or health problems from interfering with the things you want to do? Select Number: 10 Different Tasks and Activities: How confident are you that you can do the different tasks and activities needed to manage your health condition so as to reduce your need to see a doctor? Select Number: 10 Medication: How confident are you that you can do things other than just taking medication to reduce how much your illness affects your everyday life? Select Number: 5 Total Score:: 6 Nutrition Survey
[2021-05-28 09:41] VITALS: BP 114/64; BP 90/60; BMI 30.4
== END 2021-06-19 23:59 ==
LOC: CR 13:00
PROVIDERS: PCP Family Medicine; Referring Provider Internal Medicine Cardiovascular Disease; Visit Provider Internal Medicine Cardiovascular Disease
DX: I25.10 Atherosclerotic heart disease of native coronary artery without angina pectoris (principal); R57.0 Cardiogenic shock; I23.6 Thrombosis of atrium, auricular appendage, and ventricle as current complications following acute myocardial infarction; R93.1 Abnormal findings on diagnostic imaging of heart and coronary circulation; I25.2 Old myocardial infarction; I25.5 Ischemic cardiomyopathy; Z95.5 Presence of coronary angioplasty implant and graft; Z72.0 Tobacco use
CPT/HCPCS: 93798

== ENCOUNTER 2021-06-21 09:30 | Outpatient (RCR) | payer MEDICAID, SELFPAY ==
[2021-05-28 09:41] VITALS: BMI 30.4
[2021-06-20 00:39] VITALS: BP 114/64; BP 90/60
== END 2021-07-20 23:59 ==
LOC: CR 09:30
PROVIDERS: PCP Family Medicine; Referring Provider Internal Medicine Cardiovascular Disease; Visit Provider Internal Medicine Cardiovascular Disease
DX: I25.10 Atherosclerotic heart disease of native coronary artery without angina pectoris (principal); R57.0 Cardiogenic shock; I23.6 Thrombosis of atrium, auricular appendage, and ventricle as current complications following acute myocardial infarction; R93.1 Abnormal findings on diagnostic imaging of heart and coronary circulation; I25.2 Old myocardial infarction; I25.5 Ischemic cardiomyopathy; Z95.5 Presence of coronary angioplasty implant and graft; F17.200 Nicotine dependence, unspecified, uncomplicated

== ENCOUNTER 2023-04-21 03:58 | Observation (INO) | payer MEDICAID, SELFPAY ==
[2021-05-28 09:41] VITALS: BMI 30.4
[2023-04-21] VITALS (8 sets, daily range): BP systolic 100–162; BP diastolic 58–89; PULSE 52–87; RESP 14–18; TEMP 35.9–36.9; O2SAT 98–100; BMI 29.4; BMI 30.7
--- NOTE | 2023-04-21 04:14 | EKG12_ITS ---
Test Reason : CHEST PAIN Blood Pressure : / mmHG Vent. Rate : 065 BPM Atrial Rate : 065 BPM P-R Int : 146 ms QRS Dur : 058 ms QT Int : 432 ms P-R-T Axes : 057 044 048 degrees QTc Int : 449 ms Sinus rhythm with marked sinus arrhythmia Low voltage QRS Septal infarct , age undetermined Abnormal ECG Confirmed by SOMMER THOMSON, VENKAT ([id number]), senior technical editor BRIDGET RM ([id number]) on 04/24/2023 2:00:28 PM Referred By: DANAE Confirmed By:EDSON NOVOA MD
--- NOTE | 2023-04-21 04:14 | CT_ITS ---
EXAM: CT ABDOMEN AND PELVIS WITH INTRAVENOUS CONTRAST CLINICAL INDICATION: abd pain TECHNIQUE: Helically acquired images were obtained of the abdomen and pelvis with intravenous contrast. This CT exam was performed using one or more of the following dose reduction techniques: automated exposure control, adjustment of the mA and/or kV according to patient size, and/or use of iterative reconstruction technique. CONTRAST: IV 100mL Isovue-370 RADIATION DOSE: CTDIvol = 13.38 mGy, DLP = 814.61 mGy-cm COMPARISON: March 11, 2021. FINDINGS: LOWER THORAX: Unremarkable. Lung bases are clear. No cardiomegaly. No significant pericardial effusion. ABDOMEN: LIVER: Mild central intrahepatic duct dilatation, the common duct tapers to 8 mm distally, it is 1.2 cm proximally. GALLBLADDER AND BILE DUCTS: There is prominent stone deep in the neck of the gallbladder, at least 2.1 cm, and prominently distended gallbladder of 4.1 cm transverse slightly hazy soft tissue stranding near the gallbladder, especially proximally. PANCREAS: Unremarkable. No focal cystic or solid mass. SPLEEN: Unremarkable. Normal size without focal cystic or solid mass. ADRENALS: Unremarkable. No nodules. KIDNEYS AND URETERS: Unremarkable. Normal renal size and position. No hydronephrosis. STOMACH AND BOWEL: Unremarkable. No stomach or bowel distention. No focal inflammatory change. PELVIS: APPENDIX: Normal appendix is best seen on sagittal images 47 through 57. BLADDER: Unremarkable. REPRODUCTIVE: Dominant follicle in the right ovary, 2 cm x 2 cm x 1.7 cm. ABDOMEN and PELVIS: INTRAPERITONEAL SPACE: Unremarkable. No ascites or other fluid collection. No free air. BONES/JOINTS: Unremarkable. No suspicious lytic or blastic abnormality. SOFT TISSUES: Unremarkable. No discrete abdominal or pelvic wall hernia. VASCULATURE: Unremarkable. Abdominal aorta is non-dilated. LYMPH NODES: Mild fluid and gas in the stomach, mild fluid in some of the small bowel. Mild gas and stool in the colon. Minimal gas in the rectum. Small scattered lymph nodes in the root of the mesentery. OTHER FINDINGS: Minimal disc bulges at L4-5 and L5-S1 possibly small broad-based disc protrusions. CT/Abdomen/Pelvis W IV Cont ONLY IMPRESSION: 1. Findings highly consistent with early acute cholecystitis. Prominently distended gallbladder with large stone deep in the neck and at least borderline 3 mm gallbladder wall. Slight surrounding haziness. 2. Mildly dilated central intrahepatic and extrahepatic ducts, no visible filling defect. 3. Consider ultrasound if not recently performed. 4. Dominant follicle in the right ovary. Electronically Signed: Belen Beltrán MD at 5:55 EST ,
[2023-04-21] MEDS: 0.9% Normal Saline (1000mL) 1,000 ML 999 ML IV (04:20)
[2023-04-21] MEDS: HYDROmorphone 1 MG/ML Syringe IV ×3 (04:20→17:45)
[2023-04-21] MEDS: Ondansetron 4 MG/2 ML Vial IV ×2 (04:20→22:55)
[2023-04-21 04:24] LABS: Absolute Lymphocyte Count 3.96 X10^3/uL (0.83-4.51); Basophil# 0.06 X10^3/uL; Basophil% 0.5 % (0-1); Eosinophil# 0.55 X10^3/uL; Eosinophils% 4.1 % (0-5); Hematocrit 39.6 % (37-47); Hemoglobin 12.4 g/dL (12.0-15.0); Lymphocyte # 3.96 X10^3/ul (0.83-4.51); Lymphocyte % 29.7 % (19-41); Mean Corp Hgb Conc 31.3 g/dL (32-36); Mean Corpuscular Hgb 25.3 pg (27.0-32.0); Mean Corpuscular Volume 80.7 fL (81-99); Mean Platelet Vol. 8.5 fl (6.2-12.0); Monocyte# 0.67 X10^3/uL; NRBC Flagged by Analyzer 0 % (0-5); Neutrophil # 8.04 X10^3/uL (2.7-7.7); Neutrophil % 60.4 % (47-70); Platelet Count 530 K/mm3 (150-450); RBC Distribution Width CV 14.7 % (11.6-14.6); RBC Distribution Width SD 42.8 fl (35.1-43.9); Red Blood Count 4.91 M/mm3 (4.2-5.4); White Blood Count 13.3 K/mm3 (4.4-11.0)
--- NOTE | 2023-04-21 04:27 | EX.ED.DYSGE1 ---
HPI History of Present Illness Chief Complaint: Chest Pain Informant: patient Narrative Narrative: Patient is a 32-year-old female with past medical history of ischemic cardiomyopathy and coronary artery disease with STEMI roughly 2 years ago. She states that last night around 9:00 she developed chest pain which after further questioning is really midepigastric upper abdominal pain. She states the pain has been constant since its onset and has caused nausea without vomiting. She denies any fevers or chills diaphoresis or shortness of breath. She states that there is been no associated dysuria or hematuria she denies any diarrhea. She states that as the symptoms seem to be gradually worsening instead of improving over time and the fact she has known coronary artery disease comes in for evaluation [facility] Medical History Asthma Atherosclerosis of coronary artery without angina pectoris Ischemic cardiomyopathy ST elevation myocardial infarction (STEMI) of anterior wall (03/11/21) Tobacco abuse Home Medications apixaban 5 mg tablet (Eliquis) 5 mg PO BID #180 tabs 03/23/21 [Rx Last Taken Unknown] aspirin 81 mg chewable tablet 81 tab PO DAILY #90 tabs 03/23/21 [Rx Last Taken Unknown] atorvastatin 40 mg tablet 40 mg PO QHS #90 tabs 03/23/21 [Rx Last Taken Unknown] carvedilol 3.125 mg tablet (Coreg) 3.125 mg PO BID #180 tabs 03/23/21 [Rx Last Taken Unknown] famotidine 40 mg tablet 40 mg PO DAILY 03/23/21 [History Last Taken Unknown] ticagrelor 90 mg tablet (Brilinta) 90 mg PO BID #180 tabs 03/23/21 [Rx Last Taken Unknown] vit no.95-ferrous fumarate 28 mg-folic acid 800 mcg tablet 1 tab PO DAILY 05/05/21 [History Last Taken Unknown] tiotropium bromide 2.5 mcg/actuation mist for inhalation 2 puff inhalation DAILY 05/05/21 [History Last Taken Unknown] Allergy/AdvReac Type Severity Reaction Status Date / Time amoxicillin Allergy Unknown Verified 04/21/23 04:02 Penicillins Allergy Unknown Verified 04/21/23 04:02 Family History Father , age 68 CAD (coronary artery disease) had ICD Surgical History (Reviewed 05/05/21 @ 11:08 by Phuong Newman ASSET PROTECTION GREETER, ASSET PROTECTION GREETER-C) History of coronary artery stent placement (03/11/21) Social History current occupational status: disabled Smoking Status: Current every day smoker tobacco type: cigarettes alcohol intake: never substance use type: does not use caffeine: Yes Type: carbonated beverages, coffee and tea additional social history: completed 9th grade, working on [employer] ED Constitutional Constitutional ED: Denies chills or fever(s) Eyes Eyes: Denies change in vision ENT ENT ED: Denies sore throat Cardiovascular Cardiovascular: Reports chest pain; Denies palpitations or racing heartbeat Respiratory/Chest Respiratory/Chest: Denies cough or dyspnea Gastrointestinal Gastrointestinal: Reports abdominal pain and nausea; Denies diarrhea or vomiting Genitourinary Genitourinary ED: Denies dysuria or hematuria Musculoskeletal Musculoskeletal: Denies back pain or myalgias Integumentary Denies rash Neurologic Neurologic: Denies headache(s) Hematologic/Lymphatic Hematologic/Lymphatic: Reports easy bleeding and easy bruising EXAM Physical Exam Const Vital Signs: 04/21/23 03:59 04/21/23 05:12 04/21/23 06:18 Temperature 96.7 F L Temperature Source Temporal Pulse Rate 61 75 Respiratory Rate 14 18 16 Blood Pressure 162/83 H 128/89 H Blood Pressure Mean 109 102 Pulse Ox 100 99 Oxygen Delivery Method Room Air Room Air Positive well nourished and well developed General Appearance ED: well developed; Negative for pallor HEENT HEENT Narrative: Normocephalic atraumatic Eyes PERRL and EOMs intact bilaterally General Eye ED: Negative for scleral icterus Neck supple Neck Narrative: No nuchal rigidity or meningeal signs noted Chest Wall palpation of chest normal Resp normal respiratory effort and clear to auscultation bilaterally Cardio regular rate and regular rhythm Rate: other Other Details: Radial and carotid pulses are equal and symmetric GI non-distended GI Narrative: Abdomen is soft and nondistended with normal active bowel sounds. There is pain on palpation in the midepigastric and right upper quadrant region but greatest in the right upper quadrant region. There is voluntary guarding at this site with positive Morales sign. No pulsatile mass or fluid wave Auscultation: normoactive bowel sounds Palpation: soft Back/Spine no CVA tenderness Extremity normal to inspection Extremity Narrative: No asymmetric edema no pitting edema negative Homans' sign bilaterally Neuro oriented x3, CN's II-XII intact bilaterally and no sensory deficits noted Sensorium / Orientation: alert Motor Exam: strength 5/5 throughout Psych mental status grossly normal Skin no rashes or lesions noted and no wounds General Skin Exam: Negative for jaundice or pallor MDM MDM MDM Narrative Medical decision making narrative: Patient arrived to the ER slightly hypertensive but otherwise with stable vitals. She reported pain in the midepigastric to right upper quadrant region that had been present since roughly 9 PM and constant the entire time. Based on her history of ischemic cardiomyopathy as well as previous STEMI her symptom profile could potentially be from biliary colic versus acute cholecystitis versus pancreatitis versus acute coronary syndrome versus gastritis or colitis. Secondary to this differential basic laboratory studies were obtained and as her exam showed pain mainly in the right upper quadrant with guarding a CT with IV contrast of the abdomen and pelvis was obtained. Labs showed mildly elevated white count at 13.3 but otherwise no clinically significant findings. The patient's troponin is 3 and as she has had constant pain for 7 hours the fact that she has a normal EKG and troponin go against acute coronary syndrome. Lipase was normal going against acute pancreatitis and patient's liver enzymes are normal as well. However her CT scan does show a large stone within the gallbladder neck with changes concerning for early acute cholecystitis which does correlate with her history and physical exam. Based on the CT finding and her exam and ultrasound will be obtained. As that study is still pending patient will be signed out to the day physician Dr. Vo. History & Record Review Discussion w/independent historian: Patient Lab Data Attestation: I reviewed the patient's lab results. Labs: Laboratory Results - last 24 hr 04/21/23 04:08 WBC 13.3 H RBC 4.91 Hgb 12.4 Hct 39.6 MCV 80.7 L MCH 25.3 L MCHC 31.3 L RDW Std Deviation 42.8 RDW Coeff of Elke 14.7 H Plt Count 530 H MPV 8.5 Immature Gran % (Auto) 0.300 Neut % (Auto) 60.4 Lymph % (Auto) 29.7 Sandoval % (Auto) 5.0 Eos % (Auto) 4.1 Baso % (Auto) 0.5 Absolute Neuts (auto) 8.0 H Absolute Lymphs (auto) 3.96 Nucleated RBC % 0 Sodium 138 Potassium 4.1 Chloride 107 Carbon Dioxide 25.0 Anion Gap 6 BUN 10 Creatinine 0.81 Estim Creat Clear Calc 95.11 Est GFR (MDRD) Af Amer 104 Est GFR (MDRD) Non-Af 86 BUN/Creatinine Ratio 12.3 Glucose 108 H Calcium 9.2 Total Bilirubin 0.30 Direct Bilirubin 0.14 AST 12 L ALT 28 Alkaline Phosphatase 90 Troponin I High Sens 3 Total Protein 7.4 Albumin 3.4 Globulin 4.0 Lipase 45 Serum , Qual NEGATIVE Radiography Diagnostic Testing: Clinical Impression(s) from Imaging Studies Abdomen/Pelvis CT 04/21/23 04:14 IMPRESSION: 1. Findings highly consistent with early acute cholecystitis. Prominently distended gallbladder with large stone deep in the neck and at least borderline 3 mm gallbladder wall. Slight surrounding haziness. 2. Mildly dilated central intrahepatic and extrahepatic ducts, no visible filling defect. 3. Consider ultrasound if not recently performed. 4. Dominant follicle in the right ovary. Electronically Signed: Belen Beltrán MD at 5:55 EST Reading Location ID and State: [facility] / [place] Tel , Service support , Discharge Plan Triage Chief Complaint: Chest Pain ED Provider: William Jose Dx/Rx/DC Orders Clinical Impression: Acute calculous cholecystitis, History of ischemic cardiomyopathy Prescriptions: No Action famotidine 40 mg tablet 40 mg PO DAILY Eliquis 5 mg tablet 5 mg PO BID Qty: 180 3RF aspirin 81 mg tablet,chewable 81 tab PO DAILY Qty: 90 3RF atorvastatin 40 mg tablet 40 mg PO QHS Qty: 90 3RF Brilinta 90 mg tablet 90 mg PO BID Qty: 180 3RF carvedilol [Coreg] 3.125 mg tablet 3.125 mg PO BID Qty: 180 3RF Rx Instructions: must administer with a meal/food PNV cmb#95-ferrous fumarate-FA 28 mg iron- 800 mcg tablet 1 tab PO DAILY Spiriva Respimat 2.5 mcg/actuation mist 2 puff inhalation DAILY Patient Comments: Take 2 (TWO) puffs once DAILY Primary Care Provider: Ranjeet Bernard Referrals: Ranjeet Bernard MD [Primary Care Provider] -
[2023-04-21 04:44] LABS: AST(SGOT) 12 U/L (15-37); Alanine Aminotransfer ALT/SGPT 28 U/L (13-56); Albumin, Serum 3.4 g/dL (3.2-5.0); Alkaline Phosphatase 90 U/L (45-117); Anion Gap 6 (5-15); BUN 10 mg/dL (7-18); BUN/Creat Ratio 12.3 RATIO (10-20); Bilirubin, Direct 0.14 mg/dL (0.00-0.30); Calcium,Total 9.2 mg/dL (8.5-10.1); Chloride 107 mmol/L (98-107); Creatinine, Serum 0.81 mg/dL (0.55-1.02); EST Glomerular Filtration Rate 86 mL/min (>60); Est Glom Filt Rate - Afr Amer 104 mL/min (>60); Estimated Creatinine Clearance 95.11 ml/min; Glucose 108 mg/dL (74-106); Lipase 45 U/L (13-75); Potassium 4.1 mmol/L (3.5-5.1); Protein, Total 7.4 g/dL (6.4-8.2); Sodium Level 138 mmol/L (136-145); Troponin-I HS 3 pg/mL (3.0-54.0)
[2023-04-21 04:48] LABS: Internal QC Validated? YES +Cl - CLEAR BKGD; Pregnancy, Serum, hCG Quali. NEGATIVE Negative
[2023-04-21] MEDS: HYDROmorphone 0.5 MG/0.5 ML SYRINGE IV (05:10)
--- NOTE | 2023-04-21 05:59 | US_ITS ---
INDICATION: abd pain with abnormal CT EXAMINATION: Ultrasound US Abdomen Limited (quadrant) TECHNIQUE: Chau scale and color doppler imaging was performed of the right upper quadrant. COMPARISON: CT abdomen pelvis 04/21/23 FINDINGS: LIVER: 16.4 cm Hepatopedal portal flow. There is normal echotexture. No focal hepatic lesion. There is no free fluid. GALLBLADDER AND BILIARY TREE: Distended gallbladder. 22 mm shadowing stone at the gallbladder neck. Gallbladder wall measures less than 3 mm. No pericholecystic fluid. The proximal common bile duct measures 14 mm without proximal, sonographic appearance stone., Distal common bile duct is not well seen by ultrasound. Songraphic Morales''s sign: Positive. PANCREAS: No focal abnormality is demonstrated in the pancreas. Mildly dilated pancreatic duct. RIGHT KIDNEY: 10.3 cm in length. No hydronephrosis. No shadowing nephrolithiasis. Normal cortical echogenicity without focal thinning or scarring. No evidence of cystic or solid mass. US/Gallbladder IMPRESSION: Distended gallbladder with large gallbladder neck stone and positive sonographic Morales''s. Findings can be seen with early cholecystitis or symptomatic cholelithiasis. Nuclear medicine hepatobiliary scan could further evaluate as clinically indicated. Biliary ductal dilatation and mild pancreatic ductal dilatation. Correlate with biliary labs or evidence of obstruction. MRCP could better evaluate distal common bile duct as indicated. Electronically Signed: Nick Myers MD at 7:40 EST ,
--- NOTE | 2023-04-21 07:57 | NURSING ---
MED SURG OBS DAWN RUQ PAIN, CHOLECYSTITIS, HX OF HEART DISEASE
--- NOTE | 2023-04-21 08:00 | GALL_PTH ---
PATHOLOGY RESULTS PATIENT: YURI DAVIS LOC: MS3 U#:[id number] AGE/SX: 32/F [place] [facility] [place]: Dr. Michael Patel MD : [id number] BED: 1 DIS: 04/22/2023 SPEC #: [id number] RECD: 04/24/23 08:38 STATUS: WILLIAM NAGEL #: [id number] QUIANA: 04/21/23 08:[address]: Michael Patel DEPT: SURGICAL PATHOLOGY RECD BY: Helen Rizzo ENTERED: 04/24/23 08:38 SP TYPE: ZANE JOYA DR: Dr. Ranjeet Bernard MD Tissues: Gallbladder, NOS Procedures: Surgery Specimen Level III HEADER OPERATION: Laparoscopic cholecystectomy with IOC PRE-OP DIAGNOSIS: Acute calculous cholecystitis TISSUE SUBMITTED: Gallbladder MICROSCOPIC DIAGNOSIS Gallbladder, cholecystectomy: Acute and chronic ulcerated cholecystitis and cholelithiasis. SJ:marissa 04/25/2023 MICROSCOPIC DESCRIPTION Slides are reviewed. GROSS DESCRIPTION Received is one container labeled with the patient's name and designated gallbladder. The specimen consists of a gallbladder measuring 10.0 x 4.8 x 3.0 cm. The external surface is smooth and glistening. Focally, it is granular, hemorrhagic and contains cautery artifact. The lumen of the gallbladder contains greenish mucoid bile and a single ovoid, light meadows calculus measuring 2.6 cm in greatest dimension. The mucosa is bile-stained and without any mass lesions. The gallbladder wall averages 0.7 cm in thickness and is free of mass lesions. Commissary Agent sections of the gallbladder and the cystic duct at margin of resection are submitted in one cassette. / AM:marissa 04/24/2023 TC:2 CPT: 75405
[2023-04-21] MEDS: 0.9% Normal Saline (1000mL) 1,000 ML 125 ML IV ×2 (08:25→20:26)
[2023-04-21] MEDS: Clindamycin 900 MG/50 ML BAG 75 MG IV (08:25)
[2023-04-21] MEDS: 0.9% Saline Lock 10 ML Syringe IV ×2 (11:01→17:45)
[2023-04-21] MEDS: Morphine 2 MG/ML Syringe IV ×2 (11:02→22:58)
--- NOTE | 2023-04-21 12:40 | EKG12_ITS ---
Test Reason : preop Blood Pressure : / mmHG Vent. Rate : 047 BPM Atrial Rate : 047 BPM P-R Int : 132 ms QRS Dur : 070 ms QT Int : 480 ms P-R-T Axes : 051 036 046 degrees QTc Int : 424 ms Sinus bradycardia Low voltage QRS Borderline ECG When compared with ECG of 21-APR-2023 04:01, MANUAL COMPARISON REQUIRED, DATA IS UNCONFIRMED Confirmed by SOMMER THOMSON, VENKAT ([id number]), supervising film or videotape editor BRIDGET RM ([id number]) on 04/24/2023 2:03:03 PM Referred By: Amanda Confirmed By:EDSON NOVOA MD
[2023-04-21] MEDS: Ciprofloxacin 400 MG/200 ML BAG 200 MG IV ×2 (12:53→22:24)
[2023-04-21] MEDS: metroNIDAZOLE 500 MG/100 ML BAG 100 MG IV ×2 (15:09→21:13)
--- NOTE | 2023-04-21 16:48 | PCM.HP.STD ---
HPI - General General Date of Admission: 04/21/23 HPI Narrative YURI DAVIS, is a 32 F who presents with epigastric pain. She reports the pain started at 4 AM this morning. She denies fevers or chills. She says she had a little bit of nausea but no vomiting. She has never had gallbladder problems in the past. Pain does not radiate. [facility] Medical History Asthma Atherosclerosis of coronary artery without angina pectoris Ischemic cardiomyopathy ST elevation myocardial infarction (STEMI) of anterior wall (03/11/21) Tobacco abuse Home Medications apixaban 5 mg tablet (Eliquis) 5 mg PO BID #180 tabs 03/23/21 [Rx Last Taken Unknown] aspirin 81 mg chewable tablet 81 tab PO DAILY #90 tabs 03/23/21 [Rx Last Taken Unknown] atorvastatin 40 mg tablet 40 mg PO QHS #90 tabs 03/23/21 [Rx Last Taken Unknown] carvedilol 3.125 mg tablet (Coreg) 3.125 mg PO BID #180 tabs 03/23/21 [Rx Last Taken Unknown] famotidine 40 mg tablet 40 mg PO DAILY 03/23/21 [History Last Taken Unknown] ticagrelor 90 mg tablet (Brilinta) 90 mg PO BID #180 tabs 03/23/21 [Rx Last Taken Unknown] vit no.95-ferrous fumarate 28 mg-folic acid 800 mcg tablet 1 tab PO DAILY 05/05/21 [History Last Taken Unknown] tiotropium bromide 2.5 mcg/actuation mist for inhalation 2 puff inhalation DAILY 05/05/21 [History Last Taken Unknown] Allergy/AdvReac Type Severity Reaction Status Date / Time amoxicillin Allergy Rash Verified 04/21/23 09:57 Penicillins Allergy Rash Verified 04/21/23 09:57 Family History Father , age 68 CAD (coronary artery disease) had ICD Surgical History History of coronary artery stent placement (03/11/21) Social History current occupational status: disabled Smoking Status: Current every day smoker tobacco type: cigarettes alcohol intake: never substance use type: does not use caffeine: Yes Type: carbonated beverages, coffee and tea additional social history: completed 9th grade, working on [employer] Constitutional Constitutional: Denies anorexia, chills or fatigue Eyes Eyes: Denies blurry vision ENT HEENT: Denies abnormal hearing Cardiovascular Cardiovascular: Denies chest pain Respiratory/Chest Respiratory/Chest: Denies cough or dyspnea Gastrointestinal Gastrointestinal: Reports abdominal pain and nausea; Denies vomiting Genitourinary Genitourinary: Denies change in urinary stream Musculoskeletal Musculoskeletal: Denies abnormal gait Integumentary Integumentary: Denies new lesions Neurologic Neurologic: Denies abnormal gait Psychiatric Psychiatric: Denies anxiety Endocrine Endocrinology: Denies flushing Hematologic/Lymphatic Hematologic/Lymphatic: Denies easy bleeding Vital Signs Vital Signs Vital Signs: 04/21/23 03:59 04/21/23 05:12 04/21/23 06:18 Temperature 96.7 F L Temperature Source Temporal Pulse Rate 61 75 Respiratory Rate 14 18 16 Blood Pressure 162/83 H 128/89 H Blood Pressure Mean 109 102 Blood Pressure Source Blood Pressure Position Blood Pressure Location Pulse Ox 100 99 Oxygen Delivery Method Room Air Room Air 04/21/23 07:39 04/21/23 09:20 04/21/23 10:07 Temperature 97.8 F 97.7 F L Temperature Source Oral Pulse Rate 75 68 52 L Respiratory Rate 16 16 16 Blood Pressure 126/87 H 100/69 136/87 H Blood Pressure Mean 100 79 103 Blood Pressure Source Monitor Blood Pressure Position Semi-Fowlers Blood Pressure Location Right Arm Pulse Ox 98 98 99 Oxygen Delivery Method Room Air Room Air Weight Weight: 168 lb 4 oz Body Mass Index (BMI) 30.7 Physical Exam Const oriented x3 and no apparent distress Resp normal respiratory effort Cardio regular rate and regular rhythm GI soft to palpation Palpation: tender RUQ Results Lab / Micro Data 04/21/23 04:08 04/21/23 04:08 Labs: Laboratory Results - last 24 hr 04/21/23 04:08: WBC 13.3 H, RBC 4.91, Hgb 12.4, Hct 39.6, MCV 80.7 L, MCH 25.3 L, MCHC 31.3 L, RDW Std Deviation 42.8, RDW Coeff of Elke 14.7 H, Plt Count 530 H, MPV 8.5, Immature Gran % (Auto) 0.300, Neut % (Auto) 60.4, Lymph % (Auto) 29.7, [place] % (Auto) 5.0, Eos % (Auto) 4.1, Baso % (Auto) 0.5, Absolute Neuts (auto) 8.0 H, Absolute Lymphs (auto) 3.96, Nucleated RBC % 0, Sodium 138, Potassium 4.1, Chloride 107, Carbon Dioxide 25.0, Anion Gap 6, BUN 10, Creatinine 0.81, Estim Creat Clear Calc 95.11, Est GFR (MDRD) Af Amer 104, Est GFR (MDRD) Non-Af 86, BUN/Creatinine Ratio 12.3, Glucose 108 H, Calcium 9.2, Total Bilirubin 0.30, Direct Bilirubin 0.14, AST 12 L, ALT 28, Alkaline Phosphatase 90, Troponin I High Sens 3, Total Protein 7.4, Albumin 3.4, Globulin 4.0, Lipase 45, Serum , Qual NEGATIVE Imaging Radiology Impression Abdomen/Pelvis CT 04/21/23 04:14 IMPRESSION: 1. Findings highly consistent with early acute cholecystitis. Prominently distended gallbladder with large stone deep in the neck and at least borderline 3 mm gallbladder wall. Slight surrounding haziness. 2. Mildly dilated central intrahepatic and extrahepatic ducts, no visible filling defect. 3. Consider ultrasound if not recently performed. 4. Dominant follicle in the right ovary. Electronically Signed: Belen Beltrán MD at 5:55 EST , Gallbladder Ultrasound 04/21/23 05:59 IMPRESSION: Distended gallbladder with large gallbladder neck stone and positive sonographic Morales''s. Findings can be seen with early cholecystitis or symptomatic cholelithiasis. Nuclear medicine hepatobiliary scan could further evaluate as clinically indicated. Biliary ductal dilatation and mild pancreatic ductal dilatation. Correlate with biliary labs or evidence of obstruction. MRCP could better evaluate distal common bile duct as indicated. Electronically Signed: Nick Myers MD at 7:40 EST , Assessment & Plan Assessment/Plan (1) Acute calculous cholecystitis: PLAN: The patient presented with abdominal pain and had a CT scan with suggested possible gallstone. She had subsequent ultrasound which showed gallstone in the neck of the gallbladder. The patient also had some mildly dilated biliary ducts. Her LFTs are normal. Patient did have elevated white count with left shift. I discussed acute cholecystitis with the patient. I discussed laparoscopic cholecystectomy with her as well. I discussed the procedure in detail with the patient. I discussed the risks, benefits, and alternatives of the procedure. I discussed the risks including but not limited to bleeding, infection, injury to surrounding organs such as the liver, bile duct, bowels. I did discuss the possibility of having to convert to an open procedure as well as the possibility that if any injuries occurred this may necessitate further surgery at a tertiary care center. I did discuss the cholangiograms and possibility of common duct stone. Patient understands and I will take her for surgery tomorrow morning. I will start her on IV antibiotics and keep her on sips and chips until midnight. Michael Patel MD Pager: [facility] [address] [place] [address], [address] [place] [address] Office:
[2023-04-22] VITALS (10 sets, daily range): BP systolic 101–136; BP diastolic 61–92; PULSE 81–95; RESP 16–18; TEMP 36.8–37.1; O2SAT 96–99; BMI 30.7
[2023-04-22] MEDS: Morphine 2 MG/ML Syringe IV ×2 (02:53→07:57)
[2023-04-22] MEDS: 0.9% Normal Saline (1000mL) 1,000 ML 125 ML IV (05:30)
[2023-04-22] MEDS: metroNIDAZOLE 500 MG/100 ML BAG 100 MG IV ×2 (05:33→14:04)
[2023-04-22 05:37] LABS: Absolute Neutrophil Count 17.8 X10^3/uL (2.0-7.7); Basophil# 0.04 X10^3/uL; Basophil% 0.2 % (0-1); Eosinophil# 0.14 X10^3/uL; Eosinophils% 0.7 % (0-5); Hematocrit 35.1 % (37-47); Hemoglobin 11.1 g/dL (12.0-15.0); Lymphocyte % 6.4 % (19-41); Mean Corp Hgb Conc 31.6 g/dL (32-36); Mean Corpuscular Hgb 25.4 pg (27.0-32.0); Mean Corpuscular Volume 80.3 fL (81-99); Mean Platelet Vol. 8.4 fl (6.2-12.0); Monocyte% 4.4 % (0-10); NRBC Flagged by Analyzer 0 % (0-5); Neutrophil # 17.77 X10^3/uL (2.7-7.7); Neutrophil % 87.7 % (47-70); Platelet Count 503 K/mm3 (150-450); RBC Distribution Width CV 14.6 % (11.6-14.6); RBC Distribution Width SD 42.5 fl (35.1-43.9); Red Blood Count 4.37 M/mm3 (4.2-5.4); White Blood Count 20.3 K/mm3 (4.4-11.0)
[2023-04-22 05:52] LABS: Anion Gap 6 (5-15); BUN 4 mg/dL (7-18); BUN/Creat Ratio 6.3 RATIO (10-20); Calcium,Total 8.3 mg/dL (8.5-10.1); Chloride 108 mmol/L (98-107); Creatinine, Serum 0.63 mg/dL (0.55-1.02); EST Glomerular Filtration Rate 114 mL/min (>60); Est Glom Filt Rate - Afr Amer 138 mL/min (>60); Estimated Creatinine Clearance 120.35 ml/min; Glucose 127 mg/dL (74-106); Potassium 3.9 mmol/L (3.5-5.1); Sodium Level 136 mmol/L (136-145)
[2023-04-22] MEDS: 0.9% Saline Lock 10 ML Syringe IV ×2 (07:57→10:42)
--- NOTE | 2023-04-22 08:01 | NURSING ---
Taken via bed to surgery at this time.
--- NOTE | 2023-04-22 08:10 | RAD_ITS ---
CLINICAL HISTORY: Female, 32 years old. Right upper quadrant pain, nausea, cholecystectomy PROCEDURE: CHOLANGIOGRAM - intraoperative CONSENT: Informed consent obtained SEDATION: General FLUOROSCOPY TIME (if supplied): (19) seconds, radiation dose of 9.86 mGy Placement of the catheter and the procedure were performed by: Michael Patel MD Fluoroscopy was provided by Elizabeth Alaniz, who was present in the room time of the procedure. A cine loop of 137 C-arm films were obtained TECHNIQUE: (All elements of maximal sterile barrier technique followed, including US elements as applicable) After the gallbladder was removed, the cystic duct was cannulized and contrast injected. There is marked dilatation of the cystic duct, common bile duct and intrahepatic ducts. However there is free flow of contrast into the duodenum. There is no filling defect to suspect a retained stone. There is no extravasation of contrast to suspect a bile leak. RAD/Cholangiogram/ O R,Initial IMPRESSION: No evidence of retained stone or bile leak. The biliary tree is abnormally dilated, but there is free flow of contrast into the duodenum Electronically Signed: Booker Ha MD at 9:00 EST ,
[2023-04-22] MEDS: Bupivacaine 0.25% 30 ML Vial (09:12)
--- NOTE | 2023-04-22 09:50 | OP.PCM_ITS ---
Report of Operation Date of Procedure: 04/22/23 Pre-Operative Diagnosis: Acute cholecystitis Post-Operative Diagnosis: Same Surgery/Procedure Performed:: Laparoscopic cholecystectomy with cholangiogram Description of Surgical Findings:: Inflamed gallbladder with large stone. Normal IOC Type of Anesthesia: General/Regional Specimen's removed: Gallbladder Estimated Blood Loss (mL): 20 Description of Procedure: After obtaining informed consent patient was brought back to the operating room. General anesthesia was induced. The abdomen was prepped and draped in usual sterile fashion. A small midline incision was made superior to the umbilicus and deepened to the level of fascia. The fascia was elevated and incised. Next the peritoneum was elevated and incised in the same fashion. Finger sweep was performed and the Roche trocar was placed into the abdomen. The balloon was inflated. The abdomen was inflated to 15 mmHg. Next a camera was introduced into the abdomen and the abdomen was inspected. Next under direct visualization three 5-mm ports were placed one subxiphoid and 2 subcostal. Next the gall bladder was elevated and retracted toward the right shoulder. The peritoneum was stripped from the gallbladder. The infundibulum was located and retracted laterally. Next the triangle of Calot was dissected and the cystic duct and cystic artery were identified. Cholangiograms were performed. The Dickens clamp was used to clamp across the infundibulum and the catheter needle was inserted into the gallbladder. Under fluoroscopy contrast was instilled into the gallbladder and the common duct, cystic duct as well as proximal hepatic ducts were identified. There was good filling of the duodenum. There were no filling defects noted in the common bile duct. The clamp was removed as well as the needle and the infundibulum was grasped once more. Three hemolock clips were placed across the cystic duct. The cystic duct was then divided leaving 2 clips on the stump. The cystic artery was clipped and divided in the same fashion. The hook cautery was then used to take the gallbladder off of the gallbladder bed. Hemostasis was obtained. Gallbladder fossa was irrigated and no active bleeding or bile leakage was noted. Next the camera was introduced in the subxiphoid port. An Endopouch bag was placed through the umbilical port and the gallbladder was placed into it. The gallbladder was then removed through the umbilical incision. The camera was then reinserted through the umbilical port. The gallbladder fossa was inspected once more and noted to be hemostatic with no leaking bile. The abdomen was suctioned dry. The 5 mm ports were removed under direct visualization. The umbilical port was then removed and the air was removed from the abdomen. Next using an 0 Vicryl suture the umbilical fascia was closed in a [id number] fashion. The umbilical port site was irrigated local anesthetic was administered to all the incisions. All the incisions were closed with interrupted subcuticular 4-0 Monocryl sutures followed by Steri- Strips and dressings. The patient was awoken and taken to PACU in stable condition. Admit VTE Documentation VTE Mechan Device Prophylaxis: SCD's
--- NOTE | 2023-04-22 09:51 | DCINST_ITS ---
Discharge Instructions Procedure Gallbladder Diet Discharge Diet: Light diet - advance as tolerated Activity Discharge Activity: May Not Drive (for 2-3 days or while taking narcotic pain medications.) May shower in (days): 1 Lifting Restrictions: 20 lbs for 2 weeks Additional Activity Instructions:: Pain medication may cause nausea. You should typically eat light foods as you take your pain medications. Pain medication may also cause constipation. If this is a problem for you, please discuss with your doctor. Dressing / Incision Call your doctor if your incision/area has: Continuous Slow Oozing, Sudden Increased Bleeding, Increased Pain/ Swelling, Increased Redness and Foul Smelling Discharge Call your doctor if you observe: Fever of 101 or Higher Suture Line Care: Avoid Pulling/Pushing and Avoid Pinching/Bending Remove Dressing in: 2 days (Remove clear bandages in 2 days, remove steri strips in 7-10 days) Cleanse incision/area with: Soap & Water Additional Dressing/Incision Instructions:: Leave operative bandaids on for 2 days. When you remove dressing, leave Steri-Strips on until your follow-up appointment, or until the Steri-Strips fall off on their own. Follow Up Care Please Follow Up With: Michael Patel MD When: Please call to schedule 2 week follow up appointment. [phone] Test Results: Test results from this visit will be discussed in further detail at your follow- up appointment, if applicable. Discharge Plan Admission Admit Date/Time: 04/21/23 07:53 Attending Provider: Michael Patel Primary Care Provider: Ranjeet Bernard Instructions Additional Instructions / Restrictions: Alternate ibuprofen and Tylenol for pain, oxycodone for breakthrough pain Discharge Orders/Prescriptions Prescriptions: New acetaminophen 325 mg Tablet 650 mg PO Q4H PRN PRN (Reason: Pain Or Fever) Qty: 0 0RF oxycodone 5 mg Tablet 5 mg PO Q4H PRN PRN (Reason: Pain Score 4-10/10) 3 Days Qty: 10 0RF No Action famotidine 40 mg tablet 40 mg PO DAILY Eliquis 5 mg tablet 5 mg PO BID Qty: 180 3RF aspirin 81 mg tablet,chewable 81 tab PO DAILY Qty: 90 3RF atorvastatin 40 mg tablet 40 mg PO QHS Qty: 90 3RF Brilinta 90 mg tablet 90 mg PO BID Qty: 180 3RF carvedilol [Coreg] 3.125 mg tablet 3.125 mg PO BID Qty: 180 3RF Rx Instructions: must administer with a meal/food PNV cmb#95-ferrous fumarate-FA 28 mg iron- 800 mcg tablet 1 tab PO DAILY Spiriva Respimat 2.5 mcg/actuation mist 2 puff inhalation DAILY Patient Comments: Take 2 (TWO) puffs once DAILY Referrals / Follow Up: Ranjeet Bernard MD [Primary Care Provider] - Disposition Disposition (needs filled in before D/C Order can be placed): Home, Self Care
[2023-04-22] MEDS: Ondansetron 4 MG/2 ML Vial IV (10:39)
[2023-04-22] MEDS: Ketorolac 15 MG/ML Vial IV (10:40)
[2023-04-22] MEDS: Ciprofloxacin 400 MG/200 ML BAG 200 MG IV (10:41)
== END 2023-04-22 16:52 | disposition home or self-care (01) ==
LOC: ED 07:26 → MS3 12:15 → ED 14:48 → MS3 14:52
PROVIDERS: Emergency Medicine; Admitting Provider Surgery; Emergency Provider Emergency Medicine; PCP Family Medicine; Visit Provider Surgery
PROC: (CPT 47610; principal; 2023-04-22 07:40)
DX: K80.12 Calculus of gallbladder with acute and chronic cholecystitis without obstruction (principal); I25.5 Ischemic cardiomyopathy; I25.10 Atherosclerotic heart disease of native coronary artery without angina pectoris; Z79.01 Long term (current) use of anticoagulants; Z79.82 Long term (current) use of aspirin; Z79.899 Other long term (current) drug therapy; J45.909 Unspecified asthma, uncomplicated; I25.2 Old myocardial infarction; F17.210 Nicotine dependence, cigarettes, uncomplicated
CPT/HCPCS: 47563; 00790; 74177; 74300; 76000; 76705; 80048; 80076; 83690; 84484; 84703; 85025; 88304; 93005; 96361; 96365; 96366; 96367; 96375; 96376; 99221; 99283; 99406; J7030; Q9967; A4216; G0378; J0744; J2405

== ENCOUNTER → 2024-02-27 | Outpatient (CLI) | payer MEDICAID, SELFPAY ==
[2021-05-28 09:41] VITALS: BMI 30.4
--- NOTE | 2024-02-27 14:36 | RAD_ITS ---
STUDY: X-RAY - RIGHT SHOULDER REASON FOR EXAM: Female, 33 years old. PAIN TECHNIQUE: 4 views of the right shoulder. COMPARISON: None. FINDINGS: Normal glenohumeral articulation. Normal acromioclavicular joint. Normal acromion. Normal humeral head and visualized proximal humerus. The soft tissue structures are unremarkable. There is no demonstrated fracture. Normal visualized pulmonary apex. RAD/Shoulder min 2 Views IMPRESSION: Normal x-ray examination of the right shoulder. Electronically Signed: J Luis Lopez MD at 14:39 EST ,
--- NOTE | 2024-02-27 14:37 | RAD_ITS ---
HISTORY: CHEST DISCOMFORT. TECHNIQUE: XR Spine Thoracic 2 Views. COMPARISON: None. FINDINGS: VERTEBRAE: Vertebral body heights maintained. No acute fracture identified. ALIGNMENT: No significant anterior or posterior subluxation. INTERVERTEBRAL DISCS: Preservation of intervertebral disc spaces. SOFT TISSUES: Unremarkable paraspinal soft tissues. RAD/Thoracic Spine 2 Views IMPRESSION: No acute fracture or dislocation identified in the thoracic spine. Electronically Signed: Lelo Moore MD at 10:06 [facility] ,
--- NOTE | 2024-02-27 14:37 | RAD_ITS ---
HISTORY: NECK STRAIN. TECHNIQUE: XR Spine Cervical 4 or 5 Views. COMPARISON: None. FINDINGS: VERTEBRAE: Chronic appearing minimal anterior wedging of the C5, C6, and C7 vertebral bodies. No acute fracture identified. ALIGNMENT: No significant anterior or posterior subluxation. Straightening of the cervical lordosis. INTERVERTEBRAL DISCS: Mild degenerative endplate changes with osteophytes of C6/7. Other vertebral disc heights maintained. SOFT TISSUES: No significant prevertebral soft tissue swelling. RAD/Cerv Spine 4 or 5 Views IMPRESSION: No acute fracture or dislocation identified in the cervical spine. Mild spondylosis of C6-7. Electronically Signed: Lelo Moore MD at 9:57 EST ,
== END | disposition home or self-care (01) ==
LOC: MTRAD 14:35
PROVIDERS: PCP Family Medicine; Referring Provider Family Medicine; Visit Provider Family Medicine
DX: M25.511 Pain in right shoulder (principal); S16.1XXA Strain of muscle, fascia and tendon at neck level, initial encounter; R07.89 Other chest pain
CPT/HCPCS: 72050; 72070; 73030

== ENCOUNTER 2024-03-19 11:46 | Observation (INO) | payer MEDICAID, SELFPAY ==
[2021-05-28 09:41] VITALS: BMI 30.4
[2024-03-19] VITALS (8 sets, daily range): BP systolic 104–132; BP diastolic 64–88; PULSE 69–88; RESP 14–18; TEMP 36.6–37.1; O2SAT 96–99; BMI 31.4; BMI 30.3
--- NOTE | 2024-03-19 11:50 | EKG12_ITS ---
Test Reason : NEURO Blood Pressure : */* mmHG Vent. Rate : 71 BPM Atrial Rate : 71 BPM P-R Int : 138 ms QRS Dur : 68 ms QT Int : 436 ms P-R-T Axes : 49 38 41 degrees QTcB Int : 473 ms Normal sinus rhythm Low voltage QRS Borderline ECG Confirmed by SOMMER THOMSON, VENKAT ([id number]), story editor BRIDGET RM ([id number]) on 03/21/2024 6:36:27 AM Referred By: Confirmed By: VENKAT NOVOA MD
--- NOTE | 2024-03-19 11:50 | CT_ITS ---
PROCEDURE: STROKE BRAIN/HEAD WITHOUT CONT REASON FOR EXAM: Stroke-like symptoms TECHNIQUE: Head CT without intravenous contrast. COMPARISON: None. FINDINGS: There is no acute intracranial hemorrhage, mass effect, or evidence of large acute infarct. Brain: Normal CSF Spaces: Normal Sinuses/Mastoids: Partial opacification of the left maxillary sinus. That is Bones: Unremarkable CT/STROKE Brain/Head without Cont IMPRESSION: NO ACUTE FINDINGS One or more dose reduction techniques were used (e.g., Automated exposure contr ol, adjustment of the mA and/or kV according to patient size, use of iterative reconstruction technique). Reading Location: [place] [address]
--- NOTE | 2024-03-19 11:51 | CT_ITS ---
PROCEDURE: STROKE CTA HEAD AND NECK W/CON REASON FOR EXAM: Possible stroke. TECHNIQUE: CTA imaging of the head and neck from the aortic arch to the skull vertex with intravenous contrast. 3D reconstructions. CONTRAST: 100 cc of Isovue-300 COMPARISON: None. # of known CTs in the past 12 months: 0 # of known Cardiac Nuclear Medicine Studies in the past 12 months: 0 FINDINGS: Aortic Arch: Normal size and branching pattern. No significant atherosclerotic plaque. Brachiocephalic and Subclavians: Unremarkable RIGHT Carotid: Right CCA: Unremarkable. Right ICA: Unremarkable. Maximum stenosis (NASCET): % Right ECA: Unremarkable. LEFT Carotid: Left CCA: Unremarkable. Left ICA: Unremarkable. Maximum stenosis (NASCET): % Left ECA: Unremarkable. Vertebrals: Codominant. Arise from the subclavians. Both vertebrals form the basilar. RIGHT Vertebral: Unremarkable. LEFT Vertebral: Unremarkable. No intracranial aneurysms or large vascular malformations are identified. Anterior cerebral arteries: Unremarkable. Middle cerebral arteries: Unremarkable. Basilar artery: Unremarkable. Posterior cerebral arteries: Unremarkable. Other major branches of the posterior circulation: Unremarkable. Major venous structures: Unremarkable. Other findings: No lymphadenopathy. Lung apices are clear. Bones are unremarkable. CT/STROKE CTA Head AND Neck W/Con IMPRESSION: No acute abnormality is seen. One or more dose reduction techniques were used (e.g., Automated exposure contr ol, adjustment of the mA and/or kV according to patient size, use of iterative reconstruction technique). Reading Location: [place] [address]
--- NOTE | 2024-03-19 11:59 | ED.RN ---
called [facility] once pt. back in room. they states they are having a hard time getting ahold of neurologist.
--- NOTE | 2024-03-19 12:08 | ED.RN ---
cough x 1 week. Yellow /green sputum
[2024-03-19 12:09] LABS: Absolute Lymphocyte Count 3.72 X10^3/uL (0.83-4.51); Absolute Neutrophil Count 13.1 X10^3/uL (2.0-7.7); Basophil# 0.03 X10^3/uL; Basophil% 0.2 % (0-1); Eosinophil# 0.29 X10^3/uL; Eosinophils% 1.6 % (0-5); Hematocrit 36.7 % (37-47); Hemoglobin 11.9 g/dL (12.0-15.0); Lymphocyte # 3.72 X10^3/ul (0.83-4.51); Lymphocyte % 20.6 % (19-41); Mean Corp Hgb Conc 32.4 g/dL (32-36); Mean Corpuscular Hgb 26.2 pg (27.0-32.0); Mean Corpuscular Volume 80.8 fL (81-99); Mean Platelet Vol. 8.7 fl (6.2-12.0); Monocyte# 0.86 X10^3/uL; Monocyte% 4.8 % (0-10); NRBC Flagged by Analyzer 0 % (0-5); Neutrophil # 13.07 X10^3/uL (2.7-7.7); Neutrophil % 72.1 % (47-70); Platelet Count 553 K/mm3 (150-450); RBC Distribution Width CV 14.5 % (11.6-14.6); RBC Distribution Width SD 42.5 fl (35.1-43.9); Red Blood Count 4.54 M/mm3 (4.2-5.4); White Blood Count 18.1 K/mm3 (4.4-11.0)
--- NOTE | 2024-03-19 12:13 | EX.ED.DYSGE1 ---
HPI History of Present Illness Chief Complaint: Stroke Alert Narrative Narrative: Patient is a 33-year-old female with a past medical history of STEMI, asthma, tobacco abuse who presents to the emergency department via EMS with a chief complaint of left-sided weakness. According to EMS her last known well was 11:20 AM. When they arrived she was unable to move her left leg and left arm they noted slurred speech with facial droop as well. They state that she has appeared to start to improve while in route. They noted that her glucose was noted to be 80. They state that she does not take her medications daily as prescribed. [facility] Medical History Ischemic cardiomyopathy Tobacco abuse ST elevation myocardial infarction (STEMI) of anterior wall (03/11/21) Atherosclerosis of coronary artery without angina pectoris Asthma Home Medications ?Medication ?Instructions ?Recorded ?Last Taken ?Type apixaban 5 mg tablet (Eliquis) 5 mg PO BID #180 tabs 03/23/21 Unknown Rx aspirin 81 mg chewable tablet 81 tab PO DAILY #90 tabs 03/23/21 Unknown Rx atorvastatin 40 mg tablet 40 mg PO QHS #90 tabs 03/23/21 Unknown Rx carvedilol 3.125 mg tablet (Coreg) 3.125 mg PO BID #180 tabs 03/23/21 Unknown Rx famotidine 40 mg tablet 40 mg PO DAILY 03/23/21 Unknown History ticagrelor 90 mg tablet (Brilinta) 90 mg PO BID #180 tabs 03/23/21 Unknown Rx vit no.95-ferrous 1 tab PO DAILY 05/05/21 Unknown History fumarate 28 mg-folic acid 800 mcg tablet tiotropium bromide 2.5 2 puff inhalation DAILY 05/05/21 Unknown History mcg/actuation mist for inhalation acetaminophen 325 mg tablet 650 mg (2 x 325 mg) PO Q4H PRN PRN 04/22/23 Unknown Rx Pain Or Fever #0 tabs Allergy/AdvReac Type Severity Reaction Status Date / Time amoxicillin Allergy Rash Verified 03/19/24 12:07 Penicillins Allergy Rash Verified 03/19/24 12:07 Family History Father , age 68 CAD (coronary artery disease) had ICD Surgical History History of coronary artery stent placement (03/11/21) Social History current occupational status: disabled Smoking Status: Current every day smoker tobacco type: cigarettes alcohol intake: never substance use type: does not use caffeine: Yes Type: carbonated beverages, coffee and tea additional social history: completed 9th grade, working on [employer] ROS ED ROS Narrative Constitutional: Denies any fevers, chills, headaches, lightness, dizziness Eyes: Denies change in vision double vision blurry vision Cardiovascular: Denies chest pain Respiratory: Denies coughing wheezing shortness of breath Abdomen: Denies abdominal pain nausea vomit diarrhea : Denies any urinary symptoms Neurological: Complains of left-sided weakness as noted above as well as facial droop and slurred speech however is improving Musculoskeletal: Denies back pain Skin: Denies any rashes or lesions EXAM Physical Exam Narrative Exam Narrative: General: Patient was lying in bed rest comfortably did not appear to be acute distress Head: Atraumatic, normocephalic Eyes: PERRL bilaterally, EOMI bilaterally, no conjunctival injection noted Neck: Soft, supple, trachea midline Cardiovascular: Regular rate and rhythm no murmurs gallops rubs noted Respiratory: Clear to auscultation bilaterally no rales rhonchi or wheezes noted Abdomen: Soft, nondistended, nontender to palpation Extremities: +4/5 strength noted in the bilateral upper and lower extremities, radial pulses +2/4 in the bilateral extremities, no pedal edema on exam Neurological: Patient following commands knew that she was at [facility] year is 2024. NIH of 0 GCS 15 Skin: Warm, dry, intact no rashes or lesions noted Const Vital Signs: 03/19/24 11:47 03/19/24 12:01 03/19/24 12:01 Temperature 98.7 F 97.8 F Temperature Source Oral Oral Pulse Rate 84 77 Respiratory Rate 18 14 Blood Pressure 132/70 H 127/78 H Blood Pressure Mean 90 94 Pulse Ox 98 99 Oxygen Delivery Method Room Air Room Air Room Air 03/19/24 12:30 Temperature Temperature Source Pulse Rate 77 Respiratory Rate 18 Blood Pressure 107/64 Blood Pressure Mean 78 Pulse Ox 98 Oxygen Delivery Method Room Air MDM MDM MDM Narrative Medical decision making narrative: Patient is a 33-year-old female who presented to the emergency department with a chief complaint of left-sided hemiparesis, slurred speech, facial droop. Patient's last known well once again was around 11:20 AM this morning. Patient's symptoms do appear to be proving therefore she would not be a tenecteplase candidate. On the differential diagnose includes but not limited to ischemic stroke, hypoglycemia, hemorrhagic stroke, TIA. Once the workup is obtained reviewed she will be reevaluated. Patient CBC was significant leukocytosis of 18,000 however is chronically elevated, hemoglobin is 11.9, platelet count was 553. Patient's INR was normal at 0.9, PT of 12.4. Patient sodium was 139, potassium was mildly low at 3.1 show given 40 mill equivalents of oral supplementation, creatinine was 1.09. Patient's troponin was elevated 1561. Patient's not have any chest pain and EKG was reviewed and independently interpreted myself showed sinus rhythm with a rate of 71 bpm. Patient's chest x-ray was reviewed by myself and by radiology showed no acute cardiopulmonary processes. Patient's CT head and brain without contrast showed no acute findings and CTA head and neck as well reviewed showed no acute abnormalities. Teleneurology Dr. Stallworth evaluated the patient and stating she will need admitted for MRI for TIA versus complex migraine. Patient be given 325 mg of aspirin. Patient states that she has not been taking her prescribed medications for some time she cannot tell me exactly how long. Patient was having a headache she will be given Tylenol for headache. Patient's case will be discussed with hospitalist for admission. Discussed case with hospitalist Dr. Welsh who will admit the patient for observation for further workup. Patient was notified she is agreeable this plan all question concerns answered. Lab Data Labs: Laboratory Results - last 24 hr 03/19/24 11:18 WBC 18.1 H RBC 4.54 Hgb 11.9 L Hct 36.7 L MCV 80.8 L MCH 26.2 L MCHC 32.4 RDW Std Deviation 42.5 RDW Coeff of Elke 14.5 Plt Count 553 H MPV 8.7 Immature Gran % (Auto) 0.700 Neut % (Auto) 72.1 H Lymph % (Auto) 20.6 Griggs % (Auto) 4.8 Eos % (Auto) 1.6 Baso % (Auto) 0.2 Absolute Neuts (auto) 13.1 H Absolute Lymphs (auto) 3.72 Nucleated RBC % 0 PT 12.4 INR 0.9 APTT 28.7 Sodium 139 Potassium 3.1 L Chloride 108 H Carbon Dioxide 24.0 Anion Gap 8 BUN 6 L Creatinine 1.09 H Estim Creat Clear Calc 69.67 Est GFR (MDRD) Af Amer 73 Est GFR (MDRD) Non-Af 61 BUN/Creatinine Ratio 5.5 L Glucose 105 Calcium 8.6 Troponin I High Sens 1561 H* Radiography Diagnostic Testing: Clinical Impression(s) from Imaging Studies Brain CT 03/19/24 11:50 IMPRESSION: NO ACUTE FINDINGS One or more dose reduction techniques were used (e.g., Automated exposure control, adjustment of the mA and/or kV according to patient size, use of iterative reconstruction technique). Reading Location: [place] [id number] Head/Neck CTA 03/19/24 11:51 IMPRESSION: No acute abnormality is seen. One or more dose reduction techniques were used (e.g., Automated exposure control, adjustment of the mA and/or kV according to patient size, use of iterative reconstruction technique). Reading Location: [place] [id number] Chest X-Ray 03/19/24 12:45 IMPRESSION: No evidence of acute cardiopulmonary disease. Negative examination. Reading Location: [id number] Discharge Plan Triage Chief Complaint: Stroke Alert ED Provider: Gerry Castle Dx/Rx/DC Orders Clinical Impression: Dysarthria, Acute left-sided weakness, Headache Primary Care Provider: Ranjeet Bernard Disposition Disposition: [facility]
[2024-03-19 12:23] LABS: International Normalized Ratio 0.9; Prothrombin Time (Protime)PT. 12.4 SECONDS (11.7-14.9)
[2024-03-19 12:24] LABS: Partial Thromboplast Time 28.7 Seconds (24.1-36.2)
[2024-03-19 12:36] LABS: Anion Gap 8 (5-15); BUN 6 mg/dL (7-18); BUN/Creat Ratio 5.5 RATIO (10-20); Calcium,Total 8.6 mg/dL (8.5-10.1); Chloride 108 mmol/L (98-107); Creatinine, Serum 1.09 mg/dL (0.55-1.02); EST Glomerular Filtration Rate 61 mL/min (>60); Est Glom Filt Rate - Afr Amer 73 mL/min (>60); Estimated Creatinine Clearance 69.67 ml/min; Glucose 105 mg/dL (74-106); Potassium 3.1 mmol/L (3.5-5.1); Sodium Level 139 mmol/L (136-145); Troponin-I HS 1561 pg/mL (3.0-54.0)
--- NOTE | 2024-03-19 12:45 | RAD_ITS ---
PROCEDURE: CHEST PA AND LATERAL REASON FOR EXAM: Stroke protocol TECHNIQUE: Single frontal image including the chest and abdomen. COMPARISON: None. FINDINGS: The cardiothymic contour is normal. The lungs are clear. Bowel gas pattern is normal. No evidence of bowel obstruction or free air. The bones are unremarkable. No radiopaque foreign body is identified. RAD/Chest PA and Lateral IMPRESSION: No evidence of acute cardiopulmonary disease. Negative examination. Reading Location: [id number]
--- NOTE | 2024-03-19 13:03 | ECHOD_ITS ---
Reason For Study: TIA/CVA Procedure This was a 2D Doppler, Color Flow transthoracic echocardiogram. Exam performed portable in patient room. Left Ventricle Normal LV size. The estimated ejection fraction is 65 %. No evidence for diastolic dysfunction. No regional wall motion abnormalities noted. Right Ventricle Normal RV size. Normal systolic function. Atria The left and right atria are normal. Bubble contrast study is negative for PFO/ASD. Mitral Valve There is no mitral valve stenosis. Trivial mitral valve insufficiency. Tricuspid Valve There is no tricuspid stenosis. Trivial tricuspid valve insufficiency. Unable to estimate RV systolic pressure due to insufficient tricuspid regurgitant envelope. Aortic Valve Trisinus/trileaflet aortic valve. There is no aortic stenosis. No aortic valve insufficiency. Pulmonic Valve There is no pulmonic valvular stenosis. No pulmonic valve insufficiency. Great Vessels Normal aortic root. Pericardium/Pleural No pericardial effusion. Medication Performed a rapid injection of agitated mix of 9 cc saline and 1cc air to assess for atrial septal defect. MMode/2D Measurements & Calculations LVIDd: 4.8 cm IVSd: 0.78 cm Ao root diam: 2.6 cm LVIDs: 3.6 cm LVPWd: 0.75 cm RVDd: 3.1 cm FS: 24.6 % LAV(MOD-bp): 31.1 ml LVAd ap4: 23.2 cm2 SV(MOD-sp4): 34.1 ml LAV(MOD-bp) Indexed: 17.4 ml/m2 LVLd ap4: 7.1 cm SI(MOD-sp4): 19.1 ml/m2 LAV(MOD-sp2): 32.4 ml EDV(MOD-sp4): 63.2 ml LAV(MOD-sp4): 27.2 ml EDV(sp4-el): 63.7 ml LVAs ap4: 13.5 cm2 LVLs ap4: 5.4 cm ESV(MOD-sp4): 29.1 ml ESV(sp4-el): 28.3 ml EF(MOD-sp4): 53.9 % EF(sp4-el): 55.5 % SV(sp4-el): 35.4 ml LA A4 area: 12.6 cm2 LA dimension(2D): 3.2 cm RA A4 area: 10.4 cm2 TAPSE: 1.7 cm Time Measurements MV dec time: 0.17 sec Doppler Measurements & Calculations MV E max den: 77.3 cm/sec Lat Peak E' Den: 18.7 cm/sec Med Peak E' Den: 11.4 cm/sec MV A max den: 70.0 cm/sec E/E' lat: 4.1 E/E' med: 6.8 MV E/A: 1.1 MV V2 max: 88.8 cm/sec MV P1/2t max den: 88.8 cm/sec Ao V2 max: 136.4 cm/sec MV max P.2 mmHg MV P1/2t: 58.0 msec Ao max P.4 mmHg MV V2 mean: 47.7 cm/sec MV dec slope: 448.3 cm/sec2 MV mean P.1 mmHg MVA(P1/2t): 3.8 cm2 MV V2 VTI: 22.7 cm LV V1 max: 114.6 cm/sec MR max den: 518.8 cm/sec PA V2 max: 105.9 cm/sec LV V1 max P.3 mmHg MR max P.7 mmHg PA V2 mean: 74.7 cm/sec TR max den: 227.7 cm/sec TR max P.7 mmHg ECHO/Echo Complete Interpretation Summary The estimated ejection fraction is 65 %. No evidence for diastolic dysfunction. Trivial mitral valve insufficiency. Ordering Physician: Bernard Welsh Performed By: Don Hurst RCS
--- NOTE | 2024-03-19 13:03 | MRI_ITS ---
PROCEDURE: BRAIN WITHOUT CONTRAST REASON FOR EXAM: Left-sided weakness, slurred speech with facial droop. TECHNIQUE: Multiplanar, multisequence MRI of the brain without intravenous gadolinium-based contrast. CONTRAST: No. COMPARISON: CT brain from 03/11/2024. FINDINGS: There is a small area of diffusion restriction in the right ascencio radiata as well as some small foci of diffusion restriction in the right parietal lobe and right temporal lobe relating to acute/subacute ischemic changes. No midl ine shift, mass effect, or acute intracranial hemorrhage is identified. Brain volume is age appropriate. The ventricles are not effaced or dilated. Corpus callosum, optic ch iasm, suprasellar cistern, and cerebellar tonsils are within normal range. Major vascular flow voids are present. Bilateral orb its are intact. There is mucosal thickening of the left maxillary sinus, right sphenoid sinus, and bilateral ethmoid sinuses. MRI/Brain without Contrast IMPRESSION: Acute/subacute ischemic changes involving the right ascencio radiata as well as f ew small foci of acute/subacute ischemic changes in the right parietal lobe and right temporal lobe. No midline shift, mass eff ect, or acute intracranial hemorrhage identified. Reading Location: [facility]
[2024-03-19] MEDS: Acetaminophen 500 MG Tablet 1000 MG PO (13:10)
[2024-03-19] MEDS: Aspirin 325 MG Tablet PO (13:11)
--- NOTE | 2024-03-19 13:16 | ED.RN ---
okay to change NIH scores to Q4hour per Dr. Castle
--- NOTE | 2024-03-19 13:19 | CHAPLAIN ---
Type of Pastoral Visit ___ Initial Visit ___ Follow-up Visit ___ On-call Visit ___ General Patient Visit ___ Spiritual Assessment ___ Family Conference ___ Bereavement _x__ Rapid Response ___ Code Blue ___ Other (describe below) Pastoral Care Referral From ___ Patient ___ Family ___ Nurse ___ Physician ___ Security System Analyst ___ Customer Experience Leader _x__ Other (describe below) Sacrament/Intervention ___ Active listening ___ Anointing ___ Rastafarian ___ Bereavement ___ Communion ___ Sarah exploration ___ ___ Life review ___ Prayer ___ Reconciliation ___ Sacrament of Sick _x__ Supportive presence ___ Wedding ___ Other (describe below) Pastoral Comments responded to stroke alert in ED; pt was taken immediately to CTScan; no family members were present and it was unknown if any would be coming;
--- NOTE | 2024-03-19 13:26 | CASEMGMT ---
Care Management Face to Face with patient for initial transition planning/care coordination assessment in the ED. This rewriter introduced self and role at [facility]. Patient alert, but patient having difficulty concentrating on assessment. Patient willing to participate in assessment and is able to answer all questions appropriately. Care providers, pharmacy, and demographics verified. Admitting Diagnosis: Dysarthria, Acute left-sided weakness Other diagnosis history: STEMI, asthma, tobacco abuse PCP: Dr. Ranjeet Bernard Specialists: none Preferred Pharmacy: [facility] Insurance: [employer] Prescription Benefit: yes Living Will/HPOA: patient denies having or needing information. Patient stated a desire to have patient's cousin make medical decisions for patient; patient was educated that patient's cousin would be unable to make those decisions unless HCPOA paperwork was filled out; patient continued to deny need because talking about it scares me. LNOK: 2 sisters, Mercy Huitron and Don Larose. 1 daughter, Tiffanie (6 years old). Living Arrangements: lives with cousin, Anabelle Huitron, cousins' daughter, Ramona Stapleton, and 6yo daughter. Lives in the basement of the home. 4 steps to enter main floor, full flight to enter patient's living area. 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 DME: none HHC: none SNF/Rehab: none Community Resources: none Behavioral Health History: patient denies formal diagnoses, but did report that years ago patient was told patient had high emotions and bigger reactions than most people. Patient goals: Patient wishes to discharge home, denies need for home health care at this time. Patient states she has no further needs or concerns at this time, though patient was confused for why patient was present in the [facility] ED today. Disposition Plan: admission to acute; RN CM/SW to follow for discharge planning needs that may arise. Shari Lawrence, COMMUNITY HEALTH NURSING DIRECTOR, PAPER DELIVERER
[2024-03-19] MEDS: Potassium Chloride Oral Tablet 20 MEQ 40 MEQ PO (16:35)
--- NOTE | 2024-03-19 17:31 | PCM.HP.STD ---
HPI - General General Date of Admission: 03/19/24 Date of Service: 03/19/24 Chief Complaint: Left-sided weakness, slurred speech HPI Narrative YURI DAVIS, is a 33 F who presents to the emergency room at [facility] with a sudden onset of left-sided weakness, she also complained of slurred speech. According to a family member who is with her at the time my examination, she stated that this episode lasted for approximately 30 minutes. A stroke team was called when she arrived in the emergency room, imaging studies were unremarkable and her NIH was 0. Teleneurology declined to administer tenecteplase. Patient has a past history of coronary artery disease but takes no medications-she stopped her medications on her own approximately 2 years ago and did not follow-up with her physician. Patient does smoke. Labs obtained in the emergency room showed an elevated white blood cell count at 18.1, hemoglobin was 11.9, chemistry profile was remarkable for a potassium of 3.1, creatinine was 1.09. Patient's troponin was 1561-patient had no complaints of any chest pain however. EKG showed a normal sinus rhythm without evidence of ischemia. Patient will be placed into observation status on PCU, and MRI of the brain will be obtained, echocardiogram will be obtained and she will be seen by speech therapy, PT and OT. I have elected to place her back on aspirin, she had been on Brilinta in the past but I do not believe she needs Brilinta at this time. [facility] Medical History Ischemic cardiomyopathy Tobacco abuse ST elevation myocardial infarction (STEMI) of anterior wall (03/11/21) Atherosclerosis of coronary artery without angina pectoris Asthma Home Medications ?Medication ?Instructions ?Recorded ?Last Taken ?Type apixaban 5 mg tablet (Eliquis) 5 mg PO BID #180 tabs 03/23/21 Unknown Rx aspirin 81 mg chewable tablet 81 tab PO DAILY #90 tabs 03/23/21 Unknown Rx atorvastatin 40 mg tablet 40 mg PO QHS #90 tabs 03/23/21 Unknown Rx carvedilol 3.125 mg tablet (Coreg) 3.125 mg PO BID #180 tabs 03/23/21 Unknown Rx famotidine 40 mg tablet 40 mg PO DAILY 03/23/21 Unknown History ticagrelor 90 mg tablet (Brilinta) 90 mg PO BID #180 tabs 03/23/21 Unknown Rx vit no.95-ferrous 1 tab PO DAILY 05/05/21 Unknown History fumarate 28 mg-folic acid 800 mcg tablet tiotropium bromide 2.5 2 puff inhalation DAILY 05/05/21 Unknown History mcg/actuation mist for inhalation acetaminophen 325 mg tablet 650 mg (2 x 325 mg) PO Q4H PRN PRN 04/22/23 Unknown Rx Pain Or Fever #0 tabs Allergy/AdvReac Type Severity Reaction Status Date / Time amoxicillin Allergy Rash Verified 03/19/24 12:07 Penicillins Allergy Rash Verified 03/19/24 12:07 Family History Father , age 68 CAD (coronary artery disease) had ICD Surgical History History of coronary artery stent placement (03/11/21) Social History current occupational status: disabled Smoking Status: Current every day smoker tobacco type: cigarettes alcohol intake: never substance use type: does not use caffeine: Yes Type: carbonated beverages, coffee and tea additional social history: completed 9th grade, working on [employer] Constitutional Constitutional: Denies anorexia, change in weight, chills, fatigue, fever(s), malaise, night sweats or weakness Eyes Eyes: Denies blurry vision, change in eye color, change in vision, discharge from eye(s) or eye pain Cardiovascular Cardiovascular: Denies chest pain, claudication, edema or palpitations Respiratory/Chest Respiratory/Chest: Denies cough, hemoptysis, shortness of breath at rest or shortness of breath with exertion Gastrointestinal Gastrointestinal: Denies abdominal pain, constipation, diarrhea, hematemesis, hematochezia, melena, nausea or vomiting Genitourinary Genitourinary: Denies dysuria, hematuria, urinary frequency, urinary hesitancy, urinary incontinence or urinary urgency Musculoskeletal Musculoskeletal: Denies back pain, joint pain, joint stiffness, joint swelling, myalgias or neck pain Neurologic Neurologic: Reports abnormal speech, focal weakness and paresthesias; Denies abnormal gait, dizziness, headache(s), loss of vision, numbness, other visual disturbances, syncope or tingling Psychiatric Psychiatric: Denies anxiety, cognitive impairment, depression, irritability, mood swings or suicidal ideation Endocrine Endocrinology: Denies change in body appearance, cold intolerance, excessive sweating, heat intolerance, polydipsia or polyuria Hematologic/Lymphatic Hematologic/Lymphatic: Denies none, anemia, easy bleeding, easy bruising or lymphadenopathy Allergic/Immunologic Allergic/Immunologic: Denies rhinitis, urticaria, eczemia or asthma Vital Signs Vital Signs Vital Signs: 03/19/24 11:47 03/19/24 12:01 03/19/24 12:01 Temperature 98.7 F 97.8 F Temperature Source Oral Oral Pulse Rate 84 77 Respiratory Rate 18 14 Respiratory Effort Respiratory Depth Respiratory Pattern Blood Pressure 132/70 H 127/78 H Blood Pressure Mean 90 94 Blood Pressure Source Blood Pressure Position Blood Pressure Location Pulse Ox 98 99 Oxygen Delivery Method Room Air Room Air Room Air 03/19/24 12:30 03/19/24 13:05 03/19/24 13:59 Temperature 98.2 F 98 F Temperature Source Oral Pulse Rate 77 82 69 Respiratory Rate 18 17 14 Respiratory Effort Respiratory Depth Respiratory Pattern Blood Pressure 107/64 107/88 H 104/83 H Blood Pressure Mean 78 94 90 Blood Pressure Source Monitor Blood Pressure Position Semi-Fowlers Blood Pressure Location Right Arm Pulse Ox 98 98 98 Oxygen Delivery Method Room Air Room Air 03/19/24 14:22 03/19/24 16:37 Temperature 97.9 F Temperature Source Temporal Pulse Rate 88 Respiratory Rate 18 Respiratory Effort Normal Non-Labored Respiratory Depth Normal Respiratory Pattern Normal Blood Pressure 116/86 H Blood Pressure Mean 96 Blood Pressure Source Monitor Blood Pressure Position Semi-Fowlers Blood Pressure Location Right Arm Pulse Ox 98 Oxygen Delivery Method Room Air Room Air Weight Weight: 77.7 kg Body Mass Index (BMI) 30.3 Physical Exam Const alert, oriented x3 and no apparent distress General Appearance: cooperative, well kempt and well developed Orientation / Consciousness: awake, oriented to person, oriented to place and oriented to time HEENT normocephalic and moist oral mucous membranes HEENT Narrative: Patient has poor dentition Eyes PERRL, EOMs intact bilaterally and conjunctivae normal Neck supple, no JVD, thyroid normal and no carotid bruits General: trachea midline Resp normal respiratory effort, no retractions, no use of accessory muscles and clear to auscultation bilaterally Auscultation: Negative for rales, rhonchi or wheezes Cardio regular rate, regular rhythm, S1 normal heart sound, S2 normal heart sound, no murmurs, no rub and no gallops GI normal to inspection, nondistended, normoactive bowel sounds, soft to palpation, non-tender and non-distended Extremity no clubbing, cyanosis or edema Skin no rashes or lesions noted General Skin Exam: no breakdown Neuro oriented x3, CN's II-XII intact bilaterally, moves all extremities and no focal motor deficits Neuro Narrative: There is decreased sensation to light touch on the patient's left forearm Sensorium / Orientation: awake and alert Speech: speech normal Psych affect normal Results Lab / Micro Data 03/19/24 11:18 03/19/24 11:18 Labs: Laboratory Results - last 24 hr 03/19/24 11:18: WBC 18.1 H, RBC 4.54, Hgb 11.9 L, Hct 36.7 L, MCV 80.8 L, MCH 26.2 L, MCHC 32.4, RDW Std Deviation 42.5, RDW Coeff of Elke 14.5, Plt Count 553 H, MPV 8.7, Immature Gran % (Auto) 0.700, Neut % (Auto) 72.1 H, Lymph % (Auto) 20.6, Bucks % (Auto) 4.8, Eos % (Auto) 1.6, Baso % (Auto) 0.2, Absolute Neuts (auto) 13.1 H, Absolute Lymphs (auto) 3.72, Nucleated RBC % 0, PT 12.4, INR 0.9, APTT 28.7, Sodium 139, Potassium 3.1 L, Chloride 108 H, Carbon Dioxide 24.0, Anion Gap 8, BUN 6 L, Creatinine 1.09 H, Estim Creat Clear Calc 69.67, Est GFR (MDRD) Af Amer 73, Est GFR (MDRD) Non-Af 61, BUN/Creatinine Ratio 5.5 L, Glucose 105, Calcium 8.6, Troponin I High Sens 1561 H* Imaging Radiology Impression Brain CT 03/19/24 11:50 IMPRESSION: NO ACUTE FINDINGS One or more dose reduction techniques were used (e.g., Automated exposure control, adjustment of the mA and/or kV according to patient size, use of iterative reconstruction technique). Reading Location: [facility] Head/Neck CTA 03/19/24 11:51 IMPRESSION: No acute abnormality is seen. One or more dose reduction techniques were used (e.g., Automated exposure control, adjustment of the mA and/or kV according to patient size, use of iterative reconstruction technique). Reading Location: [facility] Chest X-Ray 03/19/24 12:45 IMPRESSION: No evidence of acute cardiopulmonary disease. Negative examination. Reading Location: [id number] Assessment & Plan Assessment/Plan (1) Acute left-sided weakness: PLAN: Plan 1. Left-sided hemiparesis-resolved at this time, patient will be placed in observation status on PCU, she will continue 81 mg aspirin daily and atorvastatin 80 mg at bedtime, she will be seen by PT OT and speech therapy, MRI of the brain will be obtained. Echocardiogram will be obtained. #2 coronary artery disease-noncompliant with outpatient treatment, patient will remain on a statin, a baby aspirin, and I have placed her on a beta-mima. #3 elevated troponin-etiology unclear, patient has no history of chest pain recently including today, EKG shows no acute ischemic changes, I will repeat the troponin, it is possible that the troponin was elevated due to an acute ischemic stroke #4 past history of left ventricular apical thrombus-patient was noncompliant with Eliquis, echocardiogram will be obtained #5 hypokalemia-patient will be given potassium replacement, BMP will be repeated #6 leukocytosis-etiology unclear, it appears that the patient has a persistent leukocytosis on past labs that were drawn here at the hospital, she may need further workup as an outpatient to exclude hematological problem. Total clinical time spent by myself addressing the patient's medical issues, reviewing all of her data, and collaborating with the patient's care team: 75 minutes Charges/Coding Visit Charges Inpatient E&M: 99783 Init Hosp L3
[2024-03-19 18:47] LABS: Troponin-I HS 1214 pg/mL (3.0-54.0)
[2024-03-19] MEDS: Heparin Injection (Vial) 5,000 UNIT/ML VIAL 5000 UNIT SC (21:02)
[2024-03-19] MEDS: Acetaminophen 325 MG Tablet 650 MG PO (21:02)
[2024-03-19] MEDS: Atorvastatin Calcium 80 MG Tablet PO (21:09)
[2024-03-20] VITALS (8 sets, daily range): BP systolic 92–111; BP diastolic 60–72; PULSE 72–78; RESP 14–16; TEMP 36.7–36.9; O2SAT 94–98; BMI 30.3
[2024-03-20 07:02] LABS: Anion Gap 10 (5-15); BUN 8 mg/dL (7-18); BUN/Creat Ratio 9.4 RATIO (10-20); Calcium,Total 8.5 mg/dL (8.5-10.1); Chloride 107 mmol/L (98-107); Cholesterol 127 mg/dL (200); Creatinine, Serum 0.85 mg/dL (0.55-1.02); EST Glomerular Filtration Rate 80 mL/min (>60); Est Glom Filt Rate - Afr Amer 97 mL/min (>60); Estimated Creatinine Clearance 91.17 ml/min; Glucose 107 mg/dL (74-106); High Density Lipoprotein 33 mg/dL; Potassium 3.2 mmol/L (3.5-5.1); Sodium Level 140 mmol/L (136-145); Triglycerides 209 mg/dL; Very Low Density Lipoprotein 42 mg/dL (5-40)
[2024-03-20] MEDS: Aspirin 81 MG TAB.CHEW PO (08:43)
[2024-03-20] MEDS: Heparin Injection (Vial) 5,000 UNIT/ML VIAL 5000 UNIT SC (08:44)
[2024-03-20] MEDS: Famotidine 20 MG Tablet 40 MG PO (08:44)
--- NOTE | 2024-03-20 11:29 | CASEMGMT ---
SW completed a PHQ 9 with patient as she had a Stroke. Patient scored a 2 which indicates minimal depression. Patient denied any need for counseling resources. Delmy NAIK
--- NOTE | 2024-03-20 13:09 | STROKE.CONS ---
Assessment and Plan: Stroke Assessment/Plan YURI DAVIS is a 33 F with a history of CAD, STEMI, Ischemic Cardiomyopathy, LV Apical thrombus, Asthma, Tobacco use who presents with transient left arm and leg weakness, numbness, and headache, that has improved since arrival. She has been found to have a R Ascencio Radiata Acute Ischemic Stroke. Neurological examination shows NIHSS 1 for LUE numbness. Neuroimaging shows R Ascencio Radiata Stroke. - Stroke Etiology pending completion of workup - CTH with c/f stroke, CT Anio without proximal large vessel occlusion or high grade critical flow limiting stenosis, MRI with R Ascencio Radiata Stroke - TTE with Bubble pending, if PFO found, would recommend subsequent BLLE Duplex US to rule out DVT - She will need a cardiac event monitor (holter/ziopatch) after discharge - Recommend stroke in young hematologic workup: lupus anticoagulant, anti cardiolipin (IG G and IG M), anti beta 2 glycoprotein antibody (Ig G and IG M), Protein C, protein S, Factor V Leiden, anti thrombin III, Prothrombin 45018 mutation, ESR, CRP, Fibrinogen, PT/PTT; if abnormal values seen, recommend hematology evaluation - Anti-platelet/Anti-coagualation plan: Continue Aspirin 81 mg daily; patient reports noncompliance with other anticoagulants (prior med hx of Eliquis). Agree on holding Eliquis until TTE obtained to determine status of LVT. - Occupational/ Physical therapy consults - NPO until swallow evaluation. IVF until able to take po - DVT prophylaxis with SCDs and heparin SQ - Vascular risk factor modification. - LDL Goal < 70, LDL 51 - Smoking Cessation, counseling provided - Glycemic control, please obtain Hgb A1C - rectifying operator blood pressure control should achieve <130/80 mmHg. BP management should aim to achieve assisted contorl in a reasonable amount of time, taking into consideration the individual patient. - Weight Management: Goal for BMI is 18.5 -24.9 kg/m2 - Alcohol: No more than 2 drinks/day for men or 1 drink/day for non- women - Promote lifestyle modification: weight control, physical activity, moderation of alcohol intake, moderate sodium intake. Followup with PCP in 1-2 weeks, and in Neurology clinic in 6-12 weeks HPI Consult Data Date of Consult: 03/20/24 HPI Narrative HPI Narrative: YURI DAVIS is a 33 F with a history of CAD, STEMI, Ischemic Cardiomyopathy, LV Apical thrombus, Asthma, Tobacco use who presents with transient left arm and leg weakness, numbness, and headache, that has improved since arrival. She has been found to have a R Ascencio Radiata Acute Ischemic Stroke. She reports symptoms starting yesterday upon awakening and her cousin noticing them. She reports having currently been on antibiotics and steroids due to flu symptoms. She reports improvement of these symptoms. She reports headache in her entire head and notable L sided symptoms causing presentation to hospital. She now reports improvement in her symptoms. She states she had a heart attack almost 3 years ago and that is when they put her on 3 types of blood thinners, but she stopped them because of side effects and how she felt. She is unsure why she had a heart attack. She currently reports taking a vitamin, aspirin daily, and her current cold medications, otherwise is not taking any other medications. [facility], [facility] Medical History Ischemic cardiomyopathy Tobacco abuse ST elevation myocardial infarction (STEMI) of anterior wall (03/11/21) Atherosclerosis of coronary artery without angina pectoris Asthma Home Medications ?Medication ?Instructions ?Recorded ?Last Taken ?Type apixaban 5 mg tablet (Eliquis) 5 mg PO BID #180 tabs 03/23/21 Unknown Rx aspirin 81 mg chewable tablet 81 tab PO DAILY #90 tabs 03/23/21 Unknown Rx atorvastatin 40 mg tablet 40 mg PO QHS #90 tabs 03/23/21 Unknown Rx carvedilol 3.125 mg tablet (Coreg) 3.125 mg PO BID #180 tabs 03/23/21 Unknown Rx famotidine 40 mg tablet 40 mg PO DAILY 03/23/21 Unknown History ticagrelor 90 mg tablet (Brilinta) 90 mg PO BID #180 tabs 03/23/21 Unknown Rx vit no.95-ferrous 1 tab PO DAILY 05/05/21 Unknown History fumarate 28 mg-folic acid 800 mcg tablet tiotropium bromide 2.5 2 puff inhalation DAILY 05/05/21 Unknown History mcg/actuation mist for inhalation acetaminophen 325 mg tablet 650 mg (2 x 325 mg) PO Q4H PRN PRN 04/22/23 Unknown Rx Pain Or Fever #0 tabs Allergy/AdvReac Type Severity Reaction Status Date / Time amoxicillin Allergy Rash Verified 03/19/24 12:07 Penicillins Allergy Rash Verified 03/19/24 12:07 Family History Father , age 68 CAD (coronary artery disease) had ICD Surgical History History of coronary artery stent placement (03/11/21) Social History current occupational status: disabled Smoking Status: Current every day smoker tobacco type: cigarettes alcohol intake: never substance use type: does not use caffeine: Yes Type: carbonated beverages, coffee and tea additional social history: completed 9th grade, working on [employer] Vital Signs Vital Signs Vital Signs: 03/19/24 13:59 03/19/24 14:22 03/19/24 16:37 Temperature 98 F 97.9 F Temperature Source Oral Temporal Pulse Rate 69 88 Pulse Strength Respiratory Rate 14 18 Respiratory Effort Normal Non-Labored Respiratory Depth Normal Respiratory Pattern Normal Blood Pressure 104/83 H 116/86 H Blood Pressure Mean 90 96 Blood Pressure Source Monitor Monitor Blood Pressure Position Semi-Fowlers Semi-Fowlers Blood Pressure Location Right Arm Right Arm Pulse Ox 98 98 Oxygen Delivery Method Room Air Room Air Room Air 03/19/24 20:37 03/19/24 20:50 03/19/24 22:00 Temperature 98.2 F Temperature Source Oral Pulse Rate 81 Pulse Strength Respiratory Rate 15 Respiratory Effort Normal Non-Labored Respiratory Depth Normal Respiratory Pattern Normal Blood Pressure 105/65 Blood Pressure Mean 78 Blood Pressure Source Monitor Blood Pressure Position Semi-Fowlers Blood Pressure Location Right Arm Pulse Ox 97 96 Oxygen Delivery Method Room Air Room Air Room Air 03/20/24 02:00 03/20/24 02:30 03/20/24 07:48 Temperature 98.1 F 98.1 F Temperature Source Oral Oral Pulse Rate 78 78 Pulse Strength Respiratory Rate 14 14 Respiratory Effort Respiratory Depth Respiratory Pattern Blood Pressure 111/69 111/69 Blood Pressure Mean 83 83 Blood Pressure Source Monitor Monitor Blood Pressure Position Sitting Semi-Fowlers Blood Pressure Location Right Arm Left Arm Pulse Ox 94 94 96 Oxygen Delivery Method Room Air Room Air Room Air 03/20/24 08:21 03/20/24 08:30 03/20/24 10:00 Temperature 98.1 F Temperature Source Oral Pulse Rate 76 Pulse Strength Normal (2+) Respiratory Rate 16 Respiratory Effort Normal Non-Labored Respiratory Depth Normal Respiratory Pattern Normal Blood Pressure 96/72 Blood Pressure Mean 80 Blood Pressure Source Monitor Blood Pressure Position Sitting Blood Pressure Location Right Arm Pulse Ox 97 Oxygen Delivery Method Room Air Room Air 03/20/24 12:01 Temperature 98.1 F Temperature Source Oral Pulse Rate 77 Pulse Strength Respiratory Rate 16 Respiratory Effort Respiratory Depth Respiratory Pattern Blood Pressure 96/60 Blood Pressure Mean 72 Blood Pressure Source Monitor Blood Pressure Position Semi-Fowlers Blood Pressure Location Right Arm Pulse Ox 98 Oxygen Delivery Method Room Air Weight Weight: 77.7 kg Body Mass Index (BMI) 30.3 EEG Results Procedure Details EEG Procedure Details: YURI DAVIS is a 33 year old F with a past medical history of , who presents for evaluation of Electroencephalogram on DATE at TIME NIHSS NIHSS Nursing Documentation NIHSS Nursing Documentation: NIHSS: Ischemic Stroke/TIA Start: 03/19/24 14:08 Text: For PCU Patients: NIH and Neuro Check every 4 Status: Active hours, PRN and with change in RN caregiver. Freq: [id number] Protocol: Activity Type Activity Date Activity User E-sign Co-sign Detail Recorded Client Recorded Date Recorded By Document 03/20/24 12:14 ESTIVEN [id number] 03/20/24 12:17 ESTIVEN 03/20/24 12:14 NIH Stroke Scale [NIHSS] A score of 0 is normal or asymptomatic . Total possible score is 42. Inpatient: RN or Physician to activate a stroke alert for onset of new stroke symptoms or with NIHSS increase >/= 3 points. Following change in neurological status, NIHSS will be performed per physician order or more frequently PRN. -1a. Level of Consciousness Alert; keenly responsive -1b. LOC Questions Answers BOTH questions correctly. -1c. LOC Commands Performs both tasks correctly . -2. Best Gaze Normal -3. Visual No visual loss -4. Facial Palsy Normal symmetrical movements -5a. Left Arm No drift; arm holds 90 (or 45 ) degrees for full 10 seconds -5b. Right Arm No drift; arm holds 90 (or 45 ) degrees for full 10 seconds -6a. Left Leg No drift; leg holds 30-degree position for full 5 seconds -6b. Right Leg No drift; leg holds 30-degree position for full 5 seconds -7. Limb Ataxia Absent -8. Sensory Normal; no sensory loss -9. Best Language No aphasia; normal -10. Dysarthria Normal -11. Extinction and Inattention No abnormality -Total 0 Query Text:A score of 0 is normal or asymptomatic. Total possible score is 42 . ED: Notify Physician for NIHSS increase by > / = 3 points. Inpatient: RN or Physician to activate a stroke alert for NIHSS increase of > / = 3 points. Coma Scale [Assess] -Eye Opening Spontaneous -Motor Obeys Commands -Verbal Oriented [Total] -Coma Scale Total 15 NIHSS 1a. Level of Consciousness: Alert; keenly responsive 1b. LOC Questions: Answers BOTH questions correctly. 1c. LOC Commands: Performs both tasks correctly. 2. Best Gaze: Normal 3. Visual: No visual loss 4. Facial Palsy: Normal symmetrical movements 5a. Left Arm: No drift; arm holds 90 (or 45) degrees for full 10 seconds 5b. Right Arm: No drift; arm holds 90 (or 45) degrees for full 10 seconds 6a. Left Leg: No drift; leg holds 30-degree position for full 5 seconds 6b. Right Leg: No drift; leg holds 30-degree position for full 5 seconds 7. Limb Ataxia: Absent 8. Sensory: [id number] sensory loss; 9. Best Language: No aphasia; normal 10. Dysarthria: Normal 11. Extinction and Inattention: No abnormality Total: 1 Lab / Micro Data 03/19/24 11:18 03/20/24 05:55 Labs: Laboratory Results - last 24 hr 03/19/24 17:57: Troponin I High Sens 1214 H* 03/20/24 05:55: Sodium 140, Potassium 3.2 L, Chloride 107, Carbon Dioxide 23.0, Anion Gap 10, BUN 8, Creatinine 0.85, Estim Creat Clear Calc 91.17, Est GFR (MDRD) Af Amer 97, Est GFR (MDRD) Non-Af 80, BUN/Creatinine Ratio 9.4 L, Glucose 107 H, Calcium 8.5, Triglycerides 209 H, Cholesterol 127, LDL Cholesterol 52, VLDL Cholesterol 42 H, HDL Cholesterol 33 L Imaging Radiology Impression Brain MRI 03/19/24 13:03 IMPRESSION: Acute/subacute ischemic changes involving the right ascencio radiata as well as few small foci of acute/subacute ischemic changes in the right parietal lobe and right temporal lobe. No midline shift, mass effect, or acute intracranial hemorrhage identified. Reading Location: [facility] Active Medications Active Medications Active Medications: Current Medications Generic Name Dose Route Start Last Admin Trade Name Freq PRN Reason Stop Dose Admin Acetaminophen 650 mg 03/19/24 14:08 03/19/24 21:02 Acetaminophen 325 Mg Tablet PO 650 mg Q4H PRN PRN Administration Pain 1-10 or Fever Aspirin 81 mg 03/20/24 08:00 03/20/24 08:43 Aspirin 81 Mg Tab.Chew PO 81 mg BREAKFAST MINDY Administration Atorvastatin Calcium 80 mg 03/19/24 22:00 03/19/24 21:09 Atorvastatin Calcium 80 Mg Tablet PO 80 mg QHS MINDY Administration Carvedilol 3.125 mg 03/19/24 17:00 03/20/24 08:44 Carvedilol 3.125 Mg Tablet PO Not Given BIDCM [facility] Protocol Famotidine 40 mg 03/20/24 10:00 03/20/24 08:44 Famotidine 20 Mg Tablet PO 40 mg DAILY MINDY Administration Heparin Sodium (Porcine) 5,000 unit 03/19/24 22:00 03/20/24 08:44 Heparin Injection (Vial) 5,000 Unit/Ml Vial SC 5,000 unit Q12 MINDY Administration Hydralazine HCl 5 mg 03/19/24 14:08 Hydralazine 20 Mg/Ml Vial IV 03/20/24 14:08 Q30M PRN maintain BP parameters with HR <60 Labetalol HCl 10 - 20 mg 03/19/24 14:08 Labetalol 20mg/4ml Syringe IV 03/20/24 14:08 Q10M PRN PRN maintain BP parameters with HR >/=60
--- NOTE | 2024-03-20 16:17 | PCM.DC ---
Discharge Instructions Diet Discharge Diet: No restrictions DC O2, CPAP, BIPAP needs Home O2 Discharge instructions: No Dressing / Incision Discharge Activity: Return to Normal Activity Weight Bearing Status: Full weight bearing Follow Up Care Test Results: Test results from this visit will be discussed in further detail at your follow-up appointment, if applicable. Discharge Plan Admission Admit Date/Time: 03/19/24 12:48 Primary Reason for Your Visit: acute stroke Attending Provider: Bernard Welsh Primary Care Provider: Ranjeet Bernard Consulting Providers: Navdeep Villatoro; Glen Hartman; Hayde Campbell; Kell Gomez; Tiffanie Bishop; Ryan Paige; Angella Mosquera; Ector Capps; Bart Wong; Bhupinder Stallworth; Priya Martinez; Nick Downing; Kalee Garcia; Chris Moncada; Ian Lopez; Landon Anderson; Tevin Dial; Dharmesh Jean-Baptiste; Lilo Lopez; Donna Clarke Instructions Additional Instructions / Restrictions: I would advise against smoking, this will increase your risk of stroke and heart attack Discharge Orders/Prescriptions Prescriptions: New atorvastatin [Lipitor] 20 mg tablet 20 mg PO DAILY Qty: 30 0RF Continued aspirin 81 mg tablet,chewable 81 tab PO DAILY Qty: 90 3RF Discontinued famotidine 40 mg tablet 40 mg PO DAILY Eliquis 5 mg tablet 5 mg PO BID Qty: 180 3RF atorvastatin 40 mg tablet 40 mg PO QHS Qty: 90 3RF Brilinta 90 mg tablet 90 mg PO BID Qty: 180 3RF carvedilol [Coreg] 3.125 mg tablet 3.125 mg PO BID Qty: 180 3RF Rx Instructions: must administer with a meal/food PNV cmb#95-ferrous fumarate-FA 28 mg iron- 800 mcg tablet 1 tab PO DAILY Spiriva Respimat 2.5 mcg/actuation mist 2 puff inhalation DAILY Patient Comments: Take 2 (TWO) puffs once DAILY acetaminophen 325 mg Tablet 650 mg PO Q4H PRN PRN (Reason: Pain Or Fever) Qty: 0 0RF Other Ambulatory Orders: 30 Day Event Recorder Preventi (Routine) Timeframe: 1 Day Facility: [facility] - Location: Cardiovascular Services Ordered By: Dr. Bernard Welsh Referrals / Follow Up: Ranjeet Bernard MD [Primary Care Provider] - Within 2 Weeks Disposition Disposition (needs filled in before D/C Order can be placed): Home, Self Care
[2024-03-20] MEDS: Carvedilol 3.125 MG TABLET PO (16:36)
--- NOTE | 2024-03-20 16:51 | PCM.DC.SUM ---
Providers Date of Admission: 03/19/24 Date of Discharge: 03/20/24 Primary Care Physician: Dr. Ranjeet Bernard MD Consultations 03/19/24 14:08 Consult: Tele-Neurology Routine Consulting Provider: [facility] Reason for Consult: Acute Ischemic Stroke/TIA EMERGENT Consult: No MD Notified: Yes Date Notified: 03/19/24 Time Notified: 12:53 Method of Notification: Answering Service Nursing Unit Staff Notify [facility] of Tele-Neurology Consult: Yes Reason For Visit: LEFT SIDED WEAKNESS Diagnosis Discharge Diagnosis (1) Acute left-sided weakness: Status: Acute Code(s): R53.1 - Weakness Plan 1. Right ascencio radiata acute ischemic stroke #2 coronary artery disease-noncompliant with outpatient treatment, patient will remain on a statin, a baby aspirin, and I have placed her on a beta-mima. #3 elevated troponin-secondary to ischemic stroke #4 past history of left ventricular apical thrombus-patient was noncompliant with Eliquis, echocardiogram will be obtained #5 hypokalemia-patient will be given potassium replacement, BMP will be repeated #6 leukocytosis-etiology unclear, it appears that the patient has a persistent leukocytosis on past labs that were drawn here at the hospital, she may need further workup as an outpatient to exclude hematological problem. Total clinical time spent by myself addressing the patient's medical issues, reviewing all of her data, and collaborating with the patient's care team: 75 minutes Medications at Discharge Home Medications aspirin 81 mg chewable tablet 81 tab PO DAILY #90 tabs 03/23/21 atorvastatin 20 mg tablet (Lipitor) 20 mg PO DAILY #30 tabs 03/20/24 Hospital Course Operations None Procedures 2-D Echocardiogram Summary of Care Provided Minutes Spent on Discharge: 31 Hospital Course: This 33-year-old white male was seen in the emergency room at [facility] with complaints of left arm and leg weakness, she also complained of some slurred speech. Stroke team was called when she arrived at the emergency room, imaging studies were unremarkable and her NIH score was 0. Teleneurology declined administer tenecteplase. Labs are remarkable for a white blood cell count of 18.1 and a potassium of 3.1. Patient's troponin was elevated at 1561 but the patient denied any chest pain or shortness of breath. EKG showed normal sinus rhythm without evidence of ischemia. Patient was placed in observation status on PCU, NIH scores were monitored, patient had an echocardiogram performed which showed no evidence of atrial septal defect or thrombus. Patient was administered aspirin and had an MRI of the brain which showed a right ascencio radiata ischemic stroke. Patient was seen in consultation by teleneurology who advised keeping the patient on aspirin and a statin and obtaining hypercoagulability studies. Patient was seen by PT OT and speech, they did not feel patient required any follow-up as an outpatient with any of these therapies. On 03/20/2024, patient was seen and examined: On examination she appeared in good health and spirits, she does not appear to be in any distress. Vital signs as documented. Skin warm and dry and without overt rashes. Neck without JVD, thyroid appears normal, trachea is midline, neck is supple. Lungs clear, normal air movement was noted. Heart exam notable for regular rhythm, normal sounds and absence of murmurs, rubs or gallops. Abdomen unremarkable and without evidence of organomegaly, masses, or abdominal aortic enlargement, bowel sounds are present in all 4 quadrants, no abdominal tenderness was noted. Extremities nonedematous, no cyanosis was noted, no clubbing was noted. Neuro: Cranial nerves II through XII are grossly intact, no focal motor deficits were noted, sensation to light touch and pinprick is intact, motor exam 5/5 throughout. Psych: Patient is alert and oriented x3, she does not appear anxious or depressed, she does not appear agitated. Patient appears stable for discharge home on 03/20/2024. Weight / BMI Weight Weight: 77.7 kg Body Mass Index (BMI) 30.3 ABG / Lab / Microbiology Data 03/19/24 11:18 03/20/24 05:55 Laboratory: Laboratory Results - last 24 hr 03/20/24 17:05: Free Protein S 81, Total Protein S 66 Radiography Diagnostic Testing: Radiology Impression Brain MRI 03/19/24 13:03 IMPRESSION: Acute/subacute ischemic changes involving the right ascencio radiata as well as few small foci of acute/subacute ischemic changes in the right parietal lobe and right temporal lobe. No midline shift, mass effect, or acute intracranial hemorrhage identified. [facility] Echocardiogram 03/19/24 13:03 Interpretation Summary The estimated ejection fraction is 65 %. No evidence for diastolic dysfunction. Trivial mitral valve insufficiency. Ordering Physician: Bernard Welsh Performed By: Don Hurst RCS D/C Instructions Discharge Diet: No restrictions Weight Bearing Status: Full weight bearing DC O2, CPAP, BIPAP Needs Home O2 Discharge instructions: No Meaningful Use Info Meaningful Use Meaningful Use Diagnoses (Choose all that apply): Ischemic CVA CVA Therapy Assessed for PT,OT and/or ST?: Yes Ischemic Stroke Antithrombotic order at d/c?: Yes Dx of Atrial fib/flutter?: No Statin Dosing Therapy Reference: STATIN DOSE THERAPY REFERENCE: * Patients > 75 years receive moderate or high dose statin therapy. * Patients 75 years or YOUNGER should receive HIGH intensity statin dose unless contraindicated. You will be required to document reason for non-treatment if statin daily dose does not meet guidelines. HIGH DOSE STATIN THERAPY DAILY Atorvastatin > than or = to 40 mg Rosuvastatin > than or = to 20 mg Amlodipine + Atorvastatin > than or = to 2.5/40 mg Ezetimibe + Simvastatin 10/80 mg Simvastatin 80mg Statins at discharge?: Yes If patient is 75 or younger, pt will be discharged on HIGH intensity statin.: No High intensity statin for patient 75 or younger not ordered due to: Not needed due to low LDL Primary Dx Acute Ischemic CVA?: Yes Discharge Plan Admission Admit Date/Time: 03/19/24 12:48 Primary Reason for Your Visit: acute stroke Attending Provider: Bernard Welsh Primary Care Provider: Ranjeet Bernard Consulting Providers: Navdeep Villatoro; Glen Hartman; Hayde Campbell; Kell Gomez; Tiffanie Bishop; Ryan Paige; Angella Mosquera; Ector Capps; Bart Wong; Bhupinder Stallworth; Priya Martinez; Nick Downing; Kalee Garcia; Chris Moncada; Ian Lopez; Landon Anderson; Tevin Dial; Dharmesh Jean-Baptiste; Lilo Lopez; Donna Clarke Instructions Additional Instructions / Restrictions: I would advise against smoking, this will increase your risk of stroke and heart attack Discharge Orders/Prescriptions Prescriptions: New atorvastatin [Lipitor] 20 mg tablet 20 mg PO DAILY Qty: 30 0RF Continued aspirin 81 mg tablet,chewable 81 tab PO DAILY Qty: 90 3RF Discontinued famotidine 40 mg tablet 40 mg PO DAILY Eliquis 5 mg tablet 5 mg PO BID Qty: 180 3RF atorvastatin 40 mg tablet 40 mg PO QHS Qty: 90 3RF Brilinta 90 mg tablet 90 mg PO BID Qty: 180 3RF carvedilol [Coreg] 3.125 mg tablet 3.125 mg PO BID Qty: 180 3RF Rx Instructions: must administer with a meal/food PNV cmb#95-ferrous fumarate-FA 28 mg iron- 800 mcg tablet 1 tab PO DAILY Spiriva Respimat 2.5 mcg/actuation mist 2 puff inhalation DAILY Patient Comments: Take 2 (TWO) puffs once DAILY acetaminophen 325 mg Tablet 650 mg PO Q4H PRN PRN (Reason: Pain Or Fever) Qty: 0 0RF Other Ambulatory Orders: 30 Day Event Recorder Preventi (Routine) Timeframe: 1 Day Facility: [facility] - Location: Cardiovascular Services Ordered By: Dr. Bernard Welsh Referrals / Follow Up: Ranjeet Bernard MD [Primary Care Provider] - Within 2 Weeks Disposition Disposition (needs filled in before D/C Order can be placed): Home, Self Care Charges/Coding Visit Charges Inpatient E&M: 97878 Disch Hosp >30min
[2024-03-20 17:44] LABS: International Normalized Ratio 0.9; Prothrombin Time (Protime)PT. 12.6 SECONDS (11.7-14.9)
[2024-03-20 17:45] LABS: Partial Thromboplast Time 30.1 Seconds (24.1-36.2)
[2024-03-20 17:46] LABS: Fibrinogen 465 mg/dl (203-444)
[2024-03-20 19:44] LABS: Hemoglobin A1c 6.2 % (3.8-5.6)
[2024-03-23 00:07] LABS: Protein S, Free 81 % (61-136); Protein S, Total 66 % (60-150)
[2024-03-24 03:06] LABS: Dilute Russell Viper Venom 31.4 sec (0.0-47.0); Interpretation Comment: (.); PTT-LA 37.1 sec (0.0-43.5); Protein C Antigen 104 % (60-150); Protein C, Functional 111 % (73-180); Protein S, Free 81 % (61-136); Protein S, Funtional 51 % (63-140); Protein S, Total 80 % (60-150); Thrombin Time 17.3 sec (0.0-23.0); dPT Confirm Ratio 1.11 Ratio (0.00-1.34)
[2024-03-26 14:08] LABS: Anti-Cardiolipin Ab, IgG, Qn < 9 GPL U/mL (0-14); Anti-Cardiolipin Ab, IgM, Qn < 9 MPL U/mL (0-12); Antithrombin 3 Function 117 % (75-135); Beta-2-Glycoprotein I IgA <9 (0-25); Beta-2-Glycoprotein I IgG <9 (0-20); Beta-2-Glycoprotein I IgM <9 (0-32)
== END 2024-03-20 18:20 | disposition home or self-care (01) ==
LOC: ED 12:56 → PCU 13:09
PROVIDERS: Admitting Provider Internal Medicine; Emergency Provider Emergency Medicine; PCP Family Medicine; Visit Provider Internal Medicine
DX: I63.9 Cerebral infarction, unspecified (principal); G81.94 Hemiplegia, unspecified affecting left nondominant side; F17.210 Nicotine dependence, cigarettes, uncomplicated; R47.81 Slurred speech; Z79.01 Long term (current) use of anticoagulants; I25.5 Ischemic cardiomyopathy; Z79.82 Long term (current) use of aspirin; I25.10 Atherosclerotic heart disease of native coronary artery without angina pectoris; I25.2 Old myocardial infarction; J45.909 Unspecified asthma, uncomplicated; R29.810 Facial weakness; Z79.899 Other long term (current) drug therapy
CPT/HCPCS: Q9957; 36415; 70450; 70496; 70498; 70551; 71046; 80048; 80061; 81240; 81241; 83036; 84484; 85025; 85300; 85302; 85303; 85305; 85306; 85384; 85610; 85730; 86140; 86146; 86147; 92610; 93005; 93306; 94762; 96372; 97161; 97166; 97802; 99221; 99285; 99406; Q9967; G0378

== ENCOUNTER → 2024-03-25 | Outpatient (CLI) | payer MEDICAID, SELFPAY ==
[2021-05-28 09:41] VITALS: BMI 30.4
[2024-03-25 17:50] LABS: Absolute Neutrophil Count 11.6 X10^3/uL (2.0-7.7); Basophil# 0.03 X10^3/uL; Basophil% 0.2 % (0-1); Eosinophils% 1.3 % (0-5); Hematocrit 34.8 % (37-47); Hemoglobin 10.9 g/dL (12.0-15.0); Lymphocyte % 17.3 % (19-41); Mean Corp Hgb Conc 31.3 g/dL (32-36); Mean Corpuscular Hgb 26.7 pg (27.0-32.0); Mean Corpuscular Volume 85.1 fL (81-99); Monocyte# 0.57 X10^3/uL; Monocyte% 3.8 % (0-10); NRBC Flagged by Analyzer 0 % (0-5); Neutrophil # 11.57 X10^3/uL (2.7-7.7); Neutrophil % 77.1 % (47-70); Platelet Count 523 K/mm3 (150-450); RBC Distribution Width CV 15.3 % (11.6-14.6); Red Blood Count 4.09 M/mm3 (4.2-5.4)
[2024-03-25 18:26] LABS: ALB/GLOB Ratio 0.7 RATIO (0.9-2.4); AST(SGOT) 7 U/L (15-37); Alanine Aminotransfer ALT/SGPT 17 U/L (13-56); Alkaline Phosphatase 90 U/L (45-117); Anion Gap 8 (5-15); BUN 4 mg/dL (7-18); BUN/Creat Ratio 4.6 RATIO (10-20); Calcium,Total 8.8 mg/dL (8.5-10.1); Chloride 105 mmol/L (98-107); Creatinine, Serum 0.88 mg/dL (0.55-1.02); EST Glomerular Filtration Rate 78 mL/min (>60); Est Glom Filt Rate - Afr Amer 94 mL/min (>60); Globulin 4.1 g/dL (2.2-4.2); Glucose 160 mg/dL (74-106); Potassium 3.1 mmol/L (3.5-5.1); Protein, Total 7.1 g/dL (6.4-8.2); Sodium Level 137 mmol/L (136-145); Uric Acid 4.1 mg/dL (2.6-6.0)
== END | disposition home or self-care (01) ==
LOC: MFPLAB 15:13
PROVIDERS: PCP Family Medicine; Referring Provider Family Medicine; Visit Provider Family Medicine
DX: I25.5 Ischemic cardiomyopathy (principal); M79.672 Pain in left foot
CPT/HCPCS: 36415; 80053; 84550; 85025